=== PATIENT | female | born 1945 | race Caucasian/White ===

== ENCOUNTER 2020-08-25 07:20 | Outpatient (REF) | payer MEDICARE, SELFPAY ==
[2020-08-25 11:41] LABS: Alanine Aminotransferase 14 U/L (0-31); Albumin Level 4.3 g/dL (3.5-5.0); Alkaline Phosphatase 94 U/L (39-117); Aspartate Amino Transferase 19 U/L (5-31); Bilirubin Direct < 0.2 mg/dL (0.0-0.5); Bilirubin Total 0.3 mg/dL (0.0-1.0); Cholesterol 158 mg/dL; HDL Cholesterol 42 mg/dL; LDL Cholesterol Calculated 89 mg/dl; Total Protein 6.7 g/dL (6.5-8.0); Triglycerides 139 mg/dL
== END 2020-08-25 07:21 | disposition home or self-care (01) ==
LOC: HO.HMGCLDS 07:20
PROVIDERS: PCP Internal Medicine; Visit Provider Internal Medicine
DX: E66.9 Obesity, unspecified (principal); E78.00 Pure hypercholesterolemia, unspecified
CPT/HCPCS: 80061; 80076

== ENCOUNTER 2020-09-22 08:58 | Outpatient (REF) | payer MEDICARE, SELFPAY ==
--- NOTE | 2020-09-22 09:02 | XR_ITS ---
EXAMINATION: XR KNEE, RIGHT CLINICAL INFORMATION: Trauma COMPARISON: None TECHNIQUE: Four views of the right knee. FINDINGS: Bone alignment is normal. No fracture or dislocation is seen. There is mild medial femoral tibial joint space narrowing. There are small osteophytes at the patellofemoral joint. There is a large joint effusion. XR/XR knee RT 4V IMPRESSION: Mild degenerative changes. Large joint effusion.
== END 2020-09-22 08:59 | disposition home or self-care (01) ==
LOC: HO.HMGCX 08:58
PROVIDERS: PCP Internal Medicine; Visit Provider Nurse Practitioner Family
DX: S89.91XA Unspecified injury of right lower leg, initial encounter (principal)
CPT/HCPCS: 73564

== ENCOUNTER 2020-10-08 09:42 | Outpatient (REF) | payer MEDICARE, SELFPAY ==
--- NOTE | 2020-10-08 10:53 | XR_ITS ---
EXAMINATION: XR KNEES, STANDING AP XR KNEE, RIGHT CLINICAL INFORMATION: Knee pain COMPARISON: Radiographs right knee 09/22/2020 TECHNIQUE: Standing AP view of both knees is performed along with axial patellar view right knee. FINDINGS: Right: There is moderate narrowing medial knee joint compartment. No erosive change or subchondral sclerosis. Axial view patella shows no lateralization or tilting. There is questionable chondrocalcinosis in region of trochlear notch. Left: There is moderate narrowing medial knee joint compartment. No erosive change or subchondral sclerosis. XR/XR knee standing BI IMPRESSION: Narrowing bilateral medial knee joint compartments, greater on right.
--- NOTE | 2020-10-08 10:53 | XR_ITS ---
EXAMINATION: XR KNEES, STANDING AP XR KNEE, RIGHT CLINICAL INFORMATION: Knee pain COMPARISON: Radiographs right knee 09/22/2020 TECHNIQUE: Standing AP view of both knees is performed along with axial patellar view right knee. FINDINGS: Right: There is moderate narrowing medial knee joint compartment. No erosive change or subchondral sclerosis. Axial view patella shows no lateralization or tilting. There is questionable chondrocalcinosis in region of trochlear notch. Left: There is moderate narrowing medial knee joint compartment. No erosive change or subchondral sclerosis. XR/XR knee RT 2V IMPRESSION: Narrowing bilateral medial knee joint compartments, greater on right.
== END 2020-10-08 09:43 | disposition home or self-care (01) ==
LOC: HO.HOSX 09:42
PROVIDERS: Visit Provider Physician Assistant
DX: M23.91 Unspecified internal derangement of right knee (principal); S89.91XA Unspecified injury of right lower leg, initial encounter; X58.XXXA Exposure to other specified factors, initial encounter; Y93.9 Activity, unspecified; Y92.9 Unspecified place or not applicable; Y99.9 Unspecified external cause status
CPT/HCPCS: 73560; 73565; 99202

== ENCOUNTER 2020-10-15 09:34 | Outpatient (REF) | payer MEDICARE, SELFPAY ==
--- NOTE | 2020-10-15 09:36 | MR_ITS ---
EXAMINATION: MR KNEE WITHOUT CONTRAST, RIGHT CLINICAL INFORMATION: Right knee constant pain. Burning. Aching. COMPARISON: Radiographs dated 10/08/2020. TECHNIQUE: MRI of the knee without contrast was performed using routine sequences on a high-field scanner. FINDINGS: MENISCI: Medial Meniscus: A complex tear is present at both the posterior horn and body with a dominant horizontal component at the posterior horn and a longitudinal component at the extruded meniscal body. There is significant loss of meniscal tissue at both the posterior horn and body, potentially the result of a prior meniscal surgery. There is a 1 cm flap fragment at the posterior horn near the root insertion which is displaced proximally and laterally (images 23 and 24/30 of series 5). Lateral Meniscus: There is a chronic high-grade partial tear of the posterior horn with significant undersurface fraying. A few residual intact fibers are apparent. Significant free-edge fraying is present at the lateral meniscal body. LIGAMENTS: Cruciate: The ACL is diminutive, likely due to normal variation. A chronic sprain or prior partial tear are possible, though felt to be less likely. There is mild increased intrasubstance signal within the PCL with ligamentous thickening, suggesting mucoid degeneration. PCL is intact. Collateral: Edema signal around the medial collateral and fibular collateral ligaments is likely reactive to the underlying meniscal abnormalities. Collateral ligaments are intact. EXTENSOR MECHANISM: Quadriceps and patellar tendons are intact. ARTICULAR CARTILAGE/BONE: Patellofemoral Compartment: There is lateral translation of the patella by 1.3 cm relative to the central trochlear groove, though the knee is fully extended. Minimal chondral fissuring is present at the patella. There are small marginal osteophytes. Minimal chondral fissuring and thinning in the trochlea, more pronounced at the medial facet. Medial Compartment: There is mild generalized chondral thinning and surface irregularity at the medial femoral condyle and more [id number] cartilage loss and surface irregularity at the medial tibial plateau. Small marginal osteophytes. Lateral Compartment: High-grade, full-thickness articular cartilage loss is present at the lateral tibial spine involving much of the medial third of the lateral tibial plateau. More mild chondral thinning is present at the remainder of the lateral tibial plateau. A small full-thickness chondral fissure is present at the posterior weightbearing surface of the lateral femoral condyle with more mild surrounding nonuniform chondral thinning. Small marginal osteophytes. JOINT FLUID AND BURSAE: Large joint effusion. Moderate pes anserine bursitis. Trace Wiley's cyst. A 1 x 0.5 x 0.3 cm osseous fragment in the medial gastrocnemius recess likely corresponds to a loose body. A fragmented osteophyte could also have this appearance. MR/MR knee RT wo con IMPRESSION: 1. Chronic complex tear of the medial meniscus with a flap fragment at the posterior horn and extrusion of the meniscal body, likely superimposed on chronic changes of prior meniscal surgery. 2. Chronic partial tear of the posterior horn of the lateral meniscus at the root insertion and fraying at the meniscal body. 3. [id number] medial compartment osteoarthritis. More mild patellofemoral and lateral compartment osteoarthritis. 4. Large joint effusion, small Wiley's cyst, and moderate pes anserine bursitis.
== END 2020-10-15 09:35 | disposition home or self-care (01) ==
LOC: HO.MRI 09:34
PROVIDERS: Visit Provider Physician Assistant
DX: M23.91 Unspecified internal derangement of right knee (principal)
CPT/HCPCS: 73721

== ENCOUNTER 2020-10-21 | Outpatient (REF) | payer MEDICARE, SELFPAY | END 2020-10-21 00:01 | disposition home or self-care (01) | LOC: HO.VC | PROVIDERS: Visit Provider Internal Medicine | DX: Z23 Encounter for immunization (principal) | CPT/HCPCS: 0011A ==

== ENCOUNTER → 2020-10-21 10:34 | Outpatient (BNVA) | payer MEDICARE, SELFPAY | PROVIDERS: PCP Internal Medicine; Visit Provider Physician Assistant | DX: M17.11 Unilateral primary osteoarthritis, right knee (principal); S83.206D Unspecified tear of unspecified meniscus, current injury, right knee, subsequent encounter | CPT/HCPCS: 20610; 99212; J1020 ==

== ENCOUNTER 2020-11-17 | Outpatient (REF) | payer MEDICARE, SELFPAY | END 2020-11-17 00:01 | disposition home or self-care (01) | LOC: HO.VC | PROVIDERS: Visit Provider Internal Medicine | DX: Z23 Encounter for immunization (principal) | CPT/HCPCS: 0012A ==

== ENCOUNTER 2021-01-09 09:39 | Outpatient (REF) | payer MEDICARE, SELFPAY ==
--- NOTE | ~2021-01-09 | MM_ITS ---
EXAMINATION: MM SCREENING DIGITAL BREAST TOMOSYNTHESIS, BILATERAL CLINICAL INFORMATION: Screening. Asymptomatic. The lifetime risk of breast cancer based on the Tyrer-Cuzick Model is 2%. COMPARISON: Mammography: 11/01/2019, 10/06/2017, 06/09/2017, 02/24/2014 TECHNIQUE: Digital breast tomosynthesis is performed in both the craniocaudal and mediolateral oblique views along with computer-aided detection (CAD). Synthesized 2D images are generated from the tomosynthesis. FINDINGS: The breasts are almost entirely fatty (ACR BI-RADS breast composition Category a). There are no significant masses, abnormal calcifications, or other abnormalities. There are incidental vascular calcifications. The skin contours are smooth. No significant changes. MM/MM tomosynthesis screening BI IMPRESSION: No mammographic evidence of malignancy. ASSESSMENT: BI-RADS 1: Negative RECOMMENDATION: Routine annual mammography screening. This patient's information was entered into a reminder system with a target due date for their next mammogram.
== END 2021-01-09 09:40 | disposition home or self-care (01) ==
LOC: HO.MAMMO 09:39
PROVIDERS: PCP Internal Medicine; Visit Provider Internal Medicine
DX: Z12.31 Encounter for screening mammogram for malignant neoplasm of breast (principal)
CPT/HCPCS: 77063; 77067

== ENCOUNTER 2021-01-19 07:52 | Outpatient (REF) | payer MEDICARE, SELFPAY ==
[2021-01-19 11:24] LABS: MANUAL DIFF FLAG NO
[2021-01-19 11:33] LABS: Basophils Absolute Auto 0.1 X10*3/uL (0.0-0.2); Basophils Percent Auto 1.2 % (0-2); Eosinophils Absolute Auto 0.2 X10*3/uL (0.0-0.4); Eosinophils Percent Auto 2.7 % (0-4); Hematocrit 33.9 % (37-47); Hemoglobin 10.4 g/dl (12.0-16.0); Imm Gran Abs Auto 0.04 X10*3/uL (0.00-0.03); Imm Gran Pct Auto 0.5 % (0.0-0.4); Immature Retic Fraction 11.2 % (3.0-15.9); Lymphocytes Absolute Auto 1.5 X10*3/uL (1.2-4.9); Lymphocytes Percent Auto 19.6 % (20-40); Mean Corpuscular HGB Conc 30.7 g/dl (31.0-35.0); Mean Corpuscular Volume 94.4 fL (80-98); Mean Platelet Volume 9.8 fL (9.4-12.3); Monocytes Absolute Auto 0.5 X10*3/uL (0.1-1.2); Monocytes Percent Auto 6.6 % (2-11); Neutrophils Absolute Auto 5.4 X10*3/uL (2.0-8.3); Neutrophils Percent Auto 69.4 % (45-73); Platelet Count 377 X10*3/uL (160-400); Red Blood Count 3.59 X10*6/uL (4.20-5.50); Red Cell Distribution Width 14.2 % (11.0-16.0); Retic HGB Equivalent 31.7 pg (30.0-35.0); Reticulocyte Percent 1.5 % (0.5-1.8); Reticulocytes Absolute 0.055 X10*6/uL (0.026-0.095); White Blood Count 7.8 X10*3/uL (4.8-10.8)
[2021-01-19 11:48] LABS: Estimated Average Glucose 123 mg/dL; Hemoglobin A1c % 5.9 %
[2021-01-19 11:59] LABS: Glucose Urine UA NEG (NEG); Leukocyte Esterase Urine 1+ (NEG); Nitrite Urine POS (NEG); Urine Blood TRACE (NEG); Urine Ketones NEG (NEG); Urine Protein NEG (NEG-TRACE)
[2021-01-19 12:04] LABS: Appearance Urine HAZY; Color Urine YELLOW
[2021-01-19 12:07] LABS: Alanine Aminotransferase 12 U/L (0-31); Albumin Level 4.1 g/dL (3.5-5.0); Alkaline Phosphatase 99 U/L (39-117); Anion Gap 14 (12-20); Aspartate Amino Transferase 15 U/L (5-31); Bilirubin Total 0.4 mg/dL (0.0-1.0); Blood Urea Nitrogen 19 mg/dL (9-16); Calcium 9.3 mg/dL (8.4-10.2); Carbon Dioxide 29 mmol/L (22-29); Chloride 102 mmol/L (96-108); Cholesterol 181 mg/dL; Estimated Glomerular Filt Rate 41; Glucose Random 113 mg/dL (60-115); HDL Cholesterol 41 mg/dL; Iron 56 mcg/dL (30-160); LDL Cholesterol Calculated 112 mg/dl; Percent Iron Saturation 21 % (15-50); Sodium 140 mmol/L (135-145); Total Iron Binding Capacity 270 mcg/dL (228-428); Total Protein 6.7 g/dL (6.5-8.0); Triglycerides 142 mg/dL; Unsaturated Iron Binding 214 ug/dL
[2021-01-19 12:12] LABS: Ferritin 198 ng/mL (10-250); Free T4 (Free Thyroxine) 0.75 ng/dL (0.71-1.85); Thyroid Stimulating Hormone 1.94 uIU/mL (0.32-4.0); Vitamin D 25-OH Total 56.7 ng/mL (>30)
[2021-01-19 12:17] LABS: Folate 14.6 ng/mL (> or = 4.0); Vitamin B12 277 pg/mL (200-900)
[2021-01-19 12:29] LABS: Creatinine Urine 69.88 mg/dL; Microalbum/Creatinine Ratio Ur 11.4 ug/mg cr
[2021-01-19 12:32] LABS: Bacteria Urine 4+ /LPF; RBC Urine 0-2 /HPF (0); Squamous Epithelial Cell Urine TRACE /LPF
== END 2021-01-19 07:53 | disposition home or self-care (01) ==
LOC: HO.HMGCLDS 07:52
PROVIDERS: PCP Internal Medicine; Visit Provider Internal Medicine
DX: E78.00 Pure hypercholesterolemia, unspecified (principal); E11.65 Type 2 diabetes mellitus with hyperglycemia; I10 Essential (primary) hypertension; D64.9 Anemia, unspecified
CPT/HCPCS: 36415; 80053; 80061; 81001; 82043; 82306; 82607; 82728; 82746; 83036; 83540; 84439; 84443; 85025; 85045

== ENCOUNTER → 2021-01-20 08:46 | Outpatient (BNVA) | payer MEDICARE, SELFPAY | PROVIDERS: Visit Provider Physician Assistant | DX: M17.11 Unilateral primary osteoarthritis, right knee (principal) | CPT/HCPCS: 99212 ==

== ENCOUNTER → 2021-04-01 08:14 | Outpatient (BNVA) | payer MEDICARE, SELFPAY | PROVIDERS: PCP Internal Medicine; Visit Provider Physician Assistant | DX: M25.561 Pain in right knee (principal); M17.11 Unilateral primary osteoarthritis, right knee; S83.206A Unspecified tear of unspecified meniscus, current injury, right knee, initial encounter; X58.XXXA Exposure to other specified factors, initial encounter; Y93.9 Activity, unspecified; Y92.9 Unspecified place or not applicable; Y99.8 Other external cause status; M81.0 Age-related osteoporosis without current pathological fracture; E11.65 Type 2 diabetes mellitus with hyperglycemia; I10 Essential (primary) hypertension; E78.00 Pure hypercholesterolemia, unspecified; Z88.8 Allergy status to other drugs, medicaments and biological substances | CPT/HCPCS: 20610; 99212; J1020 ==

== ENCOUNTER 2021-05-21 09:37 | Outpatient (REF) | payer MEDICARE, SELFPAY ==
--- NOTE | ~2021-05-21 | MM_ITS ---
EXAMINATION: BONE DENSITOMETRY CLINICAL INDICATION: Anesthesia of skin. COMPARISON: Previous BD dated 11/24/2017 and baseline BD dated 07/10/2009. TECHNIQUE: Using a [employer] DXA System (software version: 13.1) manufactured by [employer], dual-energy x-ray absorptiometry was performed of the lumbar spine and left hip. The images are of good technical quality. Summary results are attached. FINDINGS: AP SPINE L1-L4: Current: BMD 1.081 g/cm2, Z-score 0.4, T-score -0.8, normal, 2.9% increase from previous, 2.6% decrease from baseline (<5% change is not significant). Prior: BMD 1.051 g/cm2. Baseline: BMD 1.110 g/cm2. LEFT FEMUR, NECK: Current: BMD 0.773 g/cm2, Z-score -0.3, T-score -1.9, osteopenia. Prior: BMD 0.812 g/cm2. Baseline: BMD 0.865 g/cm2. LEFT FEMUR, TOTAL: Current: BMD 0.857 g/cm2, Z-score 0.2, T-score -1.2, osteopenia, 3.2% decrease from previous, 7.2% decrease from baseline (<5% change is not significant). Prior: BMD 0.885 g/cm2. Baseline: BMD 0.923 g/cm2. IDENTIFIED RISK FACTORS: Low calcium intake, history of fracture (adult). Early menopause, secondary osteoporosis, hysterectomy, bilateral oophorectomy. HISTORY OF FRACTURE: Lower leg. MEDICATIONS: Calcium supplements or multivitamin, vitamin D. MM/XR DEXA axial skeleton IMPRESSION: 1. DIAGNOSIS: Osteopenia based on the lowest T-score value of -1.9 in the femoral neck applying World Health Organization criteria. 2. 10-YEAR FRACTURE RISK PREDICTION, FRAX: Major osteoporotic fracture (clinical spine, forearm, hip or shoulder) 12.6%. Hip fracture 3.1%. 3. Treatment Recommendations: NOF guidelines recommend consideration for treatment in postmenopausal women and men age 50 and older presenting with the following: -A hip or vertebral (clinical or morphometric) fracture. -T-score less than or equal to -2.5 at the femoral neck or spine after appropriate evaluation to exclude secondary causes. -Low bone mass at the hip or spine and a 10-year fracture probability by FRAX of greater than or equal to 3% for hip fracture or greater than or equal to 20% for major osteoporotic fracture based on the [place] adapted WHO algorithm. 4. Other Recommendations: All treatment decisions require clinical judgment and consideration of individual patient factors, including patient preferences, comorbidities, previous drug use, risk factors not captured in the FRAX model (e.g. frailty, falls, vitamin D deficiency, increased bone turnover, interval significant decline in bone density) and possible under or overestimation of fracture risk by FRAX. Additional medical evaluation for secondary cause of low bone mineral density may be appropriate. FUTURE SCAN RECOMMENDATION: People with diagnosed cases of osteoporosis or at high risk for fracture should have regular bone mineral density tests. For patients eligible for Medicare, routine testing is allowed once every 2 years. The testing frequency can be increased to one year for patients who have rapidly progressing disease, those who are receiving or discontinuing medical therapy to restore bone mass, or have additional risk factors.
== END 2021-05-21 09:38 | disposition home or self-care (01) ==
LOC: HO.MAMMO 09:37
PROVIDERS: PCP Internal Medicine; Visit Provider Internal Medicine
DX: Z13.820 Encounter for screening for osteoporosis (principal); R20.0 Anesthesia of skin; M85.80 Other specified disorders of bone density and structure, unspecified site; Z78.0 Asymptomatic menopausal state; Z87.81 Personal history of (healed) traumatic fracture; Z98.890 Other specified postprocedural states; Z90.722 Acquired absence of ovaries, bilateral; Z79.899 Other long term (current) drug therapy
CPT/HCPCS: 77080

== ENCOUNTER 2021-10-20 08:01 | Outpatient (REF) | payer MEDICARE, SELFPAY ==
[2021-10-20 11:32] LABS: Appearance Urine HAZY; Color Urine YELLOW; Glucose Urine UA NEG (NEG); Leukocyte Esterase Urine 1+ (NEG); Nitrite Urine POS (NEG); PH 5.5 (5.0-8.0); Specific Gravity - Urine 1.025 (1.005-1.025); Urine Blood TRACE (NEG); Urine Ketones NEG (NEG); Urine Protein NEG (NEG-TRACE)
[2021-10-20 11:39] LABS: Estimated Average Glucose 123 mg/dL; Hemoglobin A1c % 5.9 %
[2021-10-20 11:55] LABS: Creatinine Urine 123.34 mg/dL
[2021-10-20 12:02] LABS: Bacteria Urine 4+ /LPF; RBC Urine 0-2 /HPF (0); Squamous Epithelial Cell Urine 2+ /LPF
[2021-10-20 12:20] LABS: Alanine Aminotransferase 17 U/L (0-31); Albumin Level 4.3 g/dL (3.5-5.0); Alkaline Phosphatase 76 U/L (39-117); Anion Gap 12 (12-20); Aspartate Amino Transferase 23 U/L (5-31); Bilirubin Total 0.5 mg/dL (0.0-1.0); Blood Urea Nitrogen 22 mg/dL (9-16); Calcium 9.5 mg/dL (8.4-10.2); Carbon Dioxide 28 mmol/L (22-29); Chloride 103 mmol/L (96-108); Cholesterol 168 mg/dL; Estimated Glomerular Filt Rate 32; Glucose Random 123 mg/dL (60-115); HDL Cholesterol 34 mg/dL; LDL Cholesterol Calculated 99 mg/dl; Potassium 5.2 mmol/L (3.3-5.1); Sodium 138 mmol/L (135-145); Triglycerides 175 mg/dL
== END 2021-10-20 08:02 | disposition home or self-care (01) ==
LOC: HO.HMGCLDS 08:01
PROVIDERS: PCP Internal Medicine; Visit Provider Internal Medicine
DX: E11.65 Type 2 diabetes mellitus with hyperglycemia (principal); E78.00 Pure hypercholesterolemia, unspecified; I10 Essential (primary) hypertension
CPT/HCPCS: 36415; 80053; 80061; 81001; 83036; 84443

== ENCOUNTER → 2022-01-20 12:00 | Outpatient (RCR) | payer MEDICARE, SELFPAY ==
--- NOTE | 2020-11-04 15:44 | MHC.PT.EP ---
[facility] [place] [facility] [place] [facility] [place] [facility] [address] Kashif Barth [address] [phone] F: [phone] F: [phone] F: [phone] F: [phone] Physical Therapy Plan of Care Date of Evaluation: 11/04/20 Date of Surgery: Diagnosis: R knee OA. Assessment: Pt is a 75 y/o female referred to PT for eval and treat of R knee OA who presents with signs and sx consistent with R knee dysfunction resulting in decreased tolerance and ability to perform ambulatory, standing tasks for duration, perform transfers, negotiate stairs, perform squatting activities and HH chores secondary to decreased hip and knee strength, decreased knee ROM as well as decreased LE posture, increased R LE tissue tension, gait abnormality, B UE compensation issues, and pain. Pt is deemed an appropriate candidate to receive skilled PT in order to address her physical limitations to improve her functional ability. Frequency and Duration: The patient will be seen 2 x/ wk x 6 wks. Short Term Goals: In 1 week: initiate HEP with evidence of compliance. In 4 weeks: improve baseline pain with activity to < 5/10, initial: 10/10. [employer] Goals: In 6 weeks: Pt will b able to walk 2 blocks with at most a little bit of difficulty; initial: unable or extreme difficulty (LEFI) In 6 weeks: improve R knee extension MMT to > 4/5; initial 4-/5. In 6 weeks: I with HEP. Treatment Plan: Modalities to reduce pain, spasms and effusion. Manual therapy to restore motion and function. Therapeutic exercise to improve strength and flexibility. Neuromuscular re-education for posture and balance. Therapeutic activities to return to functional activities of daily living. Electronically signed by: José Miguel Jain PT. Please sign and return to therapist. Thank you for your referral.
--- NOTE | 2020-11-27 14:49 | MHC.PT.DC ---
[facility] [place] [facility] [place] [facility] [place] [facility] [address] Kashif Barth [address] [phone] F: [phone] F: [phone] F: [phone] F: [phone] Physical Therapy Discharge Report Diagnosis: R knee OA. Date of Surgery: Date of Evaluation: 11/04/20 Date of Discharge: 11/27/20 Treatments to Date: 6 Cancellations to Date: 0 No Shows to Date: 0 Discharge Status: Improved Function Independent with HEP Patient Elected to Stop Recommend MD Follow-up Discharge Summary: Michelle has been an active participant in her therapy in and out of the clinic. Though some pain and weakness persists she has made progress towards her goals of improved knee pain and function though has been limited d/t high co-pay costs and B shoulder pain which has significantly limited her recovery; she states while she has been in knee pain her B shoulder have been overcompensating; Pt has had some treatment for shoulder pain as it is affecting her ability to address her knee dysfunction. Pt's knee pain and function is improving though persists with significant shoulder pain about her deltoid tuberosity B. Pt may require alternative management for her shoulder pain. Electronically signed by: José Miguel Jain PT Please sign and return to therapist. Thank you for your referral.
== END | disposition home or self-care (01) ==
LOC: HO.PTCHIC 11-04 08:38
PROVIDERS: PCP Internal Medicine; Visit Provider Physician Assistant
DX: M17.11 Unilateral primary osteoarthritis, right knee (principal); S83.206A Unspecified tear of unspecified meniscus, current injury, right knee, initial encounter
CPT/HCPCS: 97035; 97110; 97161

== ENCOUNTER 2022-02-02 12:25 | Outpatient (REF) | payer MEDICARE, SELFPAY ==
--- NOTE | ~2022-02-02 | MM_ITS ---
EXAMINATION: MM SCREENING DIGITAL BREAST TOMOSYNTHESIS, BILATERAL CLINICAL INFORMATION: Screening. Asymptomatic. The lifetime risk of breast cancer based on the Tyrer-Cuzick Model is 3%. COMPARISON: Mammography: 01/09/2021, 11/01/2019, 08/06/2018 TECHNIQUE: Digital breast tomosynthesis is performed in both the craniocaudal and mediolateral oblique views along with computer-aided detection (CAD). Synthesized 2D images are generated from the tomosynthesis. FINDINGS: There are scattered areas of fibroglandular density (ACR BI-RADS breast composition Category b). There are no significant masses, abnormal calcifications, or other abnormalities. Background stromal and fibroglandular densities are similar to prior studies. There are scattered bilateral predominantly vascular calcifications. The axilla and skin contours are unremarkable. MM/MM tomosynthesis screening BI IMPRESSION: No mammographic evidence of malignancy. ASSESSMENT: BI-RADS 1: Negative RECOMMENDATION: Routine annual mammography screening. This patient's information was entered into a reminder system with a target due date for their next mammogram.
== END 2022-02-02 12:26 | disposition home or self-care (01) ==
LOC: HO.MAMMO 12:25
PROVIDERS: PCP Internal Medicine; Visit Provider Internal Medicine
DX: Z12.31 Encounter for screening mammogram for malignant neoplasm of breast (principal)
CPT/HCPCS: 77063; 77067

== ENCOUNTER → 2022-02-21 11:12 | Outpatient (BNVA) | payer MEDICARE, SELFPAY | PROVIDERS: PCP Internal Medicine; Visit Provider Physician Assistant | DX: M17.11 Unilateral primary osteoarthritis, right knee (principal) | CPT/HCPCS: 20610; 99212; J1040 ==

== ENCOUNTER 2022-04-27 12:09 | Outpatient (REF) | payer MEDICARE, SELFPAY ==
[2022-04-27 13:40] LABS: MANUAL DIFF FLAG NO
[2022-04-27 13:46] LABS: Basophils Absolute Auto 0.1 X10*3/uL (0.0-0.2); Basophils Percent Auto 1.3 % (0-2); Eosinophils Absolute Auto 0.2 X10*3/uL (0.0-0.4); Eosinophils Percent Auto 2.1 % (0-4); Hematocrit 34.6 % (37.0-47.0); Hemoglobin 11.2 g/dl (12.0-16.0); Imm Gran Abs Auto 0.05 X10*3/uL (0.00-0.03); Imm Gran Pct Auto 0.6 % (0.0-0.4); Immature Retic Fraction 10.1 % (3.0-15.9); Lymphocytes Absolute Auto 1.9 X10*3/uL (1.2-4.9); Lymphocytes Percent Auto 24.3 % (20-40); Mean Corpuscular HGB Conc 32.4 g/dl (31.0-35.0); Mean Corpuscular Hemoglobin 31.3 pg (27.0-33.0); Mean Corpuscular Volume 96.6 fL (80.0-98.0); Mean Platelet Volume 10.2 fL (9.4-12.3); Monocytes Absolute Auto 0.5 X10*3/uL (0.1-1.2); Monocytes Percent Auto 6.2 % (2-11); Neutrophils Absolute Auto 5.1 x10*3/uL (2.0-8.3); Neutrophils Percent Auto 65.5 % (45-73); Platelet Count 308 X10*3/uL (160-400); Red Blood Count 3.58 X10*6/uL (4.20-5.50); Red Cell Distribution Width 13.5 % (11.0-16.0); Retic HGB Equivalent 34.9 pg (30.0-35.0); Reticulocyte Percent 1.8 % (0.5-1.8); Reticulocytes Absolute 0.063 X10*6/uL (0.026-0.095); White Blood Count 7.8 X10*3/uL (4.8-10.8)
[2022-04-27 14:11] LABS: Alanine Aminotransferase 11 U/L (0-31); Albumin Level 4.3 g/dL (3.5-5.0); Alkaline Phosphatase 80 U/L (39-117); Anion Gap 15 (12-20); Aspartate Amino Transferase 17 U/L (5-31); Bilirubin Total 0.4 mg/dL (0.0-1.0); Blood Urea Nitrogen 21 mg/dL (9-16); Calcium 9.1 mg/dL (8.4-10.2); Carbon Dioxide 24 mmol/L (22-29); Chloride 104 mmol/L (96-108); Estimated Glomerular Filt Rate 34; Glucose Random 119 mg/dL (60-115); Iron 110 mcg/dL (30-160); Percent Iron Saturation 37 % (15-50); Potassium 4.4 mmol/L (3.3-5.1); Sodium 139 mmol/L (135-145); Total Iron Binding Capacity 294 mcg/dL (228-428); Total Protein 6.9 g/dL (6.5-8.0); Unsaturated Iron Binding 184 ug/dL
[2022-04-27 14:36] LABS: Ferritin 79 ng/mL (10-250)
[2022-04-27 14:47] LABS: Vitamin B12 337 pg/mL (200-900)
[2022-04-27 16:36] LABS: Folate 10.3 ng/mL (> or = 4.0)
== END 2022-04-27 12:10 | disposition home or self-care (01) ==
LOC: HO.HMGCLDS 12:09
PROVIDERS: PCP Internal Medicine; Visit Provider Internal Medicine
DX: E11.65 Type 2 diabetes mellitus with hyperglycemia (principal)
CPT/HCPCS: 36415; 80053; 82607; 82728; 82746; 83540; 85025; 85045

== ENCOUNTER → 2022-06-20 10:19 | Outpatient (BNVA) | payer MEDICARE, SELFPAY | PROVIDERS: PCP Internal Medicine; Visit Provider Orthopaedic Surgery | DX: M17.11 Unilateral primary osteoarthritis, right knee (principal); E11.65 Type 2 diabetes mellitus with hyperglycemia; M25.361 Other instability, right knee; M25.561 Pain in right knee | CPT/HCPCS: 99212 ==

== ENCOUNTER 2022-09-15 09:06 | Outpatient (REF) | payer MEDICARE, SELFPAY ==
[2022-09-15 09:26] LABS: MANUAL DIFF FLAG NO
[2022-09-15 10:34] LABS: Prothrombin Time 11.8 SEC (10.0-13.1)
[2022-09-15 10:35] LABS: Basophils Absolute Auto 0.1 X10*3/uL (0.0-0.2); Basophils Percent Auto 1.3 % (0-2); Eosinophils Absolute Auto 0.3 X10*3/uL (0.0-0.4); Eosinophils Percent Auto 3.1 % (0-4); Hematocrit 37.1 % (37.0-47.0); Hemoglobin 11.8 g/dl (12.0-16.0); Imm Gran Abs Auto 0.04 X10*3/uL (0.00-0.03); Imm Gran Pct Auto 0.5 % (0.0-0.4); Lymphocytes Absolute Auto 1.7 X10*3/uL (1.2-4.9); Lymphocytes Percent Auto 20.5 % (20-40); Mean Corpuscular HGB Conc 31.8 g/dl (31.0-35.0); Mean Corpuscular Hemoglobin 30.6 pg (27.0-33.0); Mean Corpuscular Volume 96.1 fL (80.0-98.0); Mean Platelet Volume 9.9 fL (9.4-12.3); Monocytes Absolute Auto 0.5 X10*3/uL (0.1-1.2); Monocytes Percent Auto 6.2 % (2-11); Neutrophils Absolute Auto 5.6 x10*3/uL (2.0-8.3); Neutrophils Percent Auto 68.4 % (45-73); Platelet Count 360 X10*3/uL (160-400); Red Blood Count 3.86 X10*6/uL (4.20-5.50); Red Cell Distribution Width 13.2 % (11.0-16.0); Retic HGB Equivalent 35.7 pg (30.0-35.0); Reticulocyte Percent 1.6 % (0.5-1.8); Reticulocytes Absolute 0.063 X10*6/uL (0.026-0.095); White Blood Count 8.2 X10*3/uL (4.8-10.8)
[2022-09-15 10:37] LABS: Estimated Average Glucose 114 mg/dL; Hemoglobin A1c % 5.6 %
[2022-09-15 10:56] LABS: Creatinine Urine 97.48 mg/dL; Microalbum/Creatinine Ratio Ur 10.2 ug/mg cr
[2022-09-15 11:22] LABS: Alanine Aminotransferase 13 U/L (0-31); Albumin Level 4.2 g/dL (3.5-5.0); Alkaline Phosphatase 108 U/L (39-117); Anion Gap 11 (12-20); Aspartate Amino Transferase 20 U/L (5-31); Bilirubin Total 0.4 mg/dL (0.0-1.0); Blood Urea Nitrogen 22 mg/dL (9-16); Calcium 9.3 mg/dL (8.4-10.2); Carbon Dioxide 30 mmol/L (22-29); Chloride 101 mmol/L (96-108); Cholesterol 188 mg/dL; Estimated Glomerular Filt Rate 35; Ferritin 78 ng/mL (10-250); Glucose Random 98 mg/dL (60-115); HDL Cholesterol 40 mg/dL; Iron 85 mcg/dL (30-160); LDL Cholesterol Calculated 108 mg/dl; Percent Iron Saturation 33 % (15-50); Potassium 5.3 mmol/L (3.3-5.1); Sodium 137 mmol/L (135-145); Thyroid Stimulating Hormone 2.66 uIU/mL (0.32-4.0); Total Iron Binding Capacity 259 mcg/dL (228-428); Total Protein 6.9 g/dL (6.5-8.0); Triglycerides 202 mg/dL; Unsaturated Iron Binding 174 ug/dL; Vitamin D 25-OH Total 32.9 ng/mL (>30)
[2022-09-15 11:30] LABS: Folate 6.7 ng/mL (> or = 4.0); Vitamin B12 406 pg/mL (200-900)
[2022-09-15 11:41] LABS: Free T4 (Free Thyroxine) 0.78 ng/dL (0.71-1.85)
== END 2022-09-15 09:07 | disposition home or self-care (01) ==
LOC: HO.LAB 09:06
PROVIDERS: Nurse Practitioner Family; PCP Internal Medicine; Visit Provider Internal Medicine
DX: Z01.812 Encounter for preprocedural laboratory examination (principal); M17.11 Unilateral primary osteoarthritis, right knee; M25.361 Other instability, right knee; E78.00 Pure hypercholesterolemia, unspecified; E11.65 Type 2 diabetes mellitus with hyperglycemia; M81.0 Age-related osteoporosis without current pathological fracture
CPT/HCPCS: 36415; 80053; 80061; 82043; 82306; 82607; 82728; 82746; 83036; 83540; 84439; 84443; 85025; 85045; 85610

== ENCOUNTER 2022-09-20 05:53 | Inpatient (IN) | payer MEDICARE, SELFPAY ==
--- NOTE | 2022-09-06 | ECG_ITS ---
Test Reason : preop Blood Pressure : / mmHG Vent. Rate : 055 BPM Atrial Rate : 055 BPM P-R Int : 144 ms QRS Dur : 086 ms QT Int : 408 ms P-R-T Axes : 039 032 057 degrees QTc Int : 390 ms Sinus bradycardia Otherwise normal ECG When compared with ECG of 24-OCT-2012 07:10, No significant change was found Referred By: Charlotte Abebe Electronically Signed By:Abraham Hendricks
[2022-09-06 12:19] VITALS: BP 116/56; PULSE 52; RESP 20; O2SAT 97; BMI 30.9
--- NOTE | 2022-09-06 12:37 | P.CONAN_ITS ---
Documented by User: Maday Roberts NP 09/15/22 15:22 HPI - Anesthesia Eval Consult details Narrative: 77yo F for Right Knee Replacement Total PCP cleared PMFSH Active Problems Active Problems: All Active Problems (Updated 09/06/22 @ 12:10 by Amie Ervin, RN) Anemia (Acute) Sprain of right knee (Acute) Right knee injury (Acute) Knee effusion, right (Acute) Internal derangement of right knee (Acute) Osteoarthritis of right knee (Acute) Right knee meniscal tear (Acute) Annual physical exam (Acute) Facial basal cell cancer (Acute) Bilateral hand numbness (Acute) Osteopenia (Acute) Generalized anxiety disorder (Acute) Colon cancer screening (Acute) Osteoarthritis, knee (Acute) Foul smelling urine (Acute) Constipation (Acute) Tinea corporis (Acute) Annual physical exam (Acute) Generalized anxiety disorder (Acute) Colonoscopy refused (Acute) Renal insufficiency (Acute) Patellofemoral instability of right knee with pain (Acute) Fatigue (Acute) Type 2 diabetes mellitus with hyperglycemia (Acute) Hypercholesterolemia (Acute) Obesity (BMI 30-39.9) (Acute) Hypertension (Acute) Past Medical History Medical History (Updated 09/06/22 @ 12:10 by Amie Ervin RN) Anemia Anxiety and depression Bladder prolapse Cervical compression fracture Chronic renal insufficiency Fatigue Hypercholesterolemia Hypertension IBS (irritable bowel syndrome) Obesity (BMI 30-39.9) Osteoarthritis Osteopenia Osteoporosis PTSD (post-traumatic stress disorder) Rectocele Skin cancer, basal cell Type 2 diabetes mellitus with hyperglycemia Vitamin D deficiency Family History Family History Mother Heart attack Father No problems noted. Sister Heart abnormality Family history of problems with anesthesia: No Surgical History Surgical History H/O colonoscopy History of bilateral cataract extraction History of bladder surgery History of section History of hysterectomy with bilateral oophorectomy Hx of left knee surgery Hx of meniscectomy of right knee History of Problems with Anesthesia: No Social History Social History Housing: Apartment Are you a primary skin care consultant to a significant other at home: No Do you presently have visiting nurse or other home services: No Alcohol intake: never Patient Tobacco Use Status: Never used Tobacco e-Cigarette/Vaping Use: Never Used Second Hand Smoke Exposure: No Use of substances other than those prescribed or required for medical reasons: No Have you been hit, kicked, punched, or otherwise hurt by someone within the past year? If so, by whom?: No Are you DNR?: Yes Advance Directives Information Provided: Yes (advised to bring copy DOS) Advance Directives on File: No Recently lost weight without trying: No Eating poorly because of decreased appetite: No Nutrition Risks: Surgical patient >75years Poor oral hygiene: No (full upper & lower denture (doesn't wear lower)) service: No Current occupational status: retired Current occupation: Right Handed Current occupational exposures/hazards: No Cognitive needs: No Hearing needs: No Vision needs: Yes Meds Allergies Allergy/AdvReac Type Severity Reaction Status Date / Time lipitor Allergy Intermediate leg cramps Verified 09/15/22 10:17 simvastatin Allergy Intermediate leg cramps Verified 09/15/22 10:17 meperidine [From DEMEROL] AdvReac Intermediate Vomiting/ passed Verified 09/15/22 10:17 out Home Medications Medication Instructions Recorded Confirmed Last Taken Type calcium carbonate 250 mg-vitamin 1 tab PO DAILY 08/28/20 09/05/22 09/18/22 H istory D3 3.125 mcg (125 unit) tablet (Oyster Shell Calcium-Vitamin D3) cholecalciferol (vitamin D3) 125 1 mcg PO DAILY 08/28/20 09/05/22 09/18/22 History mcg (5,000 unit) disintegrating tablet cyanocobalamin (vitamin B-12) 1,000 mcg PO DAILY 08/28/20 09/05/22 09/18/22 History 1,000 mcg capsule multivitamin 1 tab PO DAILY 08/28/20 09/05/22 09/18/22 History sertraline 100 mg tablet 100 mg PO DAILY 04/29/22 09/05/22 09/20/22 History clonazepam 2 mg tablet 2 mg PO BEDTIME 09/06/22 09/06/22 09/18/22 History metformin 500 mg tablet 500 mg PO QPM 09/06/22 09/06/22 09/18/22 History rosuvastatin 20 mg tablet (Crestor) 20 mg PO BEDTIME 09/06/22 09/06/22 09/18/22 History tramadol 50 mg tablet 50 mg PO BID PRN Pain 09/06/22 09/05/22 09/13/22 History Exam Exam Date and Time: September 06, 2022 1237 Height,Weight and Vital Signs: Height 5 ft 3 in Weight 79.379 kg Last Vital Signs Pulse 52 09/06/22 12:19 Resp 20 09/06/22 12:19 BP 116/56 L 09/06/22 12:19 Pulse Ox 97 09/06/22 12:19 O2 Del Method 09/06/22 12:19 Pertinent Lab Results Pertinent Lab Results: Laboratory Tests 09/15/22 09/15/22 09:24 09:24 WBC 8.2 Hgb 11.8 L Hct 37.1 Plt Count 360 Sodium 137 Potassium 5.3 H D Chloride 101 Carbon Dioxide 30 H BUN 22 H Creatinine 1.44 H Narrative Narrative: EKG 08/2022 Vent. Rate : 055 BPM ? ? Atrial Rate : 055 BPM ?? P-R Int : 144 ms? QRS Dur : 086 ms ? ? QT Int : 408 ms ? ? ? P-R-T Axes : 039 032 057 degrees ?? QTc Int : 390 ms ? Sinus bradycardia Otherwise normal ECG When compared with ECG of 24-OCT-2012 07:10, No significant change was found Airway Mallampati Class: I TM Dist: >3cm Neck ROM: Limited (Post fx) Denture: Upper and Lower Heart: RRR Lungs: CTAB Assessment and Plan Assessment Anesthesia Assessment: Anesthesia Plan Discussed and PAT Visit Final Anesthetic Review Family History of Problems with Anesthesia: No History of Problems with Anesthesia: No Documented by User: Alex Bacon MD 09/20/22 09:49 [facility] Past Medical History Medical History (Updated 09/06/22 @ 12:10 by Amie Ervin RN) Anemia Anxiety and depression Bladder prolapse Cervical compression fracture Chronic renal insufficiency Fatigue Hypercholesterolemia Hypertension IBS (irritable bowel syndrome) Obesity (BMI 30-39.9) Osteoarthritis Osteopenia Osteoporosis PTSD (post-traumatic stress disorder) Rectocele Skin cancer, basal cell Type 2 diabetes mellitus with hyperglycemia Vitamin D deficiency Family History Family History Mother Heart attack Father No problems noted. Sister Heart abnormality Surgical History Surgical History H/O colonoscopy History of bilateral cataract extraction History of bladder surgery History of section History of hysterectomy with bilateral oophorectomy Hx of left knee surgery Hx of meniscectomy of right knee Social History Social History Housing: Apartment Are you a primary skin care consultant to a significant other at home: No Do you presently have visiting nurse or other home services: No Alcohol intake: never Patient Tobacco Use Status: Never used Tobacco e-Cigarette/Vaping Use: Never Used Second Hand Smoke Exposure: No Use of substances other than those prescribed or required for medical reasons: No Have you been hit, kicked, punched, or otherwise hurt by someone within the past year? If so, by whom?: No Are you DNR?: Yes Advance Directives Information Provided: Yes (advised to bring copy DOS) Advance Directives on File: No Recently lost weight without trying: No Eating poorly because of decreased appetite: No Nutrition Risks: Surgical patient >75years Poor oral hygiene: No (full upper & lower denture (doesn't wear lower)) service: No Current occupational status: retired Current occupation: Right Handed Current occupational exposures/hazards: No Cognitive needs: No Hearing needs: No Vision needs: Yes Meds Allergies Allergy/AdvReac Type Severity Reaction Status Date / Time lipitor Allergy Intermediate leg cramps Verified 09/15/22 10:17 simvastatin Allergy Intermediate leg cramps Verified 09/15/22 10:17 meperidine [From DEMEROL] AdvReac Intermediate Vomiting/ passed Verified 09/15/22 10:17 out Home Medications Medication Instructions Recorded Confirmed Last Taken Type calcium carbonate 250 mg-vitamin 1 tab PO DAILY 08/28/20 09/05/22 09/18/22 History D3 3.125 mcg (125 unit) tablet (Oyster Shell Calcium-Vitamin D3) cholecalciferol (vitamin D3) 125 1 mcg PO DAILY 08/28/20 09/05/22 09/18/22 History mcg (5,000 unit) disintegrating tablet cyanocobalamin (vitamin B-12) 1,000 mcg PO DAILY 08/28/20 09/05/22 09/18/22 Hi story 1,000 mcg capsule multivitamin 1 tab PO DAILY 08/28/20 09/05/22 09/18/22 History sertraline 100 mg tablet 100 mg PO DAILY 04/29/22 09/05/22 09/20/22 History clonazepam 2 mg tablet 2 mg PO BEDTIME 09/06/22 09/06/22 09/18/22 History metformin 500 mg tablet 500 mg PO QPM 09/06/22 09/06/22 09/18/22 History rosuvastatin 20 mg tablet (Crestor) 20 mg PO BEDTIME 09/06/22 09/06/22 09/18/22 History tramadol 50 mg tablet 50 mg PO BID PRN Pain 09/06/22 09/05/22 09/13/22 History Exam Airway Loose/Missing/Broken Teeth: Yes Assessment and Plan Assessment Anesthesia Assessment: Chart Reviewed Final Anesthetic Review NPO: Yes ASA Class: III Final Preanesthetic Review: Meds/Allgs Chart Reviewed, Consent Obtained/Reviewed and Anes Risks/Benef Reviewed Patient Risk: Intermediate Procedure Risk: Intermediate Anesthetic Plan Anesthetic Plan: GA and Regional Block Disposition: Standard PACU
[2022-09-06 13:40] LABS: MANUAL DIFF FLAG NO
[2022-09-06 14:09] LABS: Basophils Absolute Auto 0.1 X10*3/uL (0.0-0.2); Basophils Percent Auto 1.1 % (0-2); Eosinophils Absolute Auto 0.3 X10*3/uL (0.0-0.4); Eosinophils Percent Auto 3.1 % (0-4); Hematocrit 35.9 % (37.0-47.0); Hemoglobin 11.5 g/dl (12.0-16.0); Imm Gran Abs Auto 0.03 X10*3/uL (0.00-0.03); Imm Gran Pct Auto 0.4 % (0.0-0.4); Lymphocytes Absolute Auto 1.8 X10*3/uL (1.2-4.9); Lymphocytes Percent Auto 22.8 % (20-40); Mean Corpuscular Hemoglobin 30.5 pg (27.0-33.0); Mean Corpuscular Volume 95.2 fL (80.0-98.0); Monocytes Absolute Auto 0.5 X10*3/uL (0.1-1.2); Monocytes Percent Auto 6.1 % (2-11); Neutrophils Absolute Auto 5.3 x10*3/uL (2.0-8.3); Neutrophils Percent Auto 66.5 % (45-73); Platelet Count 318 X10*3/uL (160-400); Red Blood Count 3.77 X10*6/uL (4.20-5.50); Red Cell Distribution Width 12.8 % (11.0-16.0)
[2022-09-06 15:01] LABS: Anion Gap 12 (12-20); Blood Urea Nitrogen 20 mg/dL (9-16); Calcium 9.2 mg/dL (8.4-10.2); Carbon Dioxide 28 mmol/L (22-29); Chloride 101 mmol/L (96-108); Estimated Glomerular Filt Rate 38; Glucose Random 113 mg/dL (60-115); Potassium 4.4 mmol/L (3.3-5.1); Sodium 137 mmol/L (135-145)
[2022-09-06 15:04] LABS: MRSA Nasal PCR NEGATIVE (Negative); SA Nasal PCR NEGATIVE (Negative)
[2022-09-20] VITALS (24 sets, daily range): BP systolic 104–174; BP diastolic 34–71; PULSE 48–80; RESP 12–20; TEMP 36–37.4; O2SAT 94–100
--- NOTE | ~2022-09-20 | XR_ITS ---
EXAMINATION: XR KNEE, RIGHT CLINICAL INFORMATION: Right knee arthroplasty. COMPARISON: Right knee radiographs 10/08/2020 TECHNIQUE: 3 portable views of the right knee are obtained. FINDINGS: Patient is status post right total knee arthroplasty. The hardware is intact. There is no acute fracture or dislocation or destructive process. No osteolysis. There is gas in the joint capsule and subcutaneous gas as well as capsular effusion and overlying skin jacque as expected. XR/XR knee RT 2V IMPRESSION: Status post right total knee arthroplasty.
[2022-09-20 06:17] LABS: Glucose, Whole Blood 130 mg/dL (60-115)
[2022-09-20 06:37] LABS: COVID-19 Test Negative (Negative); IDNOW Serial# 16C4AD1C
[2022-09-20 06:41] LABS: Hematocrit 36.6 % (37.0-47.0); Hemoglobin 11.8 g/dl (12.0-16.0)
[2022-09-20] MEDS: Lactated Ringers 1,000 ML 100 ML IVCONT ×3 (06:58→20:59)
--- NOTE | 2022-09-20 07:30 | MHC.SHP ---
Pre-Procedural Eval Section A Date of Service: 09/20/22 The patient is an INPATIENT: No Changes since office visit: No Cold of Flu in the past 2 weeks, No New Medical Problems, No Changes in Medication and No Patient answered all questions The History & Physical has been completed within 30 days and I have reviewed it.: Yes Section B Chief Complaint: RTKA Allergies: Allergies Allergy/AdvReac Type Severity Reaction Status Date / Time lipitor Allergy Intermediate leg cramps Verified 09/15/22 10:17 simvastatin Allergy Intermediate leg cramps Verified 09/15/22 10:17 meperidine [From DEMEROL] AdvReac Intermediate Vomiting/ passed Verified 09/15/22 10:17 out Plan I have reviewed the history and physical and performed a pertinent physical examination on my patient. No changes have occurred unless specified. Time Spent With Patient Time: Total time managing care of this patient today ____ minutes.
--- NOTE | 2022-09-20 09:06 | P.BOP_ITS ---
Brief Operative Note Date of Service: 09/20/22 Pre-op diagnosis: Right knee OA Post-op diagnosis: same Procedure: Right TKA Implants: [place] Triathlon press fit cruciate retaining Surgeon: Herve Alexander MD Anesthesia: regional and spinal Was an Ultrasound Specialist used for this Procedure?: Yes Ultrasound Specialist: Mary Koch Estimated blood loss (mL): 20 IV fluids (mL): 1,000 Pathology: other Condition: stable Disposition: PACU
--- NOTE | 2022-09-20 09:08 | P.OP_ITS ---
Operative Note Operative Note Date of Service: 09/20/22 Narrative: Pre-op diagnosis: Right knee OA Post-op diagnosis: same Procedure: Right TKA Implants: [place] Triathlon press fit cruciate retaining Surgeon: Herve Alexander MD Anesthesia: regional and spinal Was an Tea And Spice Supervisor used for this Procedure?: Yes Tea And Spice Supervisor: Mary Koch Estimated blood loss (mL): 20 IV fluids (mL): 1,000 Pathology: other Condition: stable Disposition: PACU Procedure in detail: The patient was brought to the operating room and prepped and draped in standard sterile fashion. A time-out was called to identify proper site proper procedure proper surgeon and IV antibiotics were administered. 1 g of IV tranexamic acid was administered. I began by making a midline incision to the retinaculum and performed a medial parapatellar arthrotomy. The patella was translated laterally and the knee was flexed up. There was medial compartment eburnation. I performed a small medial peel and resected the infrapatellar fat pad. [place]'s line was then used to drill my intramedullary femoral guide and my distal femur cut of 10 mm was made in 5 degrees of valgus while protecting the soft tissues. I then measured a # 3 femur and placed my cutting guide and made my anterior posterior and chamfer cuts protecting the soft tissues at all times. Once I was satisfied with my cuts I turned my attention to the tibia. I removed the meniscus medially and laterally and , using an external cutting guide, in line with the tibial crest and the third ray, I made my distal tibial cut in 3 deg slope of while protecting the PCL the posterior soft tissues at all times. An extension block was used to confirm appropriate amount of bony resection. I then sized a #4 tibia and once I was satisfied that there was complete tibial coverage I placed my trial and with the trial femur in place took the knee thr ough range of motion. I was satisfied with the extension and flexion as well as the stability and balance at 0, 30 and 90 degrees. I then turned my attention to the patella where I removed 1 cm from the undersurface of the patella and then trialed a 32a patellar button. Again the knee was taken through range of motion and I was satisfied with the tracking. I then returned to the femur and drilled my femoral lug holes and prepared the tibia. A femoral bone plug was placed and the knee was irrigated copiously. I then press fit the patella, tibia and femur in standard fashion. I trialed different inserts until I selected a #9 insert. The final insert was placed and a 3 minutes iodine soak with local TXA was performed. A Werewolf cautery wand was used to maintain hemostasis over the capsule and meniscal beds, the gutters and peripatellar soft tissues. The knee was then closed with a running Quill suture, a 3 0 Vicryl and jacque on the skin. Patient was then placed in sterile dressing and brought to recovery room in stable condition there were no known complications.
[2022-09-20] MEDS: fentaNYL citrate/PF 100 MCG/2 ML VIAL 25 MCG IVPUSH ×4 (09:35→10:35)
[2022-09-20] MEDS: Acetaminophen 1,000 MG/100 ML PIGGYBACK 400 MG IV (09:45)
[2022-09-20] MEDS: oxyCODONE HCl Immed Release 5 MG TABLET PO ×2 (10:08→14:12)
--- NOTE | 2022-09-20 10:29 | PHA.MEDREC ---
Pharmacy Consult ? Medication Reconciliation Pharmacy has completed the medication reconciliation. Reviewed med rec done by nursing
[2022-09-20] MEDS: ceFAZolin Sodium/Dextrose,Iso 2 GM/50 ML PIGGYBACK IV (13:53)
[2022-09-20] MEDS: HYDROmorphone HCl 0.5 MG/0.5 ML SYRINGE 0.25 MG IVPUSH ×2 (16:35→16:40)
--- NOTE | 2022-09-20 18:19 | P.CONHOSP_ITS ---
History of Present Illness Data of Consult Service Date: 09/20/22 Primary Care Provider: Alexis Melara MD [facility] Reason for consult: Diabetes and medical management Patient is a 77-year-old female with a PMH significant for diabetes, paroxysmal AFib, anxiety, and HLD who was hospitalized s/p right knee TKA. Seen for diabetes and medical management. Patient seen at bedside plain in bed comfortably. Complains of right knee pain at surgical sites. No other complaints at this time. Denies fever, chills, nausea, vomiting. No chest pain/pressure, palpitations. No shortness of breath. Denies abdominal pain. Review of Systems Review of Systems: Right knee pain at site of surgical sites No chest pain/pressure, palpitations No shortness of breath Denies abdominal pain Yes all other systems are reviewed and are negative [facility] Medical History (Updated 09/20/22 @ 18:36 by CYNDY Shahid) Anemia Anxiety and depression Bladder prolapse Cervical compression fracture Chronic renal insufficiency Fatigue Hypercholesterolemia Hypertension IBS (irritable bowel syndrome) Obesity (BMI 30-39.9) Osteoarthritis Osteopenia Osteoporosis PTSD (post-traumatic stress disorder) Rectocele Skin cancer, basal cell Type 2 diabetes mellitus with hyperglycemia Vitamin D deficiency Family History Mother Heart attack Father No problems noted. Sister Heart abnormality Surgical History H/O colonoscopy History of bilateral cataract extraction History of bladder surgery History of section History of hysterectomy with bilateral oophorectomy Hx of left knee surgery Hx of meniscectomy of right knee Social History Housing: Apartment Are you a primary personal care home administrator to a significant other at home: No Do you presently have visiting nurse or other home services: No Alcohol intake: never Patient Tobacco Use Status: Never used Tobacco e-Cigarette/Vaping Use: Never Used Second Hand Smoke Exposure: No Use of substances other than those prescribed or required for medical reasons: No Have you been hit, kicked, punched, or otherwise hurt by someone within the past year? If so, by whom?: No Are you DNR?: Yes Advance Directives Information Provided: Yes (advised to bring copy DOS) Advance Directives on File: No Recently lost weight without trying: No Eating poorly because of decreased appetite: No Nutrition Risks: Surgical patient >75years Poor oral hygiene: No (full upper & lower denture (doesn't wear lower)) service: No Current occupational status: retired Current occupation: Right Handed Current occupational exposures/hazards: No Cognitive needs: No Hearing needs: No Vision needs: Yes Meds Allergies Allergy/AdvReac Type Severity Reaction Status Date / Time lipitor Allergy Intermediate leg cramps Verified 09/15/22 10:17 simvastatin Allergy Intermediate leg cramps Verified 09/15/22 10:17 meperidine [From DEMEROL] AdvReac Intermediate Vomiting/ passed Verified 09/15/22 10:17 out Active Medications: Current Medications Acetaminophen (Acetaminophen 325 Mg Tablet) 650 mg PO Q6H PRN PRN Reason: Pain, Mild (Pain Scale 1-3) Aspirin (Aspirin 325 Mg Tablet) 325 mg PO BID [facility] Atenolol (Atenolol 25 Mg Tablet) 25 mg PO DAILY CHEO; Protocol Calcium Carbonate/Cholecalciferol (Calcium + Vitamin D 250 Mg Tablet) mg PO DAILY [facility] Celecoxib (Celecoxib 200 Mg Capsule) 200 mg PO BID [facility]O Clonazepam (Clonazepam 1 Mg Tablet) 2 mg PO BEDTIME CHEO Cyanocobalamin (Cyanocobalamin (Vitamin B-12) 1,000 Mcg Tablet) 1,000 mcg PO DAILY [facility] Dextrose (Dextrose 50 % 25 Gm/50 Ml Syringe) 25 gm IVPUSH Q15M PRN; Protocol PRN Reason: per Hypoglycemia Standing Ord. Docusate Sodium (Docusate Sodium 100 Mg Capsule) 100 mg PO BID [facility] Glucose (Glucose Gel 15 Gm Gel..Gram.) 15 gm PO Q15M PRN; Protocol PRN Reason: per Hypoglycemia Standing Ord. Hydromorphone HCl (Hydromorphone Hcl 0.5 Mg/0.5 Ml Syringe) 0.25 mg IVPUSH Q4H PRN; Protocol PRN Reason: Pain, Severe (Pain Scale 7-10) Lactated Ringer's (Lr) 1,000 mls @ 100 mls/hr IVCONT .Q10H CHEO Stop: 09/21/22 10:04 Last Admin: 09/20/22 10:11 Dose: 100 mls/hr Insulin Human Lispro (Insulin Lispro 100 Unit/Ml 3 Ml Vial) 0 unit SUBCUT QIDACHS [facility]; Protocol Multivitamins/Vitamin C (Multivitamin Tablet) 1 tab PO DAILY [facility] Non-Formulary Medication (Rosuvastatin [Crestor]) 20 mg PO BEDTIME [facility] Ondansetron HCl (Ondansetron Hcl 4 Mg/2 Ml Vial) 4 mg IVPUSH Q8H PRN PRN Reason: Nausea and Vomiting Oxycodone HCl (Oxycodone Hcl Immed Release 5 Mg Tablet) 5 mg PO Q4H PRN PRN Reason: Pain, Moderate (Pain Scale 4-6 Last Admin: 09/20/22 14:12 Dose: 5 mg Oxycodone HCl (Oxycodone Hcl Er 10 Mg Tab.Er.12h) 10 mg PO BID [facility] Senna/Docusate Sodium (Sennosides/Docusate Sodium Tablet) 2 tab PO BEDTIME [facility] Sertraline HCl (Sertraline Hcl 100 Mg Tablet) 100 mg PO DAILY [facility] Sodium Chloride (0.9 % Sodium Chloride Flush 3 Ml Syringe) 3 ml IVFLUSH QSHIFT [facility] Last Admin: 09/20/22 17:59 Dose: Not Given Home Medications Medication Instructions Recorded Confirmed Last Taken Type calcium carbonate 250 mg-vitamin 1 tab PO DAILY 08/28/20 09/05/22 09/18/22 History D3 3.125 mcg (125 unit) tablet (Oyster Shell Calcium-Vitamin D3) cholecalciferol (vitamin D3) 125 1 mcg PO DAILY 08/28/20 09/05/22 09/18/22 History mcg (5,000 unit) disintegrating tablet cyanocobalamin (vitamin B-12) 1,000 mcg PO DAILY 08/28/20 09/05/22 09/18/22 History 1,000 mcg capsule multivitamin 1 tab PO DAILY 08/28/20 09/05/22 09/18/22 History sertraline 100 mg tablet 100 mg PO DAILY 04/29/22 09/05/22 09/20/22 History clonazepam 2 mg tablet 2 mg PO BEDTIME 09/06/22 09/06/22 09/18/22 History metformin 500 mg tablet 500 mg PO QPM 09/06/22 09/06/22 09/18/22 History rosuvastatin 20 mg tablet (Crestor) 20 mg PO BEDTIME 09/06/22 09/06/22 09/18/22 History tramadol 50 mg tablet 50 mg PO BID PRN Pain 09/06/22 09/05/22 09/13/22 History Physical Exam Vital Signs and Narrative: Vital Signs: Last Vital Signs Temp 96.8 F 09/20/22 17:04 Pulse 71 09/20/22 17:04 Resp 18 09/20/22 17:04 BP 121/59 L 09/20/22 17:04 Pulse Ox 94 09/20/22 17:04 O2 Del Method 09/20/22 17:04 O2 Flow Rate 2 09/20/22 14:10 BMI result Body Mass Index 30.9 General: AOx3, no acute distress Resp: CTA bilaterally CVS: S1, S2, RRR GI: +BS, NT, no distention Skin: No rash Neuro: Motor grossly intact Extremities: No edema Psych: Appropriate affect Results Labs CBC and Chem 7: 09/20/22 06:28 09/06/22 13:23 Labs: Laboratory Results - last 24 hr 09/20/22 09/20/22 06:05 06:13 POC Glucose 130 H COVID-19 ([facility]) Negative COVID-19 Clin Com See Note Imaging Radiologist's Impressions: Impressions Knee X-Ray 09/20/22 10:30 IMPRESSION: Status post right total knee arthroplasty. Assessment and Plan (1) Non-insulin dependent type 2 diabetes mellitus: Status: Acute (2) Hypertension: Status: Acute Plan Patient is a 77-year-old female with a PMH significant for diabetes, paroxysmal AFib, anxiety, and HLD who was hospitalized s/p right knee TKA. Seen for diabetes and medical management. Svk-qkomsju-uvlvftkgo diabetes Hold metformin while in hospital, resume on discharge Sliding-scale insulin HTN Patient's blood pressure 121/59 Hold lisinopril, creatinine slightly elevated 1.44 on 09/15/2022 Monitor BP, consider restarting lisinopril if patient becomes hypertensive HLD Continue home meds Paroxysmal AFib Continue home meds Anxiety Continue home meds Thank you for allowing me to participate in the care of this patient. Signing off at this time. Please let us know if there are any other questions or concerns about the care of this patient. Time Spent With Patient Time: Total time managing care of this patient today ____ minutes.
[2022-09-20 19:28] LABS: Glucose, Whole Blood 143 mg/dL (60-115)
[2022-09-20] MEDS: clonazePAM 1 MG TABLET 2 MG PO (20:56)
[2022-09-20] MEDS: Docusate Sodium 100 MG CAPSULE PO (20:57)
[2022-09-20] MEDS: Atorvastatin Calcium 80 MG TABLET PO (20:57)
[2022-09-20] MEDS: Sennosides/Docusate Sodium TABLET 2 TAB PO (20:58)
[2022-09-20] MEDS: Celecoxib 200 MG CAPSULE PO (20:58)
[2022-09-20] MEDS: oxyCODONE HCl ER 10 MG TAB.ER.12H PO (20:58)
[2022-09-21] VITALS (7 sets, daily range): BP systolic 100–135; BP diastolic 51–62; PULSE 69–91; RESP 12–20; TEMP 36.4–37.3; O2SAT 92–99
[2022-09-21] MEDS: oxyCODONE HCl Immed Release 5 MG TABLET PO ×2 (03:52→14:48)
[2022-09-21] MEDS: Acetaminophen 325 MG TABLET 650 MG PO (03:52)
[2022-09-21] MEDS: Lactated Ringers 1,000 ML 100 ML IVCONT (05:28)
[2022-09-21 06:03] LABS: MANUAL DIFF FLAG NO
[2022-09-21 06:07] LABS: Basophils Absolute Auto 0.1 X10*3/uL (0.0-0.2); Basophils Percent Auto 0.8 % (0-2); Eosinophils Absolute Auto 0.1 X10*3/uL (0.0-0.4); Hematocrit 25.8 % (37.0-47.0); Hemoglobin 8.2 g/dl (12.0-16.0); Imm Gran Abs Auto 0.04 X10*3/uL (0.00-0.03); Imm Gran Pct Auto 0.6 % (0.0-0.4); Lymphocytes Absolute Auto 1.4 X10*3/uL (1.2-4.9); Lymphocytes Percent Auto 21.5 % (20-40); Mean Corpuscular HGB Conc 31.8 g/dl (31.0-35.0); Mean Corpuscular Hemoglobin 30.7 pg (27.0-33.0); Mean Corpuscular Volume 96.6 fL (80.0-98.0); Mean Platelet Volume 9.7 fL (9.4-12.3); Monocytes Absolute Auto 0.5 X10*3/uL (0.1-1.2); Monocytes Percent Auto 7.3 % (2-11); Neutrophils Absolute Auto 4.5 x10*3/uL (2.0-8.3); Neutrophils Percent Auto 67.8 % (45-73); Platelet Count 225 X10*3/uL (160-400); Red Blood Count 2.67 X10*6/uL (4.20-5.50); Red Cell Distribution Width 13.3 % (11.0-16.0); White Blood Count 6.6 X10*3/uL (4.8-10.8)
[2022-09-21 06:21] LABS: Anion Gap 10 (12-20); Blood Urea Nitrogen 18 mg/dL (9-16); Calcium 8.2 mg/dL (8.4-10.2); Carbon Dioxide 25 mmol/L (22-29); Chloride 103 mmol/L (96-108); Creatinine Clr Calc Pharmacy 36.1; Estimated Glomerular Filt Rate 40; Glucose Fasting 150 mg/dL (60-99); Potassium 4.4 mmol/L (3.3-5.1); Sodium 134 mmol/L (135-145)
[2022-09-21] MEDS: HYDROmorphone HCl 0.5 MG/0.5 ML SYRINGE 0.25 MG IVPUSH ×3 (06:34→19:45)
[2022-09-21 07:34] LABS: Glucose, Whole Blood 152 mg/dL (60-115)
--- NOTE | 2022-09-21 07:36 | P.PNOP_ITS ---
Subjective Subjective Date of Service: 09/21/22 Interval history: POD 1 s/p RT TKA no overnight events resting in chair, tolerating pain well, no concerns denies sob, cp, palpitations Physical Exam Vital Signs: Vital Signs: Last Vital Signs Temp 99.1 F 09/21/22 02:32 Pulse 78 09/21/22 02:32 Resp 15 09/21/22 02:32 BP 102/55 L 09/21/22 02:32 Pulse Ox 92 09/21/22 02:32 O2 Del Method 09/21/22 02:32 O2 Flow Rate 2 09/20/22 14:10 BMI result Body Mass Index 30.9 Const: General: cooperative, healthy appearing and no acute distress Resp: Effort & Inspection: normal respiratory effort and able to speak in complete sentences Cardio: Rate: regular rate Peripheral pulses: Peripheral pulses 2+ throughout GI: Palpation (GI): Soft to palpation Skin: General skin exam: no rashes or lesions noted Extrem: Other: bandage clean dry and intact. [place] intact. No erythema or joint effusion. Calf supple nontender. Neurovascularly intact. Procedures Date of Service Date of Service: 09/21/22 Progress Note: A&P Assessment and plan (1) Status post total right knee replacement: Status: Acute Assessment and Plan: * Continue pain mgmnt * Begin Aspirin for dvt ppx * begin PT for RT TKA * monitor h/h * Dispo planning-Pending PT eval, pain mgmnt Time Spent With Patient Time: Total time managing care of this patient today ____ minutes. Quality Stroke Does the patient have a stroke diagnosis?: No VTE Prior VTE?: No VTE Risk Level:: Surgical - very high VTE Device Contraindication: N/A - Device Ordered VTE Drug Contraindication: N/A - Med Ordered
[2022-09-21] MEDS: Celecoxib 200 MG CAPSULE PO ×2 (08:17→20:12)
[2022-09-21] MEDS: Aspirin 325 MG TABLET PO ×2 (08:17→20:11)
[2022-09-21] MEDS: Docusate Sodium 100 MG CAPSULE PO ×2 (08:21→20:11)
[2022-09-21] MEDS: Insulin Lispro 100 UNIT/ML 3 ML VIAL SUBCUT (08:21)
[2022-09-21] MEDS: Multivitamin TABLET 1 TAB PO (08:21)
[2022-09-21] MEDS: Calcium + Vitamin D 250 MG TABLET PO (08:21)
[2022-09-21] MEDS: Sertraline HCL 100 MG TABLET PO (08:21)
[2022-09-21] MEDS: Cyanocobalamin (Vitamin B-12) 1,000 MCG TABLET 1000 MCG PO (08:21)
[2022-09-21] MEDS: oxyCODONE HCl ER 10 MG TAB.ER.12H PO ×2 (08:21→20:13)
[2022-09-21] MEDS: atenoloL 25 MG TABLET PO (08:21)
--- NOTE | 2022-09-21 09:08 | MHC.CM.PN ---
IMM 09/21/22 DELIVERED AND PLACED IN CHART, EMR REVIEWED, PT ADMITTED S/P RTKA, CM MET W/PT AND ELIZABETH MOORE AT BEDSIDE, PT REPORTS SHE LIVES ALONE, IS INDEP W/ALL CARE,HAS A WALKER AND ACCESSIBLE SENIOR APT, PT DENIES HOME SERVICES HOWEVER SHE DID RECEIVE A CALL FROM [facility] WHO WILL BE DELIVERING 5 [employer] QTDAYS STARTING NEXT WEEK AND REPORTED IT'S THROUGH HER INSURANCE. PT PREFERS HOME W/SERVICES, PT HAS NO PREFERENCES AND IS AGREEABLE TO REFERRAL TO [facility] SHE ONLY WILL NEED HOME PT, PT WILL BE ON ASA FOR ANTICOAGULATION. D/C PLAN: HOME W/NEW [facility] AND FAMILY FOR TRANSPORT.
--- NOTE | 2022-09-21 10:17 | HO.POSTANES ---
Post Anesthesia Evaluation Post Anesthesia Evaluation Vital Signs: Vital Signs Temp Pulse Resp BP Pulse Ox O2 Del Method 09/21/22 07:00 97.9 F 70 18 100/51 L 95 Room Air 09/21/22 02:32 99.1 F 78 15 102/55 L 92 Room Air 09/20/22 23:00 98.0 F 80 16 112/56 L 98 Room Air Anesthesia: Nerve Block and General Mental Status: Awake Pain Control: Satisfactory Nausea/Vomiting: None Hydration: Adequate Anesthesia-Related Issues: No Anes. Related Issues
[2022-09-21 10:59] LABS: Glucose, Whole Blood 119 mg/dL (60-115)
[2022-09-21 16:25] LABS: Glucose, Whole Blood 129 mg/dL (60-115)
[2022-09-21] MEDS: Sennosides/Docusate Sodium TABLET 2 TAB PO (20:11)
[2022-09-21] MEDS: clonazePAM 1 MG TABLET 2 MG PO (20:12)
[2022-09-21] MEDS: Atorvastatin Calcium 80 MG TABLET PO (20:12)
[2022-09-21] MEDS: 0.9 % Sodium Chloride Flush 3 ML SYRINGE IVFLUSH (20:15)
[2022-09-21 20:56] LABS: Glucose, Whole Blood 138 mg/dL (60-115)
[2022-09-22] MEDS: Acetaminophen 325 MG TABLET 650 MG PO (00:01)
[2022-09-22 03:00] VITALS: BP 104/50; PULSE 80; RESP 18; TEMP 36; O2SAT 93
[2022-09-22 06:09] LABS: MANUAL DIFF FLAG NO
[2022-09-22 06:15] LABS: Basophils Absolute Auto 0.1 X10*3/uL (0.0-0.2); Basophils Percent Auto 0.8 % (0-2); Eosinophils Absolute Auto 0.2 X10*3/uL (0.0-0.4); Eosinophils Percent Auto 2.4 % (0-4); Hematocrit 24.6 % (37.0-47.0); Imm Gran Abs Auto 0.06 X10*3/uL (0.00-0.03); Imm Gran Pct Auto 0.7 % (0.0-0.4); Lymphocytes Absolute Auto 1.4 X10*3/uL (1.2-4.9); Lymphocytes Percent Auto 16.3 % (20-40); Mean Corpuscular HGB Conc 32.5 g/dl (31.0-35.0); Mean Corpuscular Hemoglobin 31.1 pg (27.0-33.0); Mean Corpuscular Volume 95.7 fL (80.0-98.0); Mean Platelet Volume 9.9 fL (9.4-12.3); Monocytes Absolute Auto 0.5 X10*3/uL (0.1-1.2); Monocytes Percent Auto 6.2 % (2-11); Neutrophils Absolute Auto 6.3 x10*3/uL (2.0-8.3); Neutrophils Percent Auto 73.6 % (45-73); Platelet Count 212 X10*3/uL (160-400); Red Blood Count 2.57 X10*6/uL (4.20-5.50); Red Cell Distribution Width 13.5 % (11.0-16.0); White Blood Count 8.6 X10*3/uL (4.8-10.8)
[2022-09-22 07:00] VITALS: BP 116/64; PULSE 76; RESP 19; TEMP 36.6; O2SAT 95
[2022-09-22 07:14] LABS: Anion Gap 13 (12-20); Blood Urea Nitrogen 21 mg/dL (9-16); Calcium 8.2 mg/dL (8.4-10.2); Carbon Dioxide 24 mmol/L (22-29); Chloride 104 mmol/L (96-108); Creatinine Clr Calc Pharmacy 32.4; Estimated Glomerular Filt Rate 35; Glucose Fasting 132 mg/dL (60-99); Potassium 4.8 mmol/L (3.3-5.1); Sodium 136 mmol/L (135-145)
[2022-09-22 07:21] LABS: Glucose, Whole Blood 142 mg/dL (60-115)
[2022-09-22] MEDS: atenoloL 25 MG TABLET PO (08:34)
[2022-09-22] MEDS: Aspirin 325 MG TABLET PO (08:35)
[2022-09-22] MEDS: Sertraline HCL 100 MG TABLET PO (08:35)
[2022-09-22] MEDS: Multivitamin TABLET 1 TAB PO (08:35)
[2022-09-22] MEDS: Calcium + Vitamin D 250 MG TABLET PO (08:35)
[2022-09-22] MEDS: Cyanocobalamin (Vitamin B-12) 1,000 MCG TABLET 1000 MCG PO (08:35)
[2022-09-22] MEDS: Docusate Sodium 100 MG CAPSULE PO (08:35)
[2022-09-22] MEDS: Celecoxib 200 MG CAPSULE PO (08:36)
[2022-09-22] MEDS: oxyCODONE HCl ER 10 MG TAB.ER.12H PO (08:36)
[2022-09-22] MEDS: 0.9 % Sodium Chloride Flush 3 ML SYRINGE IVFLUSH (08:37)
[2022-09-22 09:41] VITALS: PULSE 76; O2SAT 95
[2022-09-22 10:51] LABS: Glucose, Whole Blood 147 mg/dL (60-115)
--- NOTE | 2022-09-22 11:30 | MHC.CM.PN ---
PT MEDICALLY CLEARED FOR D/C HOME W/NEW [facility] FOR HOME PT AND FAMILY FOR TRANSPORT
[2022-09-22] MEDS: oxyCODONE HCl Immed Release 5 MG TABLET PO ×2 (12:40)
--- NOTE | 2022-10-03 21:28 | P.DS_ITS ---
DS: Providers Provider Date of Service: 09/22/22 Date of admission: 09/20/22 05:53 Primary care physician: Alexis Melara MD Consults: 09/20/22 16:30 Consult to Hospitalist Routine Consulting Provider: Hospitalist Reason For Exam: Diabetic DS: Diagnosis Discharge Diagnosis (1) Status post total right knee replacement: Status: Acute DS: Summary Hospital Course Hospital Course: The patient underwent a successful right total knee arthroplasty, was transferred to PACU and then to the floor to recover. During their stay, their vitals were stable, afebrile at 98.0 . Labs were unremarkable, H/H 8.0/24.6. POD 1 she was started on ASA for DVT ppx,she also received PT services twice a day. Prior to discharge, dressing was change, incision clean dry and intact, new Aquacel dressing applied and the plan was to be discharged home with vna. Time Spent with Patient Time attestation: Total time managing care of this patient today ____ minutes. Discharge coordination time: Less than 30 minutes Quality: Safe Use of Opioids Does Pt have an Active Cancer Diagnosis on the Problem List?: No Quality: Stroke Does the patient have a stroke diagnosis?: No Physical Exam Vital Signs: Vital Signs: Last Vital Signs Temp 98 F 09/22/22 07:00 Pulse 76 09/22/22 09:41 Resp 19 09/22/22 07:00 BP 116/64 09/22/22 07:00 Pulse Ox 95 09/22/22 09:41 O2 Del Method 09/22/22 07:00 O2 Flow Rate 2 09/20/22 14:10 BMI result Body Mass Index 30.9 Const: General: cooperative, healthy appearing and no acute distress Resp: Effort & Inspection: normal respiratory effort and able to speak in complete sentences Cardio: Rate: regular rate Peripheral pulses: Peripheral pulses 2+ throughout GI: Palpation (GI): Soft to palpation Skin: General skin exam: no rashes or lesions noted Extrem: Other: bandage clean dry and intact. [place] intact. No erythema or joint effusion. Calf supple nontender. Neurovascularly intact. DS: Data Data Completed and Pending Completed studies during hospitalization [Text1]: Pending at discharge 09/20/22 08:55 Surgical [PTH] Routine Procedures Replacement of Right Knee Joint with Synthetic Substitute, Uncemented, Open Approach (09/20/22) Discharge Plan Discharge Anticipated Discharge Date/Time: 09/22/22 10:55 Patient Disposition: Home Health Service Discharge Diagnosis: RT TKA Referrals: [facility] [Outside] - 1 Day (Home Physical Therapy) Mary Koch PA-C [Physician Solvent Recoverer] - 2 Weeks (10/06/22 12:30 [facility] Mary Koch PA-C) Po,Alexis Pinto MD [Primary Care Provider] - 1 Week Discharge Medications: New celecoxib 200 mg Capsule 200 mg PO BID 30 Days Qty: 60 1RF acetaminophen 325 mg Tablet 650 mg PO Q6H PRN (Reason: Pain, Mild (Pain Scale 1-3)) 30 Days Qty: 240 0RF aspirin 325 mg Tablet 325 mg PO BID 42 Days Qty: 84 0RF docusate sodium 100 mg Capsule 100 mg PO BID 7 Days Qty: 14 0RF Continued lisinopril 10 mg tablet 10 mg PO DAILY 90 Days Qty: 90 2RF metformin 500 mg tablet 500 mg PO QPM tramadol 50 mg tablet 50 mg PO BID PRN (Reason: Pain) clonazepam 2 mg tablet 2 mg PO BEDTIME rosuvastatin [Crestor] 20 mg tablet 20 mg PO BEDTIME cholecalciferol (vitamin D3) 125 mcg (5,000 unit) tablet,disintegrating 1 mcg PO DAILY calcium carbonate-vitamin D3 [Oyster Shell Calcium-Vit D3] 250-125 mg-unit tablet 1 tab PO DAILY cyanocobalamin (vitamin B-12) 1,000 mcg capsule 1,000 mcg PO DAILY multivitamin Tablet 1 tab PO DAILY atenolol 25 mg tablet 25 mg PO DAILY Qty: 90 3RF sertraline 100 mg tablet 100 mg PO DAILY sennosides-docusate sodium [Senna-S] 8.6-50 mg tablet 2 tab-cap PO BEDTIME 30 Days Qty: 60 2RF No Action (DME) Bedside commode See Rx Instructions .ROUTE .MEDSUPPLY Qty: 1 0RF Rx Instructions: Z96.651 - Presence of right artificial knee joint M17.11 - Unilateral primary osteoarthritis, right knee oxycodone 5 mg tablet 5 mg PO Q4H PRN (Reason: Pain, Moderate (Pain Scale 4-6) 7 Days Qty: 42 0RF Rx Instructions: Partial Fill upon patient request. Discharge Orders: Discharge Order (Routine); Ordered 09/22/22 Ordered By: Mary Koch Diet: Regular diet Activity on Discharge: Use cane or walker Stand Alone Forms: Patient Portal Discharge page Care Plan Goals: Restore function of joint Health Concerns: none Plan of Treatment: Physical Therapy Pain management DVT prophylaxis Assessment: Physical Therapy for Total knee arthroplasty: WBAT, gait training, ROM 0-12, quad strength * Limit stair climbing * No showering, no tub bath-keep dressing clean, dry and intact * No driving x6 weeks * Continue Aspirin twice a day x 6 weeks * Follow up with [facility] in 2 weeks: Discharge Date/Time: 09/22/22 13:00
== END 2022-09-22 13:00 | disposition home health service (06) | DRG 470 ==
LOC: HO.SSSA 06:01 → HO.S3 16:46
PROVIDERS: Physician Assistant; Admitting Provider Orthopaedic Surgery; PCP Internal Medicine; Visit Provider Orthopaedic Surgery
PROC: 0SRC0JA Replacement of Right Knee Joint with Synthetic Substitute, Uncemented, Open Approach (ICD-10-PCS; CPT 27447; principal; 2022-09-20 07:30)
DX: M17.11 Unilateral primary osteoarthritis, right knee (principal); E78.00 Pure hypercholesterolemia, unspecified; F43.10 Post-traumatic stress disorder, unspecified; E11.9 Type 2 diabetes mellitus without complications; E78.5 Hyperlipidemia, unspecified; I48.0 Paroxysmal atrial fibrillation; F41.9 Anxiety disorder, unspecified; Z20.822 Contact with and (suspected) exposure to COVID-19; Z88.8 Allergy status to other drugs, medicaments and biological substances; Z79.82 Long term (current) use of aspirin; Z79.84 Long term (current) use of oral hypoglycemic drugs; Z79.899 Other long term (current) drug therapy
CPT/HCPCS: 36415; 73560; 80048; 82947; 85014; 85018; 85025; 86850; 86900; 86901; 87635; 87640; 87641; 88305; 88311; 93005; 97110; 97116; 97161; C1776; J0131; J0690; J1100; J1170; J2250; J2370; J2405; J2795; J3010

== ENCOUNTER → 2022-10-06 12:15 | Outpatient (BNVA) | payer MEDICARE, SELFPAY | PROVIDERS: PCP Internal Medicine; Visit Provider Physician Assistant | DX: Z13.89 Encounter for screening for other disorder (principal) ==

== ENCOUNTER → 2022-11-03 10:36 | Outpatient (BNVA) | payer MEDICARE, SELFPAY | PROVIDERS: PCP Internal Medicine; Visit Provider Physician Assistant | DX: Z13.89 Encounter for screening for other disorder (principal) ==

== ENCOUNTER 2022-11-25 11:00 | Outpatient (RCR) | payer MEDICARE, SELFPAY ==
--- NOTE | 2022-10-24 13:48 | MHC.PT.EP ---
[facility] [place] Office [place] Office [place] Office [address] Kashif Barth [address] [phone] F: [phone] F: [phone] F: [phone] F: [phone] Physical Therapy Plan of Care Date of Evaluation: Date of Surgery: 09/20/20 Diagnosis: R TKA Assessment: Is a 77 y/o female referred to PT for eval and treat s/p R TKA performed on 09/20/22 Pt resulting in decreased tolerance for standing, walking, negotiating curbs and stairs, as well as performing squatting activities and heavy HH chores secondary to decreased R knee ROM, decreased hip and R knee strength, gait abnormality, surgical healing process, and pain. Pt is deemed an appropriate candidate to receive skilled PT services to address their physical impairments in order to improve their functional ability. Frequency and Duration: The patient will be seen 2 x / wk x 8 wks. Short Term Goals: Initiate HEP. Pt will achieve full knee extension; initial: 10 deg. Pt will achieve at least 125 degrees R knee fleixon; initial: 100. Group Worker Goals: I with home program. Pt will be able to negotiate 1 fl of stairs with reciprocal pattern. Pt will be able to walk 2 blocks with at most a little bit of difficulty. Improve R knee extension MMT by at least 1/2 MMT grade. Treatment Plan: Modalities to reduce pain, spasms and effusion. Manual therapy to restore motion and function. Therapeutic exercise to improve strength and flexibility. Neuromuscular re-education for posture and balance. Therapeutic activities to return to functional activities of daily living. Electronically signed by: José Miguel Jain PT Please sign and return to therapist. Thank you for your referral.
--- NOTE | 2023-01-31 10:37 | MHC.PT.DC ---
[facility] [place] Office [place] Office [place] Office [address] Kashif Barth [address] [phone] F: [phone] F: [phone] F: [phone] F: [phone] Physical Therapy Discharge Report Diagnosis: R TKA Date of Surgery: 09/20/20 Date of Evaluation: 10/24/22 Date of Discharge: 01/31/23 Treatments to Date: 6 Cancellations to Date: No Shows to Date: Discharge Status: Improved Function Patient Elected to Stop Discharge Summary: From lat treatment note 11/25/22: ROM: 3-123 today; Reports she has been nervous on curbs. Reports pain is improving though persists with tightness. Good burak for activities. Re ed on stairs NV. encouraging 4 steps at home; Pt may DC NV d/t high cost of healthcare. She is encouraged to speak with HCP financial office. Electronically signed by: José Miguel Jain PT. Please sign and return to therapist. Thank you for your referral.
== END 2023-01-31 10:36 | disposition home or self-care (01) ==
LOC: HO.PTCHIC 11:00
PROVIDERS: Visit Provider Orthopaedic Surgery
DX: Z96.651 Presence of right artificial knee joint (principal)
CPT/HCPCS: 97110; 97116; 97140; 97161

== ENCOUNTER 2022-12-15 12:10 | Outpatient (REF) | payer MEDICARE, SELFPAY ==
--- NOTE | ~2022-12-15 | XR_ITS ---
EXAMINATION: Knee x-ray CLINICAL INFORMATION: Post knee replacement COMPARISON: Previous exam 09/20/2022 TECHNIQUE: Standing AP view of both knees and lateral and sunrise view of the right knee FINDINGS: There is a 3 component right knee replacement in satisfactory position. No fracture, dislocation or x-ray evidence of loosening. Joint effusion. Standing AP view of the left knee demonstrates medial femoral tibial joint space narrowing. XR/XR knee RT 2V IMPRESSION: Satisfactory appearance of right knee replacement. Joint effusion.
--- NOTE | ~2022-12-15 | XR_ITS ---
EXAMINATION: Knee x-ray CLINICAL INFORMATION: Post knee replacement COMPARISON: Previous exam 09/20/2022 TECHNIQUE: Standing AP view of both knees and lateral and sunrise view of the right knee FINDINGS: There is a 3 component right knee replacement in satisfactory position. No fracture, dislocation or x-ray evidence of loosening. Joint effusion. Standing AP view of the left knee demonstrates medial femoral tibial joint space narrowing. XR/XR knee standing BI IMPRESSION: Satisfactory appearance of right knee replacement. Joint effusion.
== END 2022-12-15 12:11 | disposition home or self-care (01) ==
LOC: HO.HOSX 12:10
PROVIDERS: Visit Provider Orthopaedic Surgery
DX: M25.561 Pain in right knee (principal); Z96.651 Presence of right artificial knee joint; Z47.1 Aftercare following joint replacement surgery
CPT/HCPCS: 73560; 73565

== ENCOUNTER 2022-12-22 09:06 | Outpatient (REF) | payer MEDICARE, SELFPAY ==
[2022-12-22 11:33] LABS: MANUAL DIFF FLAG NO
[2022-12-22 11:46] LABS: Basophils Absolute Auto 0.1 X10*3/uL (0.0-0.2); Basophils Percent Auto 1.2 % (0-2); Eosinophils Absolute Auto 0.1 X10*3/uL (0.0-0.4); Eosinophils Percent Auto 1.9 % (0-4); Hematocrit 33.5 % (37.0-47.0); Hemoglobin 10.8 g/dl (12.0-16.0); Imm Gran Abs Auto 0.03 X10*3/uL (0.00-0.03); Imm Gran Pct Auto 0.4 % (0.0-0.4); Immature Retic Fraction 11.6 % (3.0-15.9); Lymphocytes Absolute Auto 1.6 X10*3/uL (1.2-4.9); Lymphocytes Percent Auto 23.1 % (20-40); Mean Corpuscular HGB Conc 32.2 g/dl (31.0-35.0); Mean Corpuscular Hemoglobin 31.1 pg (27.0-33.0); Mean Corpuscular Volume 96.5 fL (80.0-98.0); Mean Platelet Volume 10.3 fL (9.4-12.3); Monocytes Absolute Auto 0.4 X10*3/uL (0.1-1.2); Monocytes Percent Auto 6.4 % (2-11); Neutrophils Absolute Auto 4.6 x10*3/uL (2.0-8.3); Platelet Count 287 X10*3/uL (160-400); Red Blood Count 3.47 X10*6/uL (4.20-5.50); Red Cell Distribution Width 13.4 % (11.0-16.0); Retic HGB Equivalent 34.9 pg (30.0-35.0); Reticulocyte Percent 1.3 % (0.5-1.8); Reticulocytes Absolute 0.046 X10*6/uL (0.026-0.095); White Blood Count 6.9 X10*3/uL (4.8-10.8)
[2022-12-22 12:07] LABS: Alanine Aminotransferase 7 U/L (0-31); Albumin Level 3.9 g/dL (3.5-5.0); Alkaline Phosphatase 99 U/L (39-117); Anion Gap 13 (12-20); Aspartate Amino Transferase 12 U/L (5-31); Bilirubin Total 0.4 mg/dL (0.0-1.0); Blood Urea Nitrogen 15 mg/dL (9-16); Calcium 8.8 mg/dL (8.4-10.2); Carbon Dioxide 28 mmol/L (22-29); Chloride 106 mmol/L (96-108); Cholesterol 185 mg/dL; Estimated Glomerular Filt Rate 44; Glucose Random 108 mg/dL (60-115); HDL Cholesterol 39 mg/dL; Iron 56 mcg/dL (30-160); LDL Cholesterol Calculated 124 mg/dl; Percent Iron Saturation 23 % (15-50); Potassium 4.8 mmol/L (3.3-5.1); Sodium 142 mmol/L (135-145); Total Iron Binding Capacity 248 mcg/dL (228-428); Total Protein 6.3 g/dL (6.5-8.0); Triglycerides 114 mg/dL; Unsaturated Iron Binding 192 ug/dL
[2022-12-22 12:24] LABS: Creatinine Urine 136.38 mg/dL
[2022-12-22 12:39] LABS: B Type Natriuretic Peptide 96 pg/mL (<100); Ferritin 33 ng/mL (10-250); Folate 7.1 ng/mL (> or = 4.0); Vitamin B12 362 pg/mL (200-900)
== END 2022-12-22 09:07 | disposition home or self-care (01) ==
LOC: HO.HMGCLDS 09:06
PROVIDERS: PCP Internal Medicine; Visit Provider Internal Medicine
DX: E11.65 Type 2 diabetes mellitus with hyperglycemia (principal); N28.9 Disorder of kidney and ureter, unspecified; E78.00 Pure hypercholesterolemia, unspecified; D64.9 Anemia, unspecified
CPT/HCPCS: 36415; 80053; 80061; 82607; 82728; 82746; 83540; 83880; 85025; 85045

== ENCOUNTER 2023-02-18 09:02 | Outpatient (REF) | payer MEDICARE, SELFPAY ==
--- NOTE | ~2023-02-18 | MM_ITS ---
EXAMINATION: MM SCREENING DIGITAL BREAST TOMOSYNTHESIS, BILATERAL CLINICAL INFORMATION: Screening. Asymptomatic. Family history breast cancer, sister. The lifetime risk of breast cancer based on the Tyrer-Cuzick Model is 3%. COMPARISON: Mammography: 02/02/2022, 01/09/2021, 11/01/2019, 08/06/2018 TECHNIQUE: Digital breast tomosynthesis is performed in both the craniocaudal and mediolateral oblique views along with computer-aided detection (CAD). Synthesized 2D images are generated from the tomosynthesis. FINDINGS: There are scattered areas of fibroglandular density (ACR BI-RADS breast composition Category b). Breast tissue composition borders on predominantly fatty. Background stromal and fibroglandular densities are stable. There is no developing density or architectural abnormality. Again, there are scattered bilateral vascular calcifications. The axilla and skin contours are unremarkable. Right breast has some increased loosely grouped calcifications anterior upper outer quadrant likely combination of vascular and ductal secretory type. Patient will be recalled for additional magnification views to fully characterize. MM/MM tomosynthesis screening BI IMPRESSION: Right: -Increased grouped probable benign calcifications anterior upper outer breast, likely combination of benign vascular and ductal secretory types. Left: -No mammographic evidence of malignancy. ASSESSMENT: BI-RADS 0: Incomplete - Need Additional Imaging Evaluation RECOMMENDATION: 1. Additional views right breast: magnification CC, magnification ML. 2. Radiology department staff will contact the patient for additional imaging. This patient's information was entered into a reminder system with a target due date for their next mammogram.
== END 2023-02-18 09:03 | disposition home or self-care (01) ==
LOC: HO.MAMMO 09:02
PROVIDERS: PCP Internal Medicine; Visit Provider Internal Medicine
DX: Z12.31 Encounter for screening mammogram for malignant neoplasm of breast (principal)
CPT/HCPCS: 77063; 77067

== ENCOUNTER 2023-03-07 14:06 | Outpatient (REF) | payer MEDICARE, SELFPAY ==
--- NOTE | ~2023-03-07 | MM_ITS ---
EXAMINATION: MM DIAGNOSTIC DIGITAL MAMMOGRAPHY, RIGHT CLINICAL INFORMATION: Recall from screening for question of increased grouped calcifications anterior upper outer right breast. Family history breast cancer, sister. COMPARISON: Prior mammography exams including most recent 02/18/2023. TECHNIQUE: Digital right mammography is performed in the following views: Magnification CC, magnification ML. FINDINGS: There are scattered areas of fibroglandular density (ACR BI-RADS breast composition Category b). The additional magnification views show a few scattered benign anterior right breast similar to prior studies. No significant changes. Results are discussed with the patient at time of visit. MM/MM added views RT IMPRESSION: No significant changes from prior studies. ASSESSMENT: BI-RADS 2: Benign RECOMMENDATION: Routine annual mammography screening. This patient's information was entered into a reminder system with a target due date for their next mammogram.
== END 2023-03-07 14:07 | disposition home or self-care (01) ==
LOC: HO.MAMMO 14:06
PROVIDERS: PCP Internal Medicine; Visit Provider Internal Medicine
DX: R92.1 Mammographic calcification found on diagnostic imaging of breast (principal)
CPT/HCPCS: 77065

== ENCOUNTER 2023-05-03 10:12 | Outpatient (AMB) | payer MEDICARE, SELFPAY ==
[2023-05-03 10:15] VITALS: BP 142/80; PULSE 59; O2SAT 95; BMI 30.1
--- NOTE | 2023-05-03 10:15 | A.OFFPC_ITS ---
Vital Signs 05/03/23 10:15 Height 5 ft 3 in Weight 170 lb BMI 30.1 BP 142/80 H Blood Pressure Location Lt brachial Position Sitting Pulse 59 Pulse Source Pulse Oximeter Pulse Oximetry (%) 95 Oxygen Delivery Method Room Air Intake Visit Reasons: Annual Exam Allergies atorvastatin [From Lipitor] Allergy (Intermediate, Verified 05/03/23 10:17) Leg cramps simvastatin Allergy (Intermediate, Verified 05/03/23 10:17) leg cramps meperidine [From Demerol] Adverse Reaction (Intermediate, Verified 05/03/23 10:17) Vomiting, passed out celecoxib [From Celebrex] Adverse Reaction (Mild, Verified 05/03/23 10:17) Over active bladder Medication List - Last Reconciled 05/03/23 by Alexis Melara MD acetaminophen 650 mg (2 x 325 mg) PO Q6H PRN 30 days atenolol 25 mg PO DAILY [Bedside commode Z96.651 - Presence of right artificial knee joint M17.11 - Unilateral primary osteoarthritis, right knee] calcium carbonate-vitamin D3 250 mg-3.125 mcg (125 unit) (Oyster Shell Calcium- Vitamin D3) 1 tab PO DAILY cholecalciferol (vitamin D3) 1 mcg PO DAILY clonazepam 2 mg PO BEDTIME 90 days cyanocobalamin (vitamin B-12) 1,000 mcg PO DAILY lisinopril 10 mg PO DAILY 90 days metformin 500 mg PO QPM multivitamin 1 tab PO DAILY rosuvastatin (Crestor) 20 mg PO BEDTIME sertraline 150 mg (1.5 x 100 mg) PO DAILY 90 days tramadol 50 mg PO BID PRN Tobacco use date assessed: 02/06/23 Fall risk assessment: No Falls in past year Last assessed Fall Risk: 05/03/23 Dental Screening Dental Screen Date: 05/03/23 Did you have a dental visit in the last 12 months?: No Did you have a dental problem in the last 6 months where you did not have access to dental care?: No Was dental information given to patient?: No HPI Annual Exam HPI Details 77-year-old overweight female with diabetes mellitus hypercholesterolemia generalized anxiety disorder chronic anemia osteopenia coming in for annual well visit. Patient was last seen in January 2023. Blood work was requested at the time colonoscopy for tubular adenoma 2011, mammogram is up-to-date bone density later this year. R knee still pain and off [facility] Medical History (Updated 05/03/23 @ 10:56 by Alexis Melara MD) Anemia Annual physical exam Annual physical exam Anxiety and depression Bilateral hand numbness Bladder prolapse Breast cancer screening by mammogram Cervical compression fracture Chronic renal insufficiency Fatigue Foul smelling urine Generalized anxiety disorder Hypercholesterolemia Hypertension IBS (irritable bowel syndrome) Internal derangement of right knee Knee effusion, right Medicare annual wellness visit, subsequent Non-insulin dependent type 2 diabetes mellitus Obesity (BMI 30-39.9) Osteoarthritis Osteoarthritis of right knee Osteoarthritis, knee Osteopenia Osteoporosis 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 Sister Heart abnormality Social History Housing: Apartment Are you a primary career information specialist to a significant other at home: No Do you presently have visiting nurse or other home services: No Alcohol intake: never Patient Tobacco Use Status: Never used Tobacco e-Cigarette/Vaping Use: Never Used Second Hand Smoke Exposure: No service: No Current occupational status: retired Current occupation: Right Handed Current occupational exposures/hazards: No Cognitive needs: No Hearing needs: No Vision needs: Yes Questionnaire PHQ-9 Over the last 2 weeks, how often have you been bothered by any of the following problems? 1. Little interest or pleasure in doing things: not at all 2. Feeling down, depressed, or hopeless: not at all 3. Trouble falling or staying asleep, or sleeping too much: not at all 4. Feeling tired or having little energy: not at all 5. Poor appetite or overeating: not at all 6. Feeling bad about yourself - or that you are a failure or have let yourself or your family down: not at all 7. Trouble concentrating on things, such as reading the newspaper or watching television: not at all 8. Moving or speaking so slowly that other people could have noticed. Or the opposite - being so fidgety or restless that you have been moving around a lot more than usual: not at all 9. Thoughts that you would be better off or of hurting yourself in some way: not at all Total score: 0 Depression Screening Interpretation: Negative Source: Developed by Drs. Yuriy Noe, Lor Duncan, Almas Bailey and colleagues, with an educational kit from [employer]. Thrive Questionnaire Date Thrive assessed: 11/03/22 AUDIT C Alcohol Use Questionnaire (AUDIT-C) 1. How often do you have a drink containing alcohol?: Never 3. How often do you have six or more drinks on one occasion?: Never Total Score: 0 VIVIAN-7 AMB Questionnaire VIVIAN-7 Date VIVIAN - 7 assessed: 11/03/22 Source: Developed by Drs. Yuriy Noe, Lor Duncan, Almas Bailey and colleagues, with an educational kit from [employer]. Review of Systems Const Denies poor appetite and Denies weakness Eyes Denies no additional complaints ENT Reports Normal hearing present, Denies dizziness, Denies nasal congestion, Denies tinnitus and Denies sore throat Card Denies chest pain, Denies syncope, Denies rapid heart rate and Denies dyspnea Resp Denies cough and Denies dyspnea GI Denies change in stool character, Reports constipation, Denies diarrhea, Denies nausea and Denies vomiting Denies urinary frequency, Denies difficulty voiding and Denies dysuria Neuro Reports Normal hearing present, Denies confusion, Denies dizziness, Denies syncope and Denies weakness Psych Denies confusion Physical exam (Primary Care) Vital Signs: Last Vital Signs Pulse 59 05/03/23 10:15 BP 142/80 H 05/03/23 10:15 Pulse Ox 95 05/03/23 10:15 Oxygen Delivery Method Room Air 05/03/23 10:15 BMI result Body Mass Index 30.1 Tobacco/Smoking Status: Tobacco use Status Tobacco use date assessed 02/06/23 05/03/23 10:23 Patient Tobacco Use Status Never used Tobacco 05/03/23 10:23 e-Cigarette/Vaping Use Never Used 05/03/23 10:23 PHQ-9: PHQ-9 Score PHQ-9: Total score 0 05/03/23 10:23 Depression Screening Interpretation: Negative Thrive Assessment: Date of Thrive Assessment Date Thrive assessed 11/03/22 05/03/23 10:23 Const General: No confusion Orientation/consciousness: No confusion HENMT Head: Yes normocephalic Ears: external ears normal and TM's normal bilaterally Face and sinus: Yes normal facial exam Mouth: moist mucous membranes Throat: Yes tonsils normal Eyes Conjunctivae: conjunctivae normal Pupils: Equal, round and reactive pupils present and Pupil accommodation reflex normal Direct Ophthalmoscopy: normal light reflex Neck Neck: No lymphadenopathy Thyroid: Thyroid normal Chest Chest palpation & inspection: normal inspection of the chest Resp Effort & Inspection: normal respiratory effort and no audible wheezes Auscultation: clear to auscultation bilaterally, no crackles, no wheezes and lung sounds not diminished Cardio Rate: regular rate Rhythm: regular rhythm Peripheral pulses: radial pulses present and dorsalis pedis present GI Other: decline rectal , pedal pulse and pin prick good Palpation (GI): no masses Auscultation: normal bowel sounds and normoactive bowel sounds Rectal Exam - Female: deferred Skin General skin exam: no rashes or lesions noted Rashes: no rashes Neuro General: No confusion Cranial nerves: Yes Equal, round and reactive pupils present and Yes Normal hearing present Cognition (Neuro): normal cognition Gait exam (Neuro): Normal gait present Motor exam (neuro): 5/5 motor strength present throughout Deep tendon reflexes (DTR's): Right brachioradialis reflex intensity grade: 2+, Left brachioradialis reflex intensity grade: 2+, Right patellar reflex intensity grade: 2+ and Left patellar reflex intensity grade: 2+ Extrem General: No edema Results AMB Hemoglobin A1c AMB Hemoglobin A1c 5.8 % Last Edit by Sharron Siddiqui CMA on 05/03/23 10 :44 Assessment and Plan Assessment & Plan (1) Anemia: Code(s): D64.9 - Anemia, unspecified Plan: Chronic and continue to monitor (2) Osteopenia: Comment: May 2021 bone density. Code(s): M85.80 - Other specified disorders of bone density and structure, unspecified site Plan: Bone density reminded later this year patient takes calcium and vitamin-D (3) Colon cancer screening: Comment: April 2012 last colonoscopy Code(s): Z12.11 - Encounter for screening for malignant neoplasm of colon Plan: Patient declined referral for colonoscopy (4) Type 2 diabetes mellitus with hyperglycemia: Comment: borderline per patient-taking Metformin once/day-does not check at home-last A1C-5.8% 05/2022 Code(s): E11.65 - Type 2 diabetes mellitus with hyperglycemia Plan: Decrease the amount of carbohydrate intake, pasta, bread, rice and potatoes are all sugar and that is aside from all the sweet stuff, remember that fruits are good but they are Sweet also. Hemoglobin A1c goal of less than 7.0 patient takes metformin 500 mg once a day (5) Hypercholesterolemia: Code(s): E78.00 - Pure hypercholesterolemia, unspecified Plan: Avoid fried foods, chicken skin, eggs, butter margarine, pastries and meat. Be it pork or beef they have a lot of cholesterol LDL goal of less than 100. Patient takes rosuvastatin 20 mg once a day (6) Colonoscopy refused: Code(s): Z53.20 - Procedure and treatment not carried out because of patient's decision for unspecified reasons (7) Generalized anxiety disorder: Comment: Declined counseling referral April 2022 Code(s): F41.1 - Generalized anxiety disorder Plan: Continue with sertraline (8) Annual physical exam: Code(s): Z00.00 - Encounter for general adult medical examination without abnormal findings (9) Age-related osteoporosis without current pathological fracture: Code(s): M81.0 - Age-related osteoporosis without current pathological fracture Orders: Orders Vitamin B12 and Folate Today D64.9 - Anemia, unspecified Comprehensive Met. Panel Today E11.65 - Type 2 diabetes mellitus with hyperglycemia Ferritin Today D64.9 - Anemia, unspecified IRON PROFILE Today D64.9 - Anemia, unspecified Free T4 (Free Thyroxine) Today E11.65 - Type 2 diabetes mellitus with hyperglycemia Thyroid Stimulating Hormone Today E11.65 - Type 2 diabetes mellitus with hyperglycemia Creatinine Urine Today E11.65 - Type 2 diabetes mellitus with hyperglycemia Microalbumin, Random (w Creat) Today E11.65 - Type 2 diabetes mellitus with hyperglycemia Complete Blood Count Auto Diff Today D64.9 - Anemia, unspecified Reticulocyte Count Today D64.9 - Anemia, unspecified AMB Hemoglobin A1c Today Z13.9 - Encounter for screening, unspecified XR DEXA axial skeleton Today M81.0 - Age-related osteoporosis without current pathological fracture Medications: Refilled clonazepam 2 mg PO BEDTIME 90 tabs 1RF 90 days E78.00 - Pure hypercholesterolemia, unspecified Coding Level of Care Code Est Pt Prev Care >65y(86196) Diagnoses Anemia D64.9 Osteopenia M85.80 Colon cancer screening Z12.11 Type 2 diabetes mellitus with hyperglycemia E11.65 Hypercholesterolemia E78.00 Colonoscopy refused Z53.20 Generalized anxiety disorder F41.1 Annual physical exam Z00.00 Age-related osteoporosis without current pathological fracture M81.0
== END 2023-05-03 10:59 | disposition home or self-care (01) ==
PROVIDERS: PCP Internal Medicine; Visit Provider Internal Medicine
DX: Z00.00 Encounter for general adult medical examination without abnormal findings (principal); D64.9 Anemia, unspecified; E11.65 Type 2 diabetes mellitus with hyperglycemia; M85.80 Other specified disorders of bone density and structure, unspecified site; E78.00 Pure hypercholesterolemia, unspecified; Z53.20 Procedure and treatment not carried out because of patient's decision for unspecified reasons; F41.1 Generalized anxiety disorder; M81.0 Age-related osteoporosis without current pathological fracture
CPT/HCPCS: 83036; 99397

== ENCOUNTER 2023-05-25 09:11 | Outpatient (REF) | payer MEDICARE, SELFPAY ==
--- NOTE | ~2023-05-25 | MM_ITS ---
EXAMINATION: BONE DENSITOMETRY CLINICAL INDICATION: Age-related osteoporosis without current pathological fracture. COMPARISON: Previous BD dated 05/21/2021 and baseline BD dated 07/10/2009. TECHNIQUE: Using a [employer] DXA System (software version: 13.1) manufactured by [employer], dual-energy x-ray absorptiometry was performed of the lumbar spine and left hip. The images are of good technical quality. Summary results are attached. FINDINGS: LEFT FEMUR, NECK: Current: BMD 0.806 g/cm2, Z-score 0.1, T-score -1.7, osteopenia. Prior: BMD 0.773 g/cm2. Baseline: BMD 0.865 g/cm2. LEFT FEMUR, TOTAL: Current: BMD 0.862 g/cm2, Z-score 0.4, T-score -1.2, osteopenia, 0.6% increase from previous, 6.6% decrease from baseline (<5% change is not significant). Prior: BMD 0.857 g/cm2. Baseline: BMD 0.923 g/cm2. AP SPINE L1-L4: Current: BMD 1.027 g/cm2, Z-score 0.0, T-score -1.3, osteopenia, 5.0% decrease from previous, 7.5% decrease from baseline (<5% change is not significant). Prior: BMD 1.081 g/cm2. Baseline: BMD 1.110 g/cm2. IDENTIFIED RISK FACTORS: Low calcium intake, history of fracture (adult). Early menopause, secondary osteoporosis, hysterectomy, bilateral oophorectomy. HISTORY OF FRACTURE: Spine. Other. MEDICATIONS: Calcium supplements or multivitamin, vitamin D. MM/XR DEXA axial skeleton IMPRESSION: 1. DIAGNOSIS: Osteopenia based on the lowest T-score value of -1.7 in the femoral neck applying World Health Organization criteria. 2. 10-YEAR FRACTURE RISK PREDICTION, FRAX: Major osteoporotic fracture (clinical spine, forearm, hip or shoulder) 18.7%. Hip fracture 4.0%. 3. Treatment Recommendations: NOF guidelines recommend consideration for treatment in postmenopausal women and men age 50 and older presenting with the following: -A hip or vertebral (clinical or morphometric) fracture. -T-score less than or equal to -2.5 at the femoral neck or spine after appropriate evaluation to exclude secondary causes. -Low bone mass at the hip or spine and a 10-year fracture probability by FRAX of greater than or equal to 3% for hip fracture or greater than or equal to 20% for major osteoporotic fracture based on the [place] adapted WHO algorithm. 4. Other Recommendations: All treatment decisions require clinical judgment and consideration of individual patient factors, including patient preferences, comorbidities, previous drug use, risk factors not captured in the FRAX model (e.g. frailty, falls, vitamin D deficiency, increased bone turnover, interval significant decline in bone density) and possible under or overestimation of fracture risk by FRAX. Additional medical evaluation for secondary cause of low bone mineral density may be appropriate. FUTURE SCAN RECOMMENDATION: People with diagnosed cases of osteoporosis or at high risk for fracture should have regular bone mineral density tests. For patients eligible for Medicare, routine testing is allowed once every 2 years. The testing frequency can be increased to one year for patients who have rapidly progressing disease, those who are receiving or discontinuing medical therapy to restore bone mass, or have additional risk factors.
== END 2023-05-25 09:12 | disposition home or self-care (01) ==
LOC: HO.MAMMO 09:11
PROVIDERS: PCP Internal Medicine; Visit Provider Internal Medicine
DX: Z13.820 Encounter for screening for osteoporosis (principal); Z78.0 Asymptomatic menopausal state; M81.0 Age-related osteoporosis without current pathological fracture
CPT/HCPCS: 77080

== ENCOUNTER → 2023-05-25 09:30 | Outpatient (BNV) | payer MEDICARE, SELFPAY | PROVIDERS: PCP Internal Medicine; Visit Provider Radiology Diagnostic Radiology | DX: M81.0 Age-related osteoporosis without current pathological fracture (principal) | CPT/HCPCS: 77080 ==

== ENCOUNTER 2023-06-02 07:59 | Outpatient (REF) | payer MEDICARE, SELFPAY ==
[2023-06-02 11:14] LABS: MANUAL DIFF FLAG NO
[2023-06-02 11:36] LABS: Basophils Absolute Auto 0.1 X10*3/uL (0.0-0.2); Basophils Percent Auto 1.1 % (0-2); Eosinophils Absolute Auto 0.2 X10*3/uL (0.0-0.4); Eosinophils Percent Auto 2.2 % (0-4); Hematocrit 35.1 % (37.0-47.0); Hemoglobin 11.1 g/dl (12.0-16.0); Imm Gran Abs Auto 0.04 X10*3/uL (0.00-0.03); Imm Gran Pct Auto 0.5 % (0.0-0.4); Immature Retic Fraction 9.5 % (3.0-15.9); Lymphocytes Absolute Auto 1.8 X10*3/uL (1.2-4.9); Mean Corpuscular HGB Conc 31.6 g/dl (31.0-35.0); Mean Corpuscular Hemoglobin 30.5 pg (27.0-33.0); Mean Corpuscular Volume 96.4 fL (80.0-98.0); Mean Platelet Volume 10.2 fL (9.4-12.3); Monocytes Absolute Auto 0.5 X10*3/uL (0.1-1.2); Neutrophils Absolute Auto 4.8 x10*3/uL (2.0-8.3); Neutrophils Percent Auto 65.2 % (45-73); Platelet Count 306 X10*3/uL (160-400); Red Blood Count 3.64 X10*6/uL (4.20-5.50); Red Cell Distribution Width 13.1 % (11.0-16.0); Retic HGB Equivalent 34.2 pg (30.0-35.0); Reticulocyte Percent 1.3 % (0.5-1.8); Reticulocytes Absolute 0.046 X10*6/uL (0.026-0.095); White Blood Count 7.3 X10*3/uL (4.8-10.8)
[2023-06-02 13:02] LABS: Creatinine Urine 132.61 mg/dL; Microalbum/Creatinine Ratio Ur 9.8 ug/mg cr (<30)
[2023-06-02 13:04] LABS: Folate 7.2 ng/mL (> or = 4.0); Vitamin B12 277 pg/mL (200-900)
[2023-06-02 15:38] LABS: Alanine Aminotransferase 10 U/L (0-31); Albumin Level 4.2 g/dL (3.5-5.0); Alkaline Phosphatase 84 U/L (39-117); Anion Gap 13 (12-20); Aspartate Amino Transferase 17 U/L (5-31); Bilirubin Total 0.3 mg/dL (0.0-1.0); Blood Urea Nitrogen 21 mg/dL (9-16); Calcium 9.3 mg/dL (8.4-10.2); Carbon Dioxide 26 mmol/L (22-29); Chloride 107 mmol/L (96-108); Cholesterol 171 mg/dL (<200); Estimated Glomerular Filt Rate 40; Glucose Random 122 mg/dL (60-115); HDL Cholesterol 42 mg/dL (>40); Iron 63 mcg/dL (30-160); LDL Cholesterol Calculated 106 mg/dL (<100); Percent Iron Saturation 26 % (15-50); Potassium 4.7 mmol/L (3.3-5.1); Sodium 141 mmol/L (135-145); Total Iron Binding Capacity 238 mcg/dL (228-428); Total Protein 6.9 g/dL (6.5-8.0); Triglycerides 119 mg/dL (<150); Unsaturated Iron Binding 175 ug/dL
[2023-06-02 15:41] LABS: Ferritin 126 ng/mL (10-250); Free T4 (Free Thyroxine) 0.78 ng/dL (0.71-1.85); Thyroid Stimulating Hormone 1.93 uIU/mL (0.32-4.0)
== END 2023-06-02 08:00 | disposition home or self-care (01) ==
LOC: HO.HMGCLDS 07:59
PROVIDERS: PCP Internal Medicine; Visit Provider Internal Medicine
DX: D64.9 Anemia, unspecified (principal); E11.65 Type 2 diabetes mellitus with hyperglycemia; E78.00 Pure hypercholesterolemia, unspecified
CPT/HCPCS: 36415; 80053; 80061; 82043; 82570; 82607; 82728; 82746; 83540; 84439; 84443; 85025; 85045

== ENCOUNTER 2023-08-15 08:40 | Outpatient (REF) | payer MEDICARE, SELFPAY ==
--- NOTE | ~2023-08-15 | XR_ITS ---
EXAMINATION: XR KNEE, LEFT CLINICAL INFORMATION: Pain in left knee. COMPARISON: 12/15/2022. TECHNIQUE: Two views of the left knee. FINDINGS: The bones are diffusely demineralized. Mild medial joint space narrowing. Tiny tricompartmental osteophytes. Advanced vascular calcifications. Suprapatellar effusion. XR/XR knee LT 2V IMPRESSION: Suprapatellar effusion. Mild degenerative changes. Bones are diffusely demineralized. Correlation with clinical exam recommended to determine further management. If there is concern for fracture or other underlying pathology, MRI could be obtained for further evaluation.
== END 2023-08-15 08:41 | disposition home or self-care (01) ==
LOC: HO.XRAY 08:40
PROVIDERS: PCP Internal Medicine; Visit Provider Internal Medicine
DX: M25.562 Pain in left knee (principal)
CPT/HCPCS: 73560

== ENCOUNTER 2023-08-24 12:35 | Outpatient (AMB) | payer MEDICARE, SELFPAY ==
--- NOTE | 2023-08-24 12:47 | A.OFFVIS_ITS ---
Intake Intake Visit Reasons: New Prob - LT knee pain Intake Note: Michelle is a 77 year old female who presents today for a New Problem visit with complaints of left knee pain. Hx of Right TKA 09/20/22. Patient reports that she has been having pain in the left knee for about 2 months now. She reports that she has history of left knee surgery and multiple aspirations as a child. Allergies atorvastatin [From Lipitor] Allergy (Intermediate, Verified 08/24/23 12:50) Leg cramps simvastatin Allergy (Intermediate, Verified 08/24/23 12:50) leg cramps meperidine [From Demerol] Adverse Reaction (Intermediate, Verified 08/24/23 12:50) Vomiting, passed out celecoxib [From Celebrex] Adverse Reaction (Mild, Verified 08/24/23 12:50) Over active bladder HPI New Prob - LT knee pain HPI Details Michelle is a 78 year old woman who presents with complaints of left knee pain. She complains of pain with daily activity, and she is worried it is swollen. Her pain has been present for ~2 months now. She has a hx of multiple knee aspirations as a child, and is concerned she again has water on the knee . She is afraid of needing surgery on this knee, and is hoping an aspiration or injection could help her. She is ~11 months S/P right TKA, with no complaints today. [facility] Medical History Medicare annual wellness visit, subsequent Breast cancer screening by mammogram Non-insulin dependent type 2 diabetes mellitus Anemia IBS (irritable bowel syndrome) Osteoarthritis Osteopenia Skin cancer, basal cell Chronic renal insufficiency Patellofemoral instability of right knee with pain Annual physical exam Tinea corporis Foul smelling urine Osteoarthritis, knee Generalized anxiety disorder Bilateral hand numbness Annual physical exam Fatigue Right knee meniscal tear Osteoarthritis of right knee Internal derangement of right knee Knee effusion, right Right knee injury Sprain of right knee Osteoporosis Cervical compression fracture PTSD (post-traumatic stress disorder) Rectocele Type 2 diabetes mellitus with hyperglycemia Hypercholesterolemia Bladder prolapse Obesity (BMI 30-39.9) Anxiety and depression Vitamin D deficiency Hypertension Surgical History Hx of left knee surgery Hx of meniscectomy of right knee H/O colonoscopy History of bladder surgery History of section History of bilateral cataract extraction History of hysterectomy with bilateral oophorectomy Family History Mother Heart attack Father No problems noted. Sister Heart abnormality Social History Housing: Apartment Are you a primary hemodialysis patient care specialist to a significant other at home: No Do you presently have visiting nurse or other home services: No Alcohol intake: never Patient Tobacco Use Status: Never used Tobacco e-Cigarette/Vaping Use: Never Used Second Hand Smoke Exposure: No service: No Current occupational status: retired Current occupation: Right Handed Current occupational exposures/hazards: No Cognitive needs: No Hearing needs: No Vision needs: Yes Review of Systems Const All systems reviewed & are unremarkable except as noted in HPI and below Physical Exam Const General: no acute distress, alert and awake Orientation/consciousness: patient oriented x3 HEENT Head: Yes normocephalic and Yes atraumatic Eyes EOM: EOMs intact bilaterally Resp Effort & Inspection: normal respiratory effort and able to speak in complete sentences Cardio Jugular venous distension: no JVD Skin General skin exam: turgor normal Rashes: no rashes Neuro General: patient oriented x3 Extrem Other: no effusion 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 Site was prepped using aseptic technique. Patient tolerated the procedure well. Primary Site: left knee Approach Used: anterolateral Coding 32957 - Large joint Procedure code (CPT) selection complete Results Reviewed Results Reviewed: I personally reviewed relevant radiographs. Suprapatellar effusion. Mild degenerative changes. Bones are diffusely demineralized. Assessment & Plan Assessment & Plan (1) Left knee pain: Code(s): M25.562 - Pain in left knee Plan: Left knee pain that without radiographic evidence of severe OA. Injected left knee as she has had benefit from injections in past. (2) Status post total right knee replacement: Comment: September 2022 Code(s): Z96.651 - Presence of right artificial knee joint Plan: No complaints (3) Type 2 diabetes mellitus with hyperglycemia: Comment: borderline per patient-taking Metformin once/day-does not check at home-last A1C-5.8% 05/2022 Code(s): E11.65 - Type 2 diabetes mellitus with hyperglycemia Plan: Discussed hyperglycemic effets of steroids. Plan Scribed for Herve Alexander MD by Landon Riddle, medical grade shoemaker, on 08/24/23 at 12:45 PM, EST. Coding Level of Care Code Est Pt Level 4 (61085) Diagnoses Left knee pain M25.562 Status post total right knee replacement Z96.651 Type 2 diabetes mellitus with hyperglycemia E11.65 CPT Codes Coding - 26799 Large joint: 48721 - Large joint ([id number])
== END 2023-08-24 13:39 | disposition home or self-care (01) ==
PROVIDERS: PCP Internal Medicine; Visit Provider Orthopaedic Surgery
DX: M25.562 Pain in left knee (principal); Z96.651 Presence of right artificial knee joint; E11.65 Type 2 diabetes mellitus with hyperglycemia
CPT/HCPCS: 20610; 99214

== ENCOUNTER → 2023-08-24 12:35 | Outpatient (BNVA) | payer MEDICARE, SELFPAY | PROVIDERS: PCP Internal Medicine; Visit Provider Orthopaedic Surgery | DX: M25.562 Pain in left knee (principal); E11.65 Type 2 diabetes mellitus with hyperglycemia; Z96.651 Presence of right artificial knee joint | CPT/HCPCS: 20610; 99212; J0665; J1100 ==

== ENCOUNTER 2023-10-30 08:01 | Outpatient (REF) | payer MEDICARE, SELFPAY ==
[2023-10-30 11:48] LABS: MANUAL DIFF FLAG NO
[2023-10-30 12:01] LABS: Basophils Absolute Auto 0.1 X10*3/uL (0.0-0.2); Basophils Percent Auto 1.4 % (0-2); Eosinophils Absolute Auto 0.2 X10*3/uL (0.0-0.4); Eosinophils Percent Auto 2.4 % (0-4); Hematocrit 35.6 % (37.0-47.0); Hemoglobin 11.5 g/dl (12.0-16.0); Imm Gran Abs Auto 0.03 X10*3/uL (0.00-0.03); Imm Gran Pct Auto 0.5 % (0.0-0.4); Immature Retic Fraction 11.8 % (3.0-15.9); Lymphocytes Absolute Auto 1.5 X10*3/uL (1.2-4.9); Lymphocytes Percent Auto 23.1 % (20-40); Mean Corpuscular HGB Conc 32.3 g/dl (31.0-35.0); Mean Corpuscular Hemoglobin 31.1 pg (27.0-33.0); Mean Corpuscular Volume 96.2 fL (80.0-98.0); Mean Platelet Volume 9.8 fL (9.4-12.3); Monocytes Absolute Auto 0.4 X10*3/uL (0.1-1.2); Monocytes Percent Auto 6.5 % (2-11); Neutrophils Absolute Auto 4.2 x10*3/uL (2.0-8.3); Neutrophils Percent Auto 66.1 % (45-73); Platelet Count 300 X10*3/uL (160-400); Red Cell Distribution Width 13.8 % (11.0-16.0); Retic HGB Equivalent 34.3 pg (30.0-35.0); Reticulocyte Percent 1.6 % (0.5-1.8); Reticulocytes Absolute 0.061 X10*6/uL (0.026-0.095); White Blood Count 6.3 X10*3/uL (4.8-10.8)
[2023-10-30 12:31] LABS: Creatinine Urine 115.26 mg/dL
[2023-10-30 12:43] LABS: Alanine Aminotransferase 12 U/L (0-31); Albumin Level 3.9 g/dL (3.5-5.0); Alkaline Phosphatase 81 U/L (39-117); Anion Gap 12 (12-20); Aspartate Amino Transferase 18 U/L (5-31); Bilirubin Total 0.4 mg/dL (0.0-1.0); Blood Urea Nitrogen 20 mg/dL (9-16); Calcium 9.4 mg/dL (8.4-10.2); Carbon Dioxide 29 mmol/L (22-29); Chloride 101 mmol/L (96-108); Estimated Glomerular Filt Rate 45; Glucose Random 105 mg/dL (60-115); Iron 75 mcg/dL (30-160); Percent Iron Saturation 29 % (15-50); Potassium 4.6 mmol/L (3.3-5.1); Sodium 137 mmol/L (135-145); Total Iron Binding Capacity 258 mcg/dL (228-428); Unsaturated Iron Binding 183 ug/dL
[2023-10-30 12:55] LABS: Folate 5.6 ng/mL (> or = 4.0); Vitamin B12 343 pg/mL (200-900)
[2023-10-30 13:04] LABS: Ferritin 90 ng/mL (10-250)
== END 2023-10-30 08:02 | disposition home or self-care (01) ==
LOC: HO.HMGCLDS 08:01
PROVIDERS: PCP Internal Medicine; Visit Provider Internal Medicine
DX: F41.1 Generalized anxiety disorder (principal); E11.65 Type 2 diabetes mellitus with hyperglycemia; E78.00 Pure hypercholesterolemia, unspecified
CPT/HCPCS: 36415; 80053; 82570; 82607; 82728; 82746; 83540; 85025; 85045

== ENCOUNTER 2023-11-03 09:32 | Outpatient (AMB) | payer BC, SELFPAY ==
[2023-11-03 09:41] VITALS: BP 122/70; PULSE 60; O2SAT 99; BMI 30.6
--- NOTE | 2023-11-03 09:41 | MHC.PC.OV ---
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: No Allergies atorvastatin [From Lipitor] Allergy (Intermediate, Verified 11/03/23 09:47) Leg cramps simvastatin Allergy (Intermediate, Verified 11/03/23 09:47) leg cramps meperidine [From Demerol] Adverse Reaction (Intermediate, Verified 11/03/23 09:47) Vomiting, passed out celecoxib [From Celebrex] Adverse Reaction (Mild, Verified 11/03/23 09:47) Over active bladder Medication List - Last Reconciled 11/03/23 by Alexis Melara MD acetaminophen 650 mg (2 x 325 mg) PO Q6H PRN 30 days atenolol 25 mg PO DAILY [Bedside commode Z96.651 - Presence of right artificial knee joint M17.11 - Unilateral primary osteoarthritis, right knee] calcium carbonate-vitamin D3 250 mg-3.125 mcg (125 unit) (Oyster Shell Calcium-Vitamin D3) 1 tab PO DAILY cholecalciferol (vitamin D3) 1 mcg PO DAILY clonazepam 2 mg PO BEDTIME 90 days cyanocobalamin (vitamin B-12) 1,000 mcg PO DAILY lisinopril 10 mg PO DAILY 90 days metformin 500 mg PO QPM multivitamin 1 tab PO DAILY rosuvastatin (Crestor) 20 mg PO BEDTIME sertraline 150 mg (1.5 x 100 mg) PO DAILY 90 days tramadol 50 mg PO DAILY PRN Tobacco use date assessed: 11/03/23 Fall risk assessment: No Falls in past year Last assessed Fall Risk: 11/03/23 Dental Screening Dental Screen Date: 11/03/23 HPI DM , Cholesterol HPI Details 78-year-old obese female with controlled diabetes mellitus osteopenia hypercholesterolemia generalized anxiety disorder coming in for follow-up. Last seen in April 2023 patient refused colonoscopy. Mammogram is up-to-date and bone density is up-to-date. 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 Annual physical exam Tinea corporis Foul smelling urine Osteoarthritis, knee Generalized anxiety disorder Bilateral hand numbness Annual physical exam Fatigue Right knee meniscal tear Osteoarthritis of right knee Internal derangement of right knee Knee effusion, right Right knee injury Sprain of right knee Osteoporosis Cervical compression fracture PTSD (post-traumatic stress disorder) Rectocele Type 2 diabetes mellitus with hyperglycemia Hypercholesterolemia Bladder prolapse Obesity (BMI 30-39.9) Anxiety and depression Vitamin D deficiency Hypertension Surgical History (Reviewed 08/24/23 @ 12:51 by Tammy Pimentel [facility]) Hx of left knee surgery Hx of meniscectomy of right knee H/O colonoscopy History of bladder surgery History of section History of bilateral cataract extraction History of hysterectomy with bilateral oophorectomy Family History (Reviewed 08/24/23 @ 12:51 by Tammy Pimentel [facility]) Mother Heart attack Father No problems noted. Sister Heart abnormality Social History Housing: Apartment Are you a primary care navigator to a significant other at home: No Do you presently have visiting nurse or other home services: No Alcohol intake: never Patient Tobacco Use Status: Never used Tobacco e-Cigarette/Vaping Use: Never Used Second Hand Smoke Exposure: No service: No Current occupational status: retired Current occupation: Right Handed Current occupational exposures/hazards: No Cognitive needs: No Hearing needs: No Vision needs: Yes Questionnaire PHQ-9 Over the last 2 weeks, how often have you been bothered by any of the following problems? 1. Little interest or pleasure in doing things: not at all 2. Feeling down, depressed, or hopeless: not at all 3. Trouble falling or staying asleep, or sleeping too much: not at all 4. Feeling tired or having little energy: not at all 5. Poor appetite or overeating: not at all 6. Feeling bad about yourself - or that you are a failure or have let yourself or your family down: not at all 7. Trouble concentrating on things, such as reading the newspaper or watching television: not at all 8. Moving or speaking so slowly that other people could have noticed. Or the opposite - being so fidgety or restless that you have been moving around a lot more than usual: not at all 9. Thoughts that you would be better off or of hurting yourself in some way: not at all Total score: 0 Depression Screening Interpretation: Negative Depression Screening Done: Yes Source: Developed by Drs. Yuriy Noe, Lor Duncan, Almas Bailey and colleagues, with an educational kit from [employer]. Thrive Questionnaire Date Thrive assessed: 11/03/23 AUDIT C Alcohol Use Questionnaire (AUDIT-C) 1. How often do you have a drink containing alcohol?: Never 3. How often do you have six or more drinks on one occasion?: Never Total Score: 0 VIVIAN-7 AMB Questionnaire VIVIAN-7 Date VIVIAN - 7 assessed: 11/03/23 Feeling nervous, anxious, or on edge: 0 = Not at all Not being able to stop or control worryin = Not at all Worrying too much about different things: 0 = Not at all Trouble relaxin = Not at all Being so restless that it is hard to sit still: 0 = Not at all Becoming easily annoyed or irritable: 0 = Not at all Feeling afraid as if something awful might happen: 0 = Not at all Total VIVIAN-7 score (0-4 normal; 5-9 mild; 10-14 moderate; 15-21 severe): 0 Source: Developed by Drs. Yuriy Noe, Lor Duncan, Almas Bailey and colleagues, with an educational kit from [employer]. Physical exam (Primary Care) Vital Signs: Last Vital Signs Pulse 60 11/03/23 09:41 BP 122/70 11/03/23 09:41 Pulse Ox 99 11/03/23 09:41 Oxygen Delivery Method Room Air 11/03/23 09:41 BMI result Body Mass Index 30.6 Tobacco/Smoking Status: Tobacco use Status Tobacco use date assessed 11/03/23 11/03/23 09:51 Patient Tobacco Use Status Never used Tobacco 11/03/23 09:51 e-Cigarette/Vaping Use Never Used 11/03/23 09:51 PHQ-9: PHQ-9 Score PHQ-9: Total score 0 11/03/23 09:51 Depression Screening Interpretation: Negative Thrive Assessment: Date of Thrive Assessment Date Thrive assessed 11/03/23 11/03/23 09:51 Const General: alert; No acute distress Eyes Conjunctivae: conjunctivae normal Resp Auscultation: clear to auscultation bilaterally Cardio Rate: regular rate Rhythm: regular rhythm GI Inspection: Yes normal to inspection Extrem General: Yes normal to inspection and No edema Results AMB Hemoglobin A1c AMB Hemoglobin A1c 6.1 % Last Edit by TEE Cohen on 11/03/23 09:52 Results Reviewed Results Reviewed: Laboratory Last Values Hgb A1c (Clinic) 6.1 % (4.0-6.0) H 11/03/23 09:27 Assessment and Plan Assessment & Plan (1) Type 2 diabetes mellitus with hyperglycemia: Comment: borderline per patient-taking Metformin once/day-does not check at home-last A1C-5.8% 05/2022 Code(s): E11.65 - Type 2 diabetes mellitus with hyperglycemia Plan: Decrease the amount of carbohydrate intake, pasta, bread, rice and potatoes are all sugar and that is aside from all the sweet stuff, remember that fruits are good but they are Sweet also. Hemoglobin A1c goal of less than 7.0 . Presently on metformin 500 mg once a day (2) Obesity (BMI 30-39.9): Code(s): E66.9 - Obesity, unspecified Plan: Diet and exercise (3) Hypercholesterolemia: Code(s): E78.00 - Pure hypercholesterolemia, unspecified Plan: Avoid fried foods, chicken skin, eggs, butter margarine, pastries and meat. Be it pork or beef they have a lot of cholesterol patient on rosuvastatin 20 mg once a day LDL goal of less than 100. May 2023 last blood work (4) Generalized anxiety disorder: Comment: Declined counseling referral April 2022 Code(s): F41.1 - Generalized anxiety disorder Plan: Continue with present medication (5) Osteopenia: Comment: May 2021 bone density. May 2023 Code(s): M85.80 - Other specified disorders of bone density and structure, unspecified site Plan: Continue with vitamin-D and calcium (6) Bilateral knee pain: Code(s): M25.561 - Pain in right knee; M25.562 - Pain in left knee Plan: pain medication started Orders: Orders AMB Hemoglobin A1c Today E11.65 - Type 2 diabetes mellitus with hyperglycemia Lipid Panel Today E78.00 - Pure hypercholesterolemia, unspecified Medications: New duloxetine 30 mg PO DAILY 30 caps 3RF F41.1 - Generalized anxiety disorder Changed From tramadol 50 mg PO BID PRN Pain M25.561 - Pain in right knee, M25.562 - Pain in left knee To tramadol 50 mg PO DAILY PRN 30 tabs 1RF Pain M25.561 - Pain in right knee, M25.562 - Pain in left knee Refilled clonazepam 2 mg PO BEDTIME 90 days 90 tabs 1RF E78.00 - Pure hypercholesterolemia, unspecified Discontinued sertraline Discontinued Reason: Patient Completed Course 150 mg (1.5 x 100 mg) PO DAILY 90 days 135 tabs 1RF F41.1 - Generalized anxiety disorder Coding Level of Care Code Est Pt Level 4 (36076) Diagnoses Type 2 diabetes mellitus with hyperglycemia E11.65 Obesity (BMI 30-39.9) E66.9 Hypercholesterolemia E78.00 Generalized anxiety disorder F41.1 Osteopenia M85.80 Bilateral knee pain M25.561; M25.562
== END 2023-11-03 10:21 | disposition home or self-care (01) ==
PROVIDERS: PCP Internal Medicine; Visit Provider Internal Medicine
DX: E11.65 Type 2 diabetes mellitus with hyperglycemia (principal); E66.9 Obesity, unspecified; E78.00 Pure hypercholesterolemia, unspecified; Z68.30 Body mass index [BMI] 30.0-30.9, adult; F41.1 Generalized anxiety disorder; M85.80 Other specified disorders of bone density and structure, unspecified site; M25.561 Pain in right knee; M25.562 Pain in left knee
CPT/HCPCS: 83036; 99214

== ENCOUNTER 2024-01-22 09:03 | Outpatient (REF) | payer MEDICARE, SELFPAY ==
[2024-01-22 10:56] LABS: Cholesterol 168 mg/dL (<200); HDL Cholesterol 39 mg/dL (>40); LDL Cholesterol Calculated 110 mg/dL (<100); Triglycerides 95 mg/dL (<150)
== END 2024-01-22 09:04 | disposition home or self-care (01) ==
LOC: HO.HMGCLDS 09:03
PROVIDERS: PCP Internal Medicine; Visit Provider Internal Medicine
DX: E78.00 Pure hypercholesterolemia, unspecified (principal)
CPT/HCPCS: 36415; 80061

== ENCOUNTER 2024-02-07 08:55 | Outpatient (AMB) | payer MEDICARE, SELFPAY ==
--- NOTE | 2024-02-07 08:56 | A.OFFPC_ITS ---
Intake Visit Reasons: 3 Month f/u knee pain , depression Intake Note: Patient requesting refills on Duloxetine and Clonzepam to be sent to the [facility]. Allergies atorvastatin [From Lipitor] Allergy (Intermediate, Verified 11/03/23 09:47) Leg cramps simvastatin Allergy (Intermediate, Verified 11/03/23 09:47) leg cramps meperidine [From Demerol] Adverse Reaction (Intermediate, Verified 11/03/23 09:47) Vomiting, passed out celecoxib [From Celebrex] Adverse Reaction (Mild, Verified 11/03/23 09:47) Over active bladder Medication List - Last Reconciled 02/07/24 by Alexis Melara MD acetaminophen 650 mg (2 x 325 mg) PO Q6H PRN 30 days atenolol 25 mg PO DAILY [Bedside commode Z96.651 - Presence of right artificial knee joint M17.11 - Unilateral primary osteoarthritis, right knee] calcium carbonate-vitamin D3 250 mg-3.125 mcg (125 unit) (Oyster Shell Calcium- Vitamin D3) 1 tab PO DAILY cholecalciferol (vitamin D3) 1 mcg PO DAILY clonazepam 2 mg PO BEDTIME 90 days cyanocobalamin (vitamin B-12) 1,000 mcg PO DAILY duloxetine 30 mg PO DAILY lisinopril 10 mg PO DAILY 90 days metformin 500 mg PO QPM multivitamin 1 tab PO DAILY rosuvastatin 40 mg PO BEDTIME tramadol 50 mg PO DAILY PRN Tobacco use date assessed: 11/03/23 Fall risk assessment: No Falls in past year Last assessed Fall Risk: 02/07/24 Dental Screening Dental Screen Date: 02/07/24 Did you have a dental visit in the last 12 months?: Yes Did you have a dental problem in the last 6 months where you did not have access to dental care?: No Was dental information given to patient?: Patient has dentist HPI 3 Month f/u knee pain , depression HPI Details 78-year-old obese female with diabetes m ellitus hypercholesterolemia generalized anxiety disorder coming in for follow-up. Last seen in October 2023 patient had tubular adenoma in April 2012 and she is due. Patient is up-to-date with mammogram and bone density. 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 [facility] Medical History (Updated 11/03/23 @ 10:04 by Alexis Melara MD) Age-related osteoporosis without current pathological fracture Medicare annual wellness visit, subsequent Breast cancer screening by mammogram Non-insulin dependent type 2 diabetes mellitus Anemia IBS (irritable bowel syndrome) Osteoarthritis Osteopenia Skin cancer, basal cell Chronic renal insufficiency Patellofemoral instability of right knee with pain Annual physical exam Tinea corporis Foul smelling urine Osteoarthritis, knee Generalized anxiety disorder Bilateral hand numbness Annual physical exam Fatigue Right knee meniscal tear Osteoarthritis of right knee Internal derangement of right knee Knee effusion, right Right knee injury Sprain of right knee Osteoporosis Cervical compression fracture PTSD (post-traumatic stress disorder) Rectocele Type 2 diabetes mellitus with hyperglycemia Hypercholesterolemia Bladder prolapse Obesity (BMI 30-39.9) Anxiety and depression Vitamin D deficiency Hypertension Surgical History Hx of left knee surgery Hx of meniscectomy of right knee H/O colonoscopy History of bladder surgery History of section History of bilateral cataract extraction History of hysterectomy with bilateral oophorectomy Family History Mother Heart attack Father No problems noted. Sister Heart abnormality Social History Housing: Apartment Are you a primary personal care attendant to a significant other at home: No Do you presently have visiting nurse or other home services: No Alcohol intake: never Patient Tobacco Use Status: Never used Tobacco e-Cigarette/Vaping Use: Never Used Second Hand Smoke Exposure: No service: No Current occupational status: retired Current occupation: Right Handed Current occupational exposures/hazards: No Cognitive needs: No Hearing needs: No Vision needs: Yes Questionnaire PHQ-9 Over the last 2 weeks, how often have you been bothered by any of the following problems? 1. Little interest or pleasure in doing things: more than half the days 2. Feeling down, depressed, or hopeless: more than half the days 3. Trouble falling or staying asleep, or sleeping too much: several days 4. Feeling tired or having little energy: several days 5. Poor appetite or overeating: not at all 6. Feeling bad about yourself - or that you are a failure or have let yourself or your family down: not at all 7. Trouble concentrating on things, such as reading the newspaper or watching television: not at all 8. Moving or speaking so slowly that other people could have noticed. Or the opposite - being so fidgety or restless that you have been moving around a lot more than usual: not at all 9. Thoughts that you would be better off or of hurting yourself in some way: not at all Total score: 6 Depression Screening Interpretation: Positive Depression Screening Done: Yes Source: Developed by Drs. Yuriy Noe, Almas Ocampo and colleagues, with an educational kit from [employer]. Thrive Questionnaire Date Thrive assessed: 11/03/23 AUDIT C Alcohol Use Questionnaire (AUDIT-C) 1. How often do you have a drink containing alcohol?: Never 3. How often do you have six or more drinks on one occasion?: Never Total Score: 0 VIVIAN-7 AMB Questionnaire VIVIAN-7 Date VIVIAN - 7 assessed: 02/07/24 Feeling nervous, anxious, or on edge: 1 = Several days Not being able to stop or control worryin = Several days Worrying too much about different things: 1 = Several days Trouble relaxin = Several days Being so restless that it is hard to sit still: 0 = Not at all Becoming easily annoyed or irritable: 1 = Several days Feeling afraid as if something awful might happen: 1 = Several days Total VIVIAN-7 score (0-4 normal; 5-9 mild; 10-14 moderate; 15-21 severe): 6 Source: Developed by Drs. Yuriy Noe, Almas Ocampo and colleagues, with an educational kit from [employer]. Physical exam (Primary Care) Tobacco/Smoking Status: Tobacco use Status Tobacco use date assessed 11/03/23 02/07/24 08:58 Patient Tobacco Use Status Never used Tobacco 02/07/24 08:58 e-Cigarette/Vaping Use Never Used 02/07/24 08:58 PHQ-9: PHQ-9 Score PHQ-9: Total score 6 02/07/24 15:33 Depression Screening Interpretation: Positive Thrive Assessment: Date of Thrive Assessment Date Thrive assessed 11/03/23 02/07/24 08:58 Telehealth Telehealth Telehealth Platform: Other (please specify) Location of provider rendering services: practice address Location of patient: address on file Patient Identification confirmed using: Name, : Yes Telehealth method: video (Iphone) Patient verbally consented to treatment: Yes Patient verbally consented to billing insurance company: Yes Patient informed of any privacy concerns related to visit: Yes Minutes spent on Phone/Video with Pt.: 25 Assessment and Plan Assessment & Plan (1) Type 2 diabetes mellitus with hyperglycemia: Comment: borderline per patient-taking Metformin once/day-does not check at home-last A1C-5.8% 05/2022 Code(s): E11.65 - Type 2 diabetes mellitus with hyperglycemia Plan: Decrease the amount of carbohydrate intake, pasta, bread, rice and potatoes are all sugar and that is aside from all the sweet stuff, remember that fruits are good but they are Sweet also. Hemoglobin A1c goal of less than 7.0 patient is on metformin 500 mg once a day (2) Obesity (BMI 30-39.9): Code(s): E66.9 - Obesity, unspecified Plan: Diet and exercise noted increase in weight (3) Hypercholesterolemia: Code(s): E78.00 - Pure hypercholesterolemia, unspecified Plan: Cholesterol plan LDL goal of less than 100 and triglyceride of less than 150 presently on rosuvastatin 20 mg once a day (4) Colonoscopy refused: Code(s): Z53.20 - Procedure and treatment not carried out because of patient's decision for unspecified reasons (5) Generalized anxiety disorder: Comment: Declined counseling referral April 2022 Code(s): F41.1 - Generalized anxiety disorder Plan: On duloxetine 30 mg once a day and clonazepam (6) Status post total right knee replacement: Comment: September 2022 Code(s): Z96.651 - Presence of right artificial knee joint Orders: Orders Hemoglobin A1c 3 Months E78.00 - Pure hypercholesterolemia, unspecified Complete Blood Count Auto Diff 3 Months E78.00 - Pure hypercholesterolemia, unspecified Lipid Panel 3 Months E78.00 - Pure hypercholesterolemia, unspecified Comprehensive Met. Panel 3 Months E78.00 - Pure hypercholesterolemia, unspecified Medications: Changed From rosuvastatin (Crestor) 20 mg PO BEDTIME 90 tabs 2RF E78.00 - Pure hypercholesterolemia, unspecified To rosuvastatin 40 mg PO BEDTIME 90 tabs 2RF E78.00 - Pure hypercholesterolemia, unspecified Refilled duloxetine 30 mg PO DAILY 90 caps 2RF F41.1 - Generalized anxiety disorder clonazepam 2 mg PO BEDTIME 90 tabs 1RF 90 days E78.00 - Pure hypercholesterolemia, unspecified Coding Level of Care Code Tele Est Pt Level 4 (06395) Diagnoses Type 2 diabetes mellitus with hyperglycemia E11.65 Obesity (BMI 30-39.9) E66.9 Hypercholesterolemia E78.00 Colonoscopy refused Z53.20 Generalized anxiety disorder F41.1 Status post total right knee replacement Z96.651
--- OUTSIDE RECORDS SUMMARY | 2024-02-07 08:57 | XMS_ITS | Patient Health Record ---
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 Name Role Phone Shelby Melaramiladymery Primary Care Provider Brigitte Mcnamara Unavailable [phone] ALLERGIES Allergen (clinical drug ingredient) Drug/Non Drug Allergy documented on EMR Reaction Allergy Type Onset Date Status sulfamethoxazole / trimethoprim Bactrim east infection Drug Allergy Inactive morphine Morphine vomiting Drug Allergy Inactiv e REASON FOR REFERRAL No Information MEDICATIONS Medication SIG (Take, Route, Frequency, Duration) Notes Start Date End Date Status Atenolol 25 MG 1 tablet Orally Once a day Active Naproxen Active Sertraline HCl 100 MG 1 tablet Orally On ce a day Not-Taking Aspirin 81 MG 1 tablet Orally Once a day Active clonazePAM 2 MG 1 tablet at bedtime Orally Once a day Active Extra-Depth Diabetic Shoes with 3 Pair Custom heat-molded multi-density innersoles . for 1 year . Dx:Niddm with neuropathy, foot deformity and preulcerative skin lesions for . 12/05/2013 Active Lisinopril 10 MG 1 tablet Orally Once a day Active Simvastatin Active metFORMIN HCl 500 MG 1 tablet with meals Orally Twice a day Active Zoloft Active Wellbutrin 100 MG 1 tablet Orally Thre e times a day Not-Taking Extra Depth Orthopedic Shoes (1 Pair) with Customized Heat Molded Multidensity Innersoles (3 Pair) as directed Dx: NIDDM/Polyneuropathy (E11.42), Hammertoe Foot Deformity (M20.41,M20.42), Preulcerative Skin Lesion(s) (L85.1 07/24/2020 Active IMMUNIZATIONS Vaccine Route Administration Date Status Comme nts COVID-19 Moderna Vaccine Unknown 10/21/2020 Administered Second Dose: 11/08 Influenza Unknown 06/18/2019 Administered Influenza Unknown 07/10/2020 Administered SOCIAL HISTORY Tobacco Use: Social History Observation Description Date Details (start date - stop date) Never Smoker NA - NA Sex Assigned At : Social History Observation Description Sex Assigned At Unknown Tobacco Use/Smoking Question Answer Notes Are you a: nonsmoker Alcohol Screen Question Answer Notes Did you have a drink containing alcohol in the p ast year? No Points 0 Interpretation Negative Tobacco use other than smoking: Question Answer Notes Are you an other tobacco user? No PROBLEMS Problem Type ICD Code Onset Dates Problem Status W/U Status Risk SNOMED Code Notes Problem Plantar wart (B07.0) Active confirmed Plantar wart (48348762) Problem Type 2 diabetes mellitus with diabetic polyneuropathy (E11.42) Active confirmed Polyneuropathy due to type 2 diabetes mellitus (165458008) PLAN OF TREATMENT Pending Test Test Name Order Date [id number] Plate 12/05/2013 [id number] SKIN LESIONS, OVER 4 12/06/19 14 [id number] NAIL(S) 12/05/2013 Insurance Providers Payer Name Payer Address Payer Phone Subscriber Number Group Number Insured Name Patient Relationship to Insured Coverage Start Date Coverage End Date [facility] 65 Medicare Preferred [address] [place] [address] [phone] [id number] Michelle Garcia Self - patient is the insured MEDICAL (GENERAL) HISTORY Medical History History ICD Code Anxiety Back,Hip,and Knee pain Broken bones Cholesterol Depression Diabetic Measles Mumps Chicken pox Surgical History Surgery Date(Month/Year) Left Foot Hammer Toe? unknown hysterectomy, total with bilateral salpi rajan-oophorectomy (BSO) unknown bilateral knee unknown bladder/rectal surgery 12/2016 Hospitalization History Reason Date(Month/Year) Left Foot Hammer Toe? unknown hysterectomy unknown bilateral knee unknown
== END 2024-02-07 16:16 | disposition home or self-care (01) ==
LOC: HO.HMGH 08:55
PROVIDERS: PCP Internal Medicine; Visit Provider Internal Medicine
DX: E11.65 Type 2 diabetes mellitus with hyperglycemia (principal); E78.00 Pure hypercholesterolemia, unspecified; F41.1 Generalized anxiety disorder; Z96.651 Presence of right artificial knee joint
CPT/HCPCS: 99214

== ENCOUNTER 2024-06-12 08:36 | Outpatient (REF) | payer MEDICARE, SELFPAY ==
--- NOTE | ~2024-06-12 | MM_ITS ---
EXAMINATION: MM SCREENING DIGITAL BREAST TOMOSYNTHESIS, BILATERAL CLINICAL INFORMATION: Screening. Asymptomatic. COMPARISON: Mammography: Comparison is made with available priors TECHNIQUE: Digital breast mammography with tomosynthesis is performed in both the craniocaudal and mediolateral oblique views along with computer-aided detection (CAD). FINDINGS: There are scattered areas of fibroglandular density (ACR BI-RADS breast composition Category b). There are no significant masses, abnormal calcifications, or other abnormalities. MM/MM tomosynthesis screening BI IMPRESSION: No mammographic evidence of malignancy. ASSESSMENT: BI-RADS BI-RADS 1 - Negative RECOMMENDATION: Routine annual mammography screening. 1 year F/U This examination should not preclude the clinical evaluation of a suspicious palpable abnormality. This patient's information was entered into a reminder system with a target due date for their next mammogram. Electronically signed by: Mehnaz Brice DO 06/24/2024 05:15 PM EDT
== END 2024-06-12 08:37 | disposition home or self-care (01) ==
LOC: HO.MAMMO 08:36
PROVIDERS: PCP Internal Medicine; Visit Provider Internal Medicine
DX: Z12.31 Encounter for screening mammogram for malignant neoplasm of breast (principal)
CPT/HCPCS: 77063; 77067

== ENCOUNTER → 2024-06-12 09:00 | Outpatient (BNV) | payer MEDICARE, SELFPAY | PROVIDERS: PCP Internal Medicine; Visit Provider Internal Medicine | DX: Z12.31 Encounter for screening mammogram for malignant neoplasm of breast (principal) | CPT/HCPCS: 77063; 77067 ==

== ENCOUNTER 2024-06-24 08:09 | Outpatient (REF) | payer MEDICARE, SELFPAY ==
[2024-06-24 10:04] LABS: MANUAL DIFF FLAG NO
[2024-06-24 10:11] LABS: Basophils Absolute Auto 0.1 X10*3/uL (0.0-0.2); Basophils Percent Auto 1.6 % (0-2); Eosinophils Absolute Auto 0.2 X10*3/uL (0.0-0.4); Eosinophils Percent Auto 1.9 % (0-4); Hematocrit 37.2 % (37.0-47.0); Hemoglobin 12.2 g/dl (12.0-16.0); Imm Gran Abs Auto 0.05 X10*3/uL (0.00-0.03); Imm Gran Pct Auto 0.6 % (0.0-0.4); Lymphocytes Absolute Auto 1.9 X10*3/uL (1.2-4.9); Lymphocytes Percent Auto 24.2 % (20-40); Mean Corpuscular HGB Conc 32.8 g/dl (31.0-35.0); Mean Corpuscular Hemoglobin 31.9 pg (27.0-33.0); Mean Corpuscular Volume 97.1 fL (80.0-98.0); Mean Platelet Volume 10.2 fL (9.4-12.3); Monocytes Absolute Auto 0.5 X10*3/uL (0.1-1.2); Monocytes Percent Auto 6.8 % (2-11); Neutrophils Absolute Auto 5.2 x10*3/uL (2.0-8.3); Neutrophils Percent Auto 64.9 % (45-73); Platelet Count 350 X10*3/uL (160-400); Red Blood Count 3.83 X10*6/uL (4.20-5.50); Red Cell Distribution Width 12.6 % (11.0-16.0)
[2024-06-24 10:34] LABS: Alanine Aminotransferase 12 U/L (0-31); Albumin Level 4.1 g/dL (3.5-5.0); Alkaline Phosphatase 93 U/L (39-117); Anion Gap 9 (12-20); Aspartate Amino Transferase 16 U/L (5-31); Bilirubin Total 0.5 mg/dL (0.0-1.0); Blood Urea Nitrogen 20 mg/dL (9-16); Calcium 10.1 mg/dL (8.4-10.2); Carbon Dioxide 30 mmol/L (22-29); Chloride 104 mmol/L (96-108); Cholesterol 175 mg/dL (<200); Estimated Glomerular Filt Rate 34; Glucose Random 144 mg/dL (60-115); HDL Cholesterol 44 mg/dL (>40); LDL Cholesterol Calculated 108 mg/dL (<100); Potassium 5.1 mmol/L (3.3-5.1); Sodium 138 mmol/L (135-145); Total Protein 6.9 g/dL (6.5-8.0); Triglycerides 118 mg/dL (<150)
[2024-06-24 10:38] LABS: Estimated Average Glucose 126 mg/dL; Hemoglobin A1C 129.6648 umol/L; Total Hemoglobin (HGBA1C) 3107.3871 umol/L
== END 2024-06-24 08:10 | disposition home or self-care (01) ==
LOC: HO.HMGCLDS 08:09
PROVIDERS: PCP Internal Medicine; Visit Provider Internal Medicine
DX: E78.00 Pure hypercholesterolemia, unspecified (principal); Z13.1 Encounter for screening for diabetes mellitus
CPT/HCPCS: 36415; 80053; 80061; 83036; 85025

== ENCOUNTER 2024-06-26 09:30 | Outpatient (AMB) | payer MEDICARE, SELFPAY ==
--- NOTE | 2024-06-26 09:35 | A.OFFPC_ITS ---
Vital Signs 06/26/24 09:37 Height 5 ft 3 in Weight 172 lb 6 oz BMI 30.5 BP 120/60 Blood Pressure Location Lt brachial Position Sitting Pulse 55 Pulse Source Pulse Oximeter Pulse Oximetry (%) 91 L Oxygen Delivery Method Room Air Intake Visit Reasons: cholesterol , DM Intake Note: Patient is here to follow up on Cholesterol, DM and lab results. Shuttle Route Vehicle Operator Required: No Copper Etcher: Not Required per policy Accompanied by: Self / Same As Patient Allergies atorvastatin [From Lipitor] Allergy (Intermediate, Verified 06/26/24 09:36) Leg cramps simvastatin Allergy (Intermediate, Verified 06/26/24 09:36) leg cramps meperidine [From Demerol] Adverse Reaction (Intermediate, Verified 06/26/24 09:36) Vomiting, passed out celecoxib [From Celebrex] Adverse Reaction (Mild, Verified 06/26/24 09:36) Over active bladder Tobacco use date assessed: 06/26/24 Fall risk assessment: No Falls in past year Last assessed Fall Risk: 06/26/24 Dental Screening Dental Screen Date: 02/07/24 HPI cholesterol , DM HPI Details 79-year-old obese female with controlled diabetes mellitus hypercholesterolemia generalized anxiety disorder coming in for follow-up. Last seen in 11/07/2023. Patient's colonoscopy is due mammogram is up-to-date bone density is up-to-date. L knee pain, states has been loosing balance, hot flashes, L ear congested, [facility] Medical History (Updated 11/03/23 @ 10:04 by Alexis Melara MD) Age-related osteoporosis without current pathological fracture Medicare annual wellness visit, subsequent Breast cancer screening by mammogram Non-insulin dependent type 2 diabetes mellitus Anemia IBS (irritable bowel syndrome) Osteoarthritis Osteopenia Skin cancer, basal cell Chronic renal insufficiency Patellofemoral instability of right knee with pain Annual physical exam Tinea corporis Foul smelling urine Osteoarthritis, knee Generalized anxiety disorder Bilateral hand numbness Annual physical exam Fatigue Right knee meniscal tear Osteoarthritis of right knee Internal derangement of right knee Knee effusion, right Right knee injury Sprain of right knee Osteoporosis Cervical compression fracture PTSD (post-traumatic stress disorder) Rectocele Type 2 diabetes mellitus with hyperglycemia Hypercholesterolemia Bladder prolapse Obesity (BMI 30-39.9) Anxiety and depression Vitamin D deficiency Hypertension Surgical History Hx of left knee surgery Hx of meniscectomy of right knee H/O colonoscopy History of bladder surgery History of section History of bilateral cataract extraction History of hysterectomy with bilateral oophorectomy Family History Mother Heart attack Father No problems noted. Sister Heart abnormality Social History Housing: Apartment Are you a primary animal care service worker to a significant other at home: No Do you presently have visiting nurse or other home services: No Alcohol intake: never Patient Tobacco Use Status: Never used Tobacco e-Cigarette/Vaping Use: Never Used Second Hand Smoke Exposure: No service: No Current occupational status: retired Current occupation: Right Handed Current occupational exposures/hazards: No Cognitive needs: No Hearing needs: No Vision needs: Yes Questionnaire Thrive Questionnaire Date Thrive assessed: 11/03/23 Are you currently unemployed and looking for a job?: No VIVIAN-7 AMB Questionnaire VIVIAN-7 Date VIVIAN - 7 assessed: 02/07/24 Source: Developed by Drs. Yuriy Noe, Lor Duncan, Almas Bailey and colleagues, with an educational kit from [employer]. Physical exam (Primary Care) Vital Signs: Last Vital Signs Pulse 55 06/26/24 09:37 BP 120/60 06/26/24 09:37 Pulse Ox 91 L 06/26/24 09:37 Oxygen Delivery Method Room Air 06/26/24 09:37 BMI result Body Mass Index 30.5 Tobacco/Smoking Status: Tobacco use Status Tobacco use date assessed 06/26/24 06/26/24 09:42 Patient Tobacco Use Status Never used Tobacco 06/26/24 09:42 e-Cigarette/Vaping Use Never Used 06/26/24 09:42 Thrive Assessment: Date of Thrive Assessment Date Thrive assessed 11/03/23 06/26/24 09:42 Const General: alert; No acute distress Eyes Conjunctivae: conjunctivae normal Resp Auscultation: clear to auscultation bilaterally Cardio Rate: regular rate Rhythm: regular rhythm GI Inspection: Yes normal to inspection Extrem General: Yes normal to inspection and No edema Office Procedures Flu Questionnaire Does the patient have a severe egg allergy?: No Does the patient have severe life threatening allergies?: No Does the patient have a fever or illness today?: No Has the patient ever had Guillain-Sunshine Syndrome?: No Has the patient ever had any past reaction to a flu shot?: No Results AMB Urinalysis, Automated UA Leukoctes 2 Suzi/uL Last Edit by TEE Diaz on 06/26/24 10:44 UA Nitrite Positive Last Edit by Sonia Chavez, [facility] on 06/26/24 10:44 UA Urobilinogen 2 mg/dL Last Edit by Sonia Chavez [facility] on 06/26/24 10:44 UA Protein 1 mg/dL Last Edit by Sonia Chavez [facility] on 06/26/24 10:44 UA pH 5.5 Last Edit by Sonia Chavez [facility] on 06/26/24 10:44 UA Blood 0 Jamari/uL Last Edit by Sonia Chavez [facility] on 06/26/24 10:44 UA Specific [place] 1.025 Last Edit by Sonia Chavez [facility] on 06/26/24 10: 44 UA Ketone Positive Last Edit by Sonia Chavez [facility] on 06/26/24 10:44 UA Bilirubin 0 mg/dL Last Edit by Sonia Chavez [facility] on 06/26/24 10:44 UA Glucose 0 mg/dL Last Edit by Sonia Chavez [facility] on 06/26/24 10:44 Immunizations Fluarix Triv [id number] (PF) 45 mcg (15 mcg x 3)/0.5 mL IM syringe Performing Provider: Alexis Melara MD [facility] Administered by: TEE Brown on 06/26/24 09:49 Dose Route Admin Location Dispensed Lot Number Expiration Date [facility] Staff Analyst 0.5 mL IM Left Deltoid 0.5 mL [id number] 03/17/25 [id number] [employer] VIS Given Date VIS Provided VIS Publication Date 06/26/24 Single Vaccine 21 Eligibility Eligibility Date Funding Source Not [facility] Eligible 06/26/24 Private Coding Level of Care Code Est Pt Level 4 (87068) Complex EM visit Add On G2211 Diagnoses Type 2 diabetes mellitus with hyperglycemia E11.65 Hypercholesterolemia E78.00 Obesity (BMI 30-39.9) E66.9 Renal insufficiency N28.9 Generalized anxiety disorder F41.1 Colon cancer screening Z12.11 Assessment & Plan Assessment & Plan (1) Type 2 diabetes mellitus with hyperglycemia: Comment: borderline per patient-taking Metformin once/day-does not check at home-last A1C-5.8% 05/2022 Code(s): E11.65 - Type 2 diabetes mellitus with hyperglycemia Category: Medical Plan: Decrease the amount of carbohydrate intake, pasta, bread, rice and potatoes are all sugar and that is aside from all the sweet stuff, remember that fruits are good but they are Sweet also. Hemoglobin A1c goal of less than 7.0 patient is diet controlled. (2) Hypercholesterolemia: Code(s): E78.00 - Pure hypercholesterolemia, unspecified Category: Medical Plan: Avoid fried foods, chicken skin, eggs, butter margarine, pastries and meat. Be it pork or beef they have a lot of cholesterol on rosuvastatin 40 mg once a day LDL goal of less than 100 and triglyceride of less than 150. (3) Obesity (BMI 30-39.9): Code(s): E66.9 - Obesity, unspecified Category: Medical Plan: Diet and exercise (4) Renal insufficiency: Code(s): N28.9 - Disorder of kidney and ureter, unspecified Category: Medical Plan: Keep well hydrated avoid NSAIDs will follow-up blood work (5) Generalized anxiety disorder: Comment: Declined counseling referral April 2022 Code(s): F41.1 - Generalized anxiety disorder Category: Medical Plan: Continue with present medication (6) Colon cancer screening: Comment: April 2012 last colonoscopy Code(s): Z12.11 - Encounter for screening for malignant neoplasm of colon Category: Medical Plan: Patient is reminded about colonoscopy. but declined Orders: Orders Comprehensive Met. Panel Today E11.65 - Type 2 diabetes mellitus with hyperglycemia Free T4 (Free Thyroxine) Today E11.65 - Type 2 diabetes mellitus with hyperglycemia Thyroid Stimulating Hormone Today E11.65 - Type 2 diabetes mellitus with hyperglycemia Microalbumin, Random (w Creat) Today E11.65 - Type 2 diabetes mellitus with hyperglycemia Vitamin B12 and Folate Today E11.65 - Type 2 diabetes mellitus with hyperglycemia Influenza [id number] Immunization Today Z23 - Encounter for immunization Complete Blood Count Auto Diff Today E11.65 - Type 2 diabetes mellitus with hyperglycemia Creatinine Urine Today E11.65 - Type 2 diabetes mellitus with hyperglycemia Vitamin D 25-OH Total Today E11.65 - Type 2 diabetes mellitus with hyperglycemia Lipid Panel Today E11.65 - Type 2 diabetes mellitus with hyperglycemia, E78.00 - Pure hypercholesterolemia, unspecified AMB Urinalysis Automated Today N28.9 - Disorder of kidney and ureter, unspecified, Z13.9 - Encounter for screening, unspecified Medications: New fluticasone propionate 50 mcg/actuation (Flonase Allergy Relief) administer into each nostril 2 sprays intranasal DAILY 16 grams 3RF E11.65 - Type 2 diabetes mellitus with hyperglycemia
[2024-06-26 09:37] VITALS: BP 120/60; PULSE 55; O2SAT 91; BMI 30.5
== END 2024-06-26 10:28 | disposition home or self-care (01) ==
PROVIDERS: PCP Internal Medicine; Visit Provider Internal Medicine
DX: E11.65 Type 2 diabetes mellitus with hyperglycemia (principal); Z68.30 Body mass index [BMI] 30.0-30.9, adult; E66.811 Obesity, class 1; E78.00 Pure hypercholesterolemia, unspecified; N28.9 Disorder of kidney and ureter, unspecified; F41.1 Generalized anxiety disorder; Z12.11 Encounter for screening for malignant neoplasm of colon

== ENCOUNTER → 2024-06-26 09:30 | Outpatient (BNVA) | payer MEDICARE, SELFPAY | PROVIDERS: PCP Internal Medicine; Visit Provider Internal Medicine | DX: Z23 Encounter for immunization (principal); E11.65 Type 2 diabetes mellitus with hyperglycemia; E78.00 Pure hypercholesterolemia, unspecified; E66.9 Obesity, unspecified; F41.1 Generalized anxiety disorder; N28.9 Disorder of kidney and ureter, unspecified | CPT/HCPCS: 81003; 90471; 90656; 99212 ==

== ENCOUNTER 2024-07-02 08:41 | Outpatient (REF) | payer MEDICARE, SELFPAY ==
[2024-07-02 09:59] LABS: MANUAL DIFF FLAG NO
[2024-07-02 10:04] LABS: Basophils Absolute Auto 0.1 X10*3/uL (0.0-0.2); Basophils Percent Auto 1.5 % (0-2); Eosinophils Absolute Auto 0.2 X10*3/uL (0.0-0.4); Hematocrit 36.1 % (37.0-47.0); Imm Gran Abs Auto 0.03 X10*3/uL (0.00-0.03); Imm Gran Pct Auto 0.4 % (0.0-0.4); Lymphocytes Absolute Auto 1.9 X10*3/uL (1.2-4.9); Lymphocytes Percent Auto 24.8 % (20-40); Mean Corpuscular HGB Conc 33.2 g/dl (31.0-35.0); Mean Corpuscular Volume 96.3 fL (80.0-98.0); Mean Platelet Volume 9.7 fL (9.4-12.3); Monocytes Absolute Auto 0.5 X10*3/uL (0.1-1.2); Monocytes Percent Auto 6.8 % (2-11); Neutrophils Absolute Auto 4.8 x10*3/uL (2.0-8.3); Neutrophils Percent Auto 64.5 % (45-73); Platelet Count 318 X10*3/uL (160-400); Red Blood Count 3.75 X10*6/uL (4.20-5.50); Red Cell Distribution Width 12.5 % (11.0-16.0); White Blood Count 7.5 X10*3/uL (4.8-10.8)
[2024-07-02 10:30] LABS: Creatinine Urine 85.92 mg/dL; Microalbum/Creatinine Ratio Ur 15.1 ug/mg cr (<30)
[2024-07-02 10:32] LABS: Alanine Aminotransferase 11 U/L (0-31); Albumin Level 4.1 g/dL (3.5-5.0); Alkaline Phosphatase 88 U/L (39-117); Anion Gap 11 (12-20); Aspartate Amino Transferase 17 U/L (5-31); Bilirubin Total 0.4 mg/dL (0.0-1.0); Blood Urea Nitrogen 19 mg/dL (9-16); Calcium 9.6 mg/dL (8.4-10.2); Carbon Dioxide 30 mmol/L (22-29); Chloride 103 mmol/L (96-108); Cholesterol 177 mg/dL (<200); Estimated Glomerular Filt Rate 36; Glucose Random 134 mg/dL (60-115); HDL Cholesterol 39 mg/dL (>40); LDL Cholesterol Calculated 112 mg/dL (<100); Potassium 4.9 mmol/L (3.3-5.1); Sodium 139 mmol/L (135-145); Total Protein 6.8 g/dL (6.5-8.0); Triglycerides 132 mg/dL (<150)
[2024-07-02 10:37] LABS: Free T4 (Free Thyroxine) 0.87 ng/dL (0.71-1.85); Thyroid Stimulating Hormone 2.54 uIU/mL (0.32-4.0); Vitamin D 25-OH Total 61.3 ng/mL (>30)
[2024-07-02 11:00] LABS: Folate 6.5 ng/mL (> or = 4.0); Vitamin B12 312 pg/mL (200-900)
== END 2024-07-02 08:42 | disposition home or self-care (01) ==
LOC: HO.HMGCLDS 08:41
PROVIDERS: PCP Internal Medicine; Visit Provider Internal Medicine
DX: E11.65 Type 2 diabetes mellitus with hyperglycemia (principal); E78.00 Pure hypercholesterolemia, unspecified
CPT/HCPCS: 36415; 80053; 80061; 82043; 82306; 82570; 82607; 82746; 84439; 84443; 85025

== ENCOUNTER 2024-10-15 09:18 | Outpatient (AMB) | payer MEDICARE, SELFPAY ==
[2024-10-15 09:38] VITALS: BP 112/58; PULSE 67; O2SAT 90; BMI 30.5
--- NOTE | 2024-10-15 09:38 | A.OFFPC_ITS ---
Vital Signs 10/15/24 09:38 Height 5 ft 3 in Weight 172 lb BMI 30.5 BP 112/58 L Blood Pressure Location Lt brachial Position Sitting Pulse 67 Pulse Source Pulse Oximeter Pulse Oximetry (%) 90 L Oxygen Delivery Method Room Air Intake Visit Reasons: Diabetes mellitus Intake Note: Requesting teaching for diabetic supplies Requesting refill on Clonazepam Allergies atorvastatin [From Lipitor] Allergy (Intermediate, Verified 10/15/24 09:39) Leg cramps simvastatin Allergy (Intermediate, Verified 10/15/24 09:39) leg cramps meperidine [From Demerol] Adverse Reaction (Intermediate, Verified 10/15/24 09:39) Vomiting, passed out celecoxib [From Celebrex] Adverse Reaction (Mild, Verified 10/15/24 09:39) Over active bladder Tobacco use date assessed: 10/15/24 Fall risk assessment: No Falls in past year Last assessed Fall Risk: 10/15/24 Dental Screening Dental Screen Date: 10/15/24 Did you have a dental visit in the last 12 months?: Yes Did you have a dental problem in the last 6 months where you did not have access to dental care?: No Was dental information given to patient?: Patient has dentist HPI Diabetes mellitus HPI Details The patient is a 79-year-old female presenting with concerns about her current medications and management of depression and anxiety. She reports having been off all antidepressants for two months, having discontinued duloxetine due to undesired side effects and a subsequent recall of the medication. The patient experiences increased anxiety, depressive symptoms, and fatigue since stopping duloxetine. There is consideration by her care team to start on Wellbutrin (bu propion) for anxiety and depression management. The patient also has a history of Type 2 Diabetes Mellitus, with recent blood sugar control being noted but mentioning a slight rise in levels. Blood glucose monitoring is being addressed, and she receives aid from [facility], including home health assistance and meals on wheels. She also receives blood glucose testing equipment and guidance to assist with monitoring her diabetes independently. The patient's previous hemoglobin A1c test from April 2023 was at 5.8. Additionally, she is mindful of her condition risk factors and is keen on understanding her current health status. She maintains a consistent medication regimen for hypertension and hyperlipidemia, showing no current side effects or issues. The patient expresses concern over a financial dispute with [facility]. Her current blood pressure medication, lisinopril, is reportedly well-tolerated, and she is aware of its dual purpose in managing hypertension and protecting kidney function due to her diabetes. [facility] Medical History (Updated 10/15/24 @ 10:00 by Alexis Melara MD) Age-related osteoporosis without current pathological fracture Medicare annual wellness visit, subsequent Breast cancer screening by mammogram Non-insulin dependent type 2 diabetes mellitus Anemia IBS (irritable bowel syndrome) Osteoarthritis Osteopenia Skin cancer, basal cell Chronic renal insufficiency Patellofemoral instability of right knee with pain Annual physical exam Tinea corporis Foul smelling urine Osteoarthritis, knee Generalized anxiety disorder Bilateral hand numbness Annual physical exam Fatigue Right knee meniscal tear Osteoarthritis of right knee Internal derangement of right knee Knee effusion, right Right knee injury Sprain of right knee Osteoporosis Cervical compression fracture PTSD (post-traumatic stress disorder) Rectocele Type 2 diabetes mellitus with hyperglycemia Hypercholesterolemia Bladder prolapse Obesity (BMI 30-39.9) Anxiety and depression Vitamin D deficiency Hypertension Surgical History Hx of left knee surgery Hx of meniscectomy of right knee H/O colonoscopy History of bladder surgery History of section History of bilateral cataract extraction History of hysterectomy with bilateral oophorectomy Family History Mother Heart attack Father No problems noted. Sister Heart abnormality Social History Housing: Apartment Are you a primary health care assistant to a significant other at home: No Do you presently have visiting nurse or other home services: No Alcohol intake: never Patient Tobacco Use Status: Never used Tobacco Tobacco use type: Cigarette e-Cigarette/Vaping Use: Never Used Second Hand Smoke Exposure: No service: No Current occupational status: retired Current occupation: Right Handed Current occupational exposures/hazards: No Cognitive needs: No Hearing needs: No Vision needs: Yes Questionnaire PHQ-9 Over the last 2 weeks, how often have you been bothered by any of the following problems? 1. Little interest or pleasure in doing things: more than half the days 2. Feeling down, depressed, or hopeless: more than half the days 3. Trouble falling or staying asleep, or sleeping too much: several days 4. Feeling tired or having little energy: several days 5. Poor appetite or overeating: not at all 6. Feeling bad about yourself - or that you are a failure or have let yourself or your family down: not at all 7. Trouble concentrating on things, such as reading the newspaper or watching television: not at all 8. Moving or speaking so slowly that other people could have noticed. Or the opposite - being so fidgety or restless that you have been moving around a lot more than usual: not at all 9. Thoughts that you would be better off or of hurting yourself in some way: not at all Total score: 6 Depression Screening Interpretation: Positive Depression Screening Done: Yes Source: Developed by Drs. Yuriy Noe, Lor Duncan, Almas Bailey and colleagues, with an educational kit from [employer]. Thrive Questionnaire Date Thrive assessed: 10/15/24 I am a: Patient What is your living situation today?: I have a steady place to live Within the past 12 months, did the food you bought not last and you didn't have the money to get more?: Never true Within the past 12 months, did you worry whether your food would run out before you got money to buy more?: Never true Do you have trouble paying for medicines?: No Do you have trouble getting transportation to medical appointments?: No Do you have trouble paying your heating and electricity bill?: No Do you have trouble taking care of your child, family member or friend?: No Do you have trouble with day-to-day activities such as bathing, preparing meals, shopping, managing finances, etc.?: No Are you currently unemployed and looking for a job?: No Are you interested in more education?: No Currently or been in a relationship where the following occur: No concerns reported THRIVE Score: 0 AUDIT C Alcohol Use Questionnaire (AUDIT-C) 1. How often do you have a drink containing alcohol?: Never 3. How often do you have six or more drinks on one occasion?: Never Total Score: 0 VIVIAN-7 AMB Questionnaire VIVIAN-7 Date VIVIAN - 7 assessed: 10/15/24 Feeling nervous, anxious, or on edge: 1 = Several days Not being able to stop or control worryin = Several days Worrying too much about different things: 1 = Several days Trouble relaxin = Several days Being so restless that it is hard to sit still: 0 = Not at all Becoming easily annoyed or irritable: 0 = Not at all Feeling afraid as if something awful might happen: 1 = Several days Total VIVIAN-7 score (0-4 normal; 5-9 mild; 10-14 moderate; 15-21 severe): 5 Source: Developed by Drs. Yuriy Noe, Lor Duncan, Almas Bailey and colleagues, with an educational kit from [employer]. Physical exam (Primary Care) Vital Signs: Last Vital Signs Pulse 67 10/15/24 09:38 BP 112/58 L 10/15/24 09:38 Pulse Ox 90 L 10/15/24 09:38 Oxygen Delivery Method Room Air 10/15/24 09:38 BMI result Body Mass Index 30.5 Tobacco/Smoking Status: Tobacco use Status Tobacco use date assessed 10/15/24 10/15/24 09:53 Patient Tobacco Use Status Never used Tobacco 10/15/24 09:53 Tobacco use type Cigarette 10/15/24 09:53 e-Cigarette/Vaping Use Never Used 10/15/24 09:53 PHQ-9: PHQ-9 Score PHQ-9: Total score 6 10/15/24 10:01 Depression Screening Interpretation: Positive Thrive Assessment: Date of Thrive Assessment Date Thrive assessed 10/15/24 10/15/24 09:53 Currently or been in a relationship where the following occur: No concerns reported Const General: alert; No acute distress Eyes Conjunctivae: conjunctivae normal Resp Auscultation: clear to auscultation bilaterally Cardio Rate: regular rate Rhythm: regular rhythm GI Inspection: Yes normal to inspection Extrem General: Yes normal to inspection and No edema Results AMB Hemoglobin A1c AMB Hemoglobin A1c 6.4 % Last Edit by Sharron Siddiqui CMA on 10/15/24 09 :57 Results Reviewed Results Reviewed: Laboratory Last Values Hgb A1c (Clinic) 6.4 % (4.0-6.0) H 10/15/24 09:38 Coding Level of Care Code Est Pt Level 4 (21218) Complex EM visit Add On G2211 Diagnoses Type 2 diabetes mellitus with hyperglycemia E11.65 Hypercholesterolemia E78.00 Obesity (BMI 30-39.9) E66.9 Renal insufficiency N28.9 Generalized anxiety disorder F41.1 Assessment & Plan Assessment & Plan (1) Type 2 diabetes mellitus with hyperglycemia: Comment: borderline per patient-taking Metformin once/day-does not check at home-last A1C-5.8% 05/2022 Code(s): E11.65 - Type 2 diabetes mellitus with hyperglycemia Category: Medical (2) Hypercholesterolemia: Comment: cannot tolerate statins Code(s): E78.00 - Pure hypercholesterolemia, unspecified Category: Medical (3) Obesity (BMI 30-39.9): Code(s): E66.9 - Obesity, unspecified Category: Medical (4) Renal insufficiency: Code(s): N28.9 - Disorder of kidney and ureter, unspecified Category: Medical (5) Generalized anxiety disorder: Comment: Declined counseling referral April 2022 Code(s): F41.1 - Generalized anxiety disorder Category: Medical Plan: [facility] counselling stopped med . Plan - Consider starting a low dosage of Wellbutrin bupropion) for managing symptoms of depression and anxiety; begin with 150 mg once daily, with flexibility on morning or bedtime intake based on side effects. - Continue with current diabetes management, including lisinopril for renal protection. Regular blood sugar monitoring is encouraged with targets set to maintain postprandial levels below 150 mg/dL and fasting levels not lower than 90 mg/dL. - Evaluate lipid profiles in three months; continue current statin therapy and monitor for any adverse effects. - Address financial concerns related to healthcare billing with [facility] to avoid further issues. - Maintain awareness and adherence to health safety during flu season; ensure any visitors and health aides are cautious about illness exposure. - Monitor fall risk due to age-related challenges and anxiety-induced inattentiveness; address with Elder Care support. - Reinforce understanding of necessary health maintenance activities and upcoming follow-up testing and visits, particularly regarding cholesterol levels and ongoing diabetes management. Orders: Orders Complete Blood Count Auto Diff 3 Months E11.65 - Type 2 diabetes mellitus with hyperglycemia Free T4 (Free Thyroxine) 3 Months E11.65 - Type 2 diabetes mellitus with hyperglycemia Thyroid Stimulating Hormone 3 Months E11.65 - Type 2 diabetes mellitus with hyperglycemia Lipid Panel 3 Months E11.65 - Type 2 diabetes mellitus with hyperglycemia, E78.00 - Pure hypercholesterolemia, unspecified Vitamin B12 and Folate 3 Months E11.65 - Type 2 diabetes mellitus with hyperglycemia Creatinine Urine 3 Months E11.65 - Type 2 diabetes mellitus with hyperglycemia AMB Hemoglobin A1c Today Z13.9 - Encounter for screening, unspecified Comprehensive Met. Panel 3 Months . - Type 2 diabetes mellitus with hyp erglycemia Hemoglobin A1c 3 Months E11. - Type 2 diabetes mellitus with hyperglycemia Microalbumin, Random (w Creat) 3 Months . - Type 2 diabetes mellitus with hyperglycemia Medications: New bupropion HCl XL (Wellbutrin XL) 150 mg PO QAM 90 tabs 0RF F41.1 - Generalized anxiety disorder
--- OUTSIDE RECORDS SUMMARY | 2024-10-15 09:45 | XMS_ITS | Patient Health Record ---
Author Organization [facility] Address [address] [place] [address] Care Team Providers Care Environmental Change Analyst Name Role Phone Shelby Melaramiladymery Primary Care Provider Brigitte Mcnamara Unavailable [phone] Allergies Allergen (clinical drug ingredient) Drug/Non Drug Allergy documented on EMR Reaction Allergy Type Onset Date Status sulfamethoxazole / trimethoprim Bactrim east infection Drug Allergy Inactive morphine Morphine vomiting Drug Allergy Inactiv e Reason For Referral No Information Medications Medication SIG (Take, Route, Frequency, Duration) Notes [...] (M20.41,M20.42), Preulcerative Skin Lesion(s) (L85.1 07/24/2020 Active Immunizations Vaccine Route Administration Date Status Comme nts COVID-19 Moderna Vaccine Unknown 10/21/2020 Administered Second Dose: 11/08 Influenza Unknown 06/18/2019 Administered Influenza Unknown 07/10/2020 Administered Social History Tobacco Use: Social History Observation Description Date Details (start date - stop date) Never Smoker NA - NA Tobacco Use/Smoking Question Answer Notes Are you a: nonsmoker Alcohol Screen Question Answer Notes Did you have a drink containing alcohol in the p ast year? No Points 0 Interpretation Negative Tobacco use other than smoking: Question Answer Notes Are you an other tobacco user? No Problems Problem Type SNOMED Code ICD Code Onset Dates Problem Status W/U Status Risk Notes Problem Plantar wart (98852807) Plantar wart (B07.0) Active confirmed Problem Polyneuropathy due to type 2 diabetes mellitus (284760446) Type 2 diabetes mellitus with diabetic polyneuropathy (E11.42) Active confirmed Plan Of Treatment Pending Test Test Name Order Date 35033-Awtnorat Plate 12/05/2013 [id number]-[id number] SKIN LESIONS, OVER 4 12/06/19 14 [id number] NAIL(S) 12/05/2013 Insurance Providers Payer Name Payer Address Payer Phone Subscriber Number Group Number Insured Name Patient Relationship to Insured Coverage Start Date Coverage End Date BlueCare 65 Medicare Preferred [address] [place] [address] [phone] [id number] Michelle Garcia Self - patient is the insured Medical (General) History Medical History History ICD Code Anxiety Back,Hip,and Knee pain Broken bones Cholesterol Depression Diabetic Measles Mumps Chicken pox Surgical History Surgery Date(Month/Year) Left Foot Hammer Toe? unknown hysterectomy, total with bilateral salpi rajan-oophorectomy (BSO) unknown bilateral knee unknown bladder/rectal surgery 12/2016 Hospitalization History Reason Date(Month/Year) Left Foot Hammer Toe? unknown hysterectomy unknown bilateral knee unknown
== END 2024-10-15 10:23 | disposition home or self-care (01) ==
PROVIDERS: PCP Internal Medicine; Visit Provider Internal Medicine
DX: E11.65 Type 2 diabetes mellitus with hyperglycemia (principal); E78.00 Pure hypercholesterolemia, unspecified; E66.9 Obesity, unspecified; Z68.30 Body mass index [BMI] 30.0-30.9, adult; N28.9 Disorder of kidney and ureter, unspecified; F41.1 Generalized anxiety disorder

== ENCOUNTER → 2024-10-15 09:18 | Outpatient (BNVA) | payer MEDICARE, SELFPAY | PROVIDERS: PCP Internal Medicine; Visit Provider Internal Medicine | DX: E11.65 Type 2 diabetes mellitus with hyperglycemia (principal); E78.00 Pure hypercholesterolemia, unspecified; E66.9 Obesity, unspecified; N28.9 Disorder of kidney and ureter, unspecified; F41.1 Generalized anxiety disorder | CPT/HCPCS: 83036; 99212 ==

== ENCOUNTER 2024-11-26 14:00 | Outpatient (AMB) | payer MEDICARE, SELFPAY ==
--- NOTE | 2024-11-26 14:02 | A.OFFPSYCH_ITS ---
Intake Intake Visit Reasons: consultation Observation Assistant Required: No Allergies atorvastatin [From Lipitor] Allergy (Intermediate, Verified 10/15/24 09:39) Leg cramps simvastatin Allergy (Intermediate, Verified 10/15/24 09:39) leg cramps meperidine [From Demerol] Adverse Reaction (Intermediate, Verified 10/15/24 09:39) Vomiting, passed out celecoxib [From Celebrex] Adverse Reaction (Mild, Verified 10/15/24 09:39) Over active bladder Medication List - Last Reconciled 11/26/24 by Alise Mitchell APRN acetaminophen 650 mg (2 x 325 mg) PO Q6H PRN 30 days atenolol 25 mg PO DAILY [Bedside commode Z96.651 - Presence of right artificial knee joint M17.11 - Unilateral primary osteoarthritis, right knee] blood sugar diagnostic (FreeStyle Lite Strips) As directed check the BS QD blood-glucose meter (FreeStyle Lite Meter kit) As directed calcium carbonate-vitamin D3 250 mg-3.125 mcg (125 unit) (Oyster Shell Calcium- Vitamin D3) 1 tab PO DAILY cholecalciferol (vitamin D3) 1 mcg PO DAILY clonazepam 2 mg PO BEDTIME 90 days cyanocobalamin (vitamin B-12) 1,000 mcg PO DAILY escitalopram oxalate (Lexapro) 5 mg PO DAILY fluticasone propionate 50 mcg/actuation 2 sprays intranasal DAILY lancets (FreeStyle Lancets) As directed check BS QD lisinopril 10 mg PO DAILY 90 days metformin 500 mg PO QPM multivitamin 1 tab PO DAILY rosuvastatin 40 mg PO BEDTIME HPI- Psychiatric Chief Complaint: consultation HPI Narrative: Pt referred by PCP due to her stopping her cymbalta due to manic attacks, night sweats, and dizziness back in August. She reported her bupropion has been ineffective in managing depression, but noted increased symptoms following the recent passing of her ex . Dr. Melara recently changed her to lexapro, but is looking for an evaluation for medication optimization. Currently receiving outpatient therapy through [facility]. Pt reports very derpressed and anxious. She is very lonely. 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 her exhusband in October. This was very difficult for her due to extended family issues. 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 Her PHQ9= 21 and her GAD7=15. She has an intake at [facility] today for treatment. Past Psychiatric History: long hx of outpt tx for depression and anxiety; trials of lexarpo, wellbutrin, cymbalta and zoloft; reports zoloft worked the best. Subjective Subjective Subjective Medication Compliance: Yes Side effects from medications: No Review of Systems Medical Review of Systems: unchanged Mental Status Exam Mental Status Exam Patient Appearance: Well Grooomed Patient Orientation: Person, Place, Time and Situation Level of Consciousness: Awake and Appropriate Patient Behavior: Appropriate and Talkative Mood Description: Anxious and Sad Affect Description: Anxious and Sad Patient Cognition Impaired: No Ability to Follow Directions: Good Speech Pattern: Clear and Coherent Memory Description: Intact Hallucinations: None Delusions: Not Present Thought Process: Intact Thought Content: positive for Intact Judgement: Fair Assessment and Plan Assessment & Plan (1) Major depression: Status: Acute Code(s): F32.9 - Major depressive disorder, single episode, unspecified (2) Generalized anxiety disorder: Status: Acute Code(s): F41.1 - Generalized anxiety disorder Plan follow up with [facility] for therapy and medications stop lexapro and restart zoloft 50mg daily with food x 14 days then increase to 100mg daily with food. continue clonazepam 2 mg at bedtime Medications: New sertraline (Zoloft) take 1/2 tab with food daily x 14 days then take 1 tablet daily with food orally daily; 30 tabs 1RF Discontinued escitalopram oxalate Discontinued Reason: Patient no longer taking 5 mg PO DAILY 30 tabs 1RF F32.9 - Major depressive disorder, single episode, unspecified Counseling and coordination of Care Pt. Self Management counseling: Maintenance-social rhythm, Nutrition education and improvement, Sleep hygiene, General coping skills and Problem solving Medication management counseling: Effectiveness, Side effects, Dosing range, Duration, Drug interaction and Adherence Diagnosis and Prognosis Counseling: Accuracy of diagnosis, Prognosis over time, Impact of diagnosis on life functions, Impact of family relationship, Problematic behaviors secondary to diagnosis and Adequacy of current interventions Details: I spent 75 minutes reviewing the record, seeing the patient and documenting in the medical record. Counseling provided to the patient/caregiver as outlined below. Addressed patient/caregiver concerns regarding current medication regime including effective adherence. Addressed patient/caregiver concerns regarding diagnosis and prognosis including accuracy of diagnosis, prognosis over time, impact of diagnosis. Addressed patient/caregiver concerns regarding impact of recent stressors. [facility] Medical History (Updated 11/08/24 @ 17:30 by Alexis Melara MD) Age-related osteoporosis without current pathological fracture Medicare annual wellness visit, subsequent Breast cancer screening by mammogram Non-insulin dependent type 2 diabetes mellitus Anemia IBS (irritable bowel syndrome) Osteoarthritis Osteopenia Skin cancer, basal cell Chronic renal insufficiency Patellofemoral instability of right knee with pain Annual physical exam Tinea corporis Foul smelling urine Osteoarthritis, knee Generalized anxiety disorder Bilateral hand numbness Annual physical exam Fatigue Right knee meniscal tear Osteoarthritis of right knee Internal derangement of right knee Knee effusion, right Right knee injury Sprain of right knee Osteoporosis Cervical compression fracture PTSD (post-traumatic stress disorder) Rectocele Type 2 diabetes mellitus with hyperglycemia Hypercholesterolemia Bladder prolapse Obesity (BMI 30-39.9) Anxiety and depression Vitamin D deficiency Hypertension Surgical History Hx of left knee surgery Hx of meniscectomy of right knee H/O colonoscopy History of bladder surgery History of section History of bilateral cataract extraction History of hysterectomy with bilateral oophorectomy Family History Mother Heart attack Father No problems noted. Sister Heart abnormality Social History Housing: Apartment Are you a primary healthcare interpreter to a significant other at home: No Do you presently have visiting nurse or other home services: No Alcohol intake: never Patient Tobacco Use Status: Never used Tobacco Tobacco use type: Cigarette e-Cigarette/Vaping Use: Never Used Second Hand Smoke Exposure: No service: No Current occupational status: retired Current occupation: Right Handed Current occupational exposures/hazards: No Cognitive needs: No Hearing needs: No Vision needs: Yes Social History: lives alone. 4 adult children and 9 grandchildren. Substance History: none Trauma History: single parenting and pandemic very stressful for pt Coding Level of Care Code Psych Diag Eval w/Med (02550) Diagnoses Major depression F32.9 Generalized anxiety disorder F41.1
--- OUTSIDE RECORDS SUMMARY | 2024-11-26 17:04 | XMS_ITS | Patient Health Record ---
Author Organization [facility] Address [address] [place] [address] Care Team Providers Care Greaser And Oiler Name Role Phone Shelby Melaramiladymery Primary Care Provider Brigitte Mcnamara Unavailable [phone] Allergies Allergen (clinical drug ingredient) Drug/Non Drug [...] W/U Status Risk Notes Problem Plantar wart ([id number]) Plantar wart (B07.0) Active confirmed Problem Polyneuropathy due to type 2 diabetes mellitus (715304177) Type 2 diabetes mellitus with diabetic polyneuropathy (E11.42) Active confirmed Plan Of Treatment Pending Test Test Name Order Date 01525-Pyeikerx Plate 12/05/2013 75005-PCRS SKIN LESIONS, OVER 4 12/06/19 14 [id number]-[id number] NAIL(S) 12/05/2013 Insurance Providers Payer Name Payer Address Payer Phone Subscriber Number Group Number Insured Name Patient Relationship to Insured Coverage Start Date Coverage End Date BlueCare 65 Medicare Preferred [address] [place] [address] [phone] [id number] Michelle Garcia Self - patient is [...]
== END 2024-11-26 15:07 | disposition home or self-care (01) ==
LOC: HO.HOP 14:00
PROVIDERS: PCP Internal Medicine; Visit Provider Clinical Nurse Specialist Psychiatric/Mental Health
DX: F32.9 Major depressive disorder, single episode, unspecified (principal); F41.1 Generalized anxiety disorder
CPT/HCPCS: 90792

== ENCOUNTER → 2024-11-26 14:00 | Outpatient (BNVA) | payer MEDICARE, SELFPAY | PROVIDERS: PCP Internal Medicine; Visit Provider Clinical Nurse Specialist Psychiatric/Mental Health | DX: F32.9 Major depressive disorder, single episode, unspecified (principal); F41.1 Generalized anxiety disorder | CPT/HCPCS: 90792 ==

== ENCOUNTER 2025-01-21 09:03 | Outpatient (AMB) | payer MEDICARE, SELFPAY ==
--- NOTE | 2025-01-21 09:05 | MHC.PC.OV ---
Vital Signs 01/21/25 09:06 Height 5 ft 3 in Weight 167 lb BMI 29.6 BP 114/72 Blood Pressure Location Lt brachial Position Sitting Pulse 75 Pulse Source Pulse Oximeter Pulse Oximetry (%) 97 Oxygen Delivery Method Room Air Intake Visit Reasons: DM Intake Note: Requesting script for 90 day supply of sertraline to the mail order [facility]. Allergies atorvastatin [From Lipitor] Allergy (Intermediate, Verified 01/21/25 09:07) Leg cramps simvastatin Allergy (Intermediate, Verified 01/21/25 09:07) leg cramps meperidine [From Demerol] Adverse Reaction (Intermediate, Verified 01/21/25 09:07) Vomiting, passed out celecoxib [From Celebrex] Adverse Reaction (Mild, Verified 01/21/25 09:07) Over active bladder Tobacco use date assessed: 10/15/24 Fall risk assessment: No Falls in past year Last assessed Fall Risk: 01/21/25 Dental Screening Dental Screen Date: 10/15/24 HPI DM HPI Details under [facility]- 3 hours a week help at home. 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 Annual physical exam Tinea corporis Foul smelling urine Osteoarthritis, knee Generalized anxiety disorder Bilateral hand numbness Annual physical exam Fatigue Right knee meniscal tear Osteoarthritis of right knee Internal derangement of right knee Knee effusion, right Right knee injury Sprain of right knee Osteoporosis Cervical compression fracture PTSD (post-traumatic stress disorder) Rectocele Type 2 diabetes mellitus with hyperglycemia Hypercholesterolemia Bladder prolapse Obesity (BMI 30-39.9) Anxiety and depression Vitamin D deficiency Hypertension Surgical History Hx of left knee surgery Hx of meniscectomy of right knee H/O colonoscopy History of bladder surgery History of section History of bilateral cataract extraction History of hysterectomy with bilateral oophorectomy Family History Mother Heart attack Father No problems noted. Sister Heart abnormality Social History Housing: Apartment Are you a primary career transition specialist to a significant other at home: No Do you presently have visiting nurse or other home services: No Alcohol intake: never Patient Tobacco Use Status: Never used Tobacco Tobacco use type: Cigarette e-Cigarette/Vaping Use: Never Used Second Hand Smoke Exposure: No service: No Current occupational status: retired Current occupation: Right Handed Current occupational exposures/hazards: No Cognitive needs: No Hearing needs: No Vision needs: Yes Questionnaire PHQ-9 Over the last 2 weeks, how often have you been bothered by any of the following problems? 1. Little interest or pleasure in doing things: several days 2. Feeling down, depressed, or hopeless: several days 3. Trouble falling or staying asleep, or sleeping too much: not at all 4. Feeling tired or having little energy: several days 5. Poor appetite or overeating: several days 6. Feeling bad about yourself - or that you are a failure or have let yourself or your family down: not at all 7. Trouble concentrating on things, such as reading the newspaper or watching television: several days 8. Moving or speaking so slowly that other people could have noticed. Or the opposite - being so fidgety or restless that you have been moving around a lot more than usual: not at all 9. Thoughts that you would be better off or of hurting yourself in some way: not at all Total score: 5 Depression Screening Interpretation: Positive Depression Screening Done: Yes 67916 - PHQ-9 Billing: Yes Source: Developed by Drs. Yuriy Noe, Lor Duncan, Almas Bailey and colleagues, with an educational kit from [employer]. Thrive Questionnaire Date Thrive assessed: 01/15/25 I am a: Patient What is your living situation today?: I have a steady place to live Within the past 12 months, did the food you bought not last and you didn't have the money to get more?: Never true Within the past 12 months, did you worry whether your food would run out before you got money to buy more?: Never true Do you have trouble paying for medicines?: No Do you have trouble getting transportation to medical appointments?: No Do you have trouble paying your heating and electricity bill?: No Do you have trouble taking care of your child, family member or friend?: No Do you have trouble with day-to-day activities such as bathing, preparing meals, shopping, managing finances, etc.?: No Are you currently unemployed and looking for a job?: No Are you interested in more education?: No Please select the resources that you would like help with: None Currently or been in a relationship where the following occur: I choose not to answer THRIVE Score: 0 AUDIT C Alcohol Use Questionnaire (AUDIT-C) 1. How often do you have a drink containing alcohol?: Never Total Score: 0 VIVIAN-7 AMB Questionnaire VIVIAN-7 Date VIVIAN - 7 assessed: 01/21/25 Feeling nervous, anxious, or on edge: 3 = Nearly every day Not being able to stop or control worryin = Nearly every day Worrying too much about different things: 3 = Nearly every day Trouble relaxin = Nearly every day Being so restless that it is hard to sit still: 1 = Several days Becoming easily annoyed or irritable: 1 = Several days Feeling afraid as if something awful might happen: 1 = Several days Total VIVIAN-7 score (0-4 normal; 5-9 mild; 10-14 moderate; 15-21 severe): 15 Source: Developed by Drs. Yuriy Noe, Lor Duncan, Almas Bailey and colleagues, with an educational kit from [employer]. VIVIAN-7 Assessment Billing VIVIAN-7 Assessment Tool: VIVIAN-7 Assessment 34339 Physical exam (Primary Care) Vital Signs: Last Vital Signs Pulse 75 01/21/25 09:06 BP 114/72 01/21/25 09:06 Pulse Ox 97 01/21/25 09:06 Oxygen Delivery Method Room Air 01/21/25 09:06 BMI result Body Mass Index 29.6 Tobacco/Smoking Status: Tobacco use Status Tobacco use date assessed 10/15/24 01/21/25 09:08 Patient Tobacco Use Status Never used Tobacco 01/21/25 09:08 Tobacco use type Cigarette 01/21/25 09:08 e-Cigarette/Vaping Use Never Used 01/21/25 09:08 PHQ-9: PHQ-9 Score PHQ-9: Total score 5 01/21/25 10:08 Depression Screening Interpretation: Positive Thrive Assessment: Date of Thrive Assessment Date Thrive assessed 01/15/25 01/21/25 09:08 Currently or been in a relationship where the following occur: I choose not to answer Const General: alert; No acute distress Eyes Conjunctivae: conjunctivae normal Resp Auscultation: clear to auscultation bilaterally Cardio Rate: regular rate Rhythm: regular rhythm GI Inspection: Yes normal to inspection Extrem General: Yes normal to inspection and No edema Results AMB Hemoglobin A1c AMB Hemoglobin A1c 5.6 % Last Edit by Sharron Siddiqui CMA on 01/21/25 09:23 Immunizations Tenivac (PF) 5 Lf unit-2 Lf unit/0.5 mL intramuscular suspension Performing Provider: Alexis Melara MD [facility] Administered by: Sharron Siddiqui CMA on 01/21/25 10:09 Dose Route Admin Location Dispensed Lot Number Expiration Date NDC Incident Response Manager 0.5 mL IM Left Deltoid 0.5 mL [id number] 11/16/26 [id number] [employer] VIS Given Date VIS Provided VIS Publication Date 01/21/25 Single Vaccine 21 Eligibility Eligibility Date Funding Source Not [facility] Eligible 01/21/25 Private Results Reviewed Results Reviewed: Laboratory Last Values Hgb A1c (Clinic) 5.6 % (4.0-6.0) 01/21/25 09:08 Coding Level of Care Code Est Pt Level 4 (72973) Complex EM visit Add On G2211 Diagnoses Type 2 diabetes mellitus with hyperglycemia E11.65 Hypercholesterolemia E78.00 Renal insufficiency N28.9 Major depression F32.9 Additional Codes VIVIAN-7 Assessment Billing - VIVIAN-7 Assessment Tool: VIVIAN-7 Assessment 41677 ([id number]) PHQ-9 - 07273 - PHQ-9 Billing: Yes ([id number]) Assessment & Plan Assessment & Plan (1) Type 2 diabetes mellitus with hyperglycemia: Comment: borderline per patient-taking Metformin once/day-does not check at home-last A1C-5.8% 05/2022. Dr. Strauss Code(s): E11.65 - Type 2 diabetes mellitus with hyperglycemia Category: Medical Plan: Decrease the amount of carbohydrate intake, pasta, bread, rice and potatoes are all sugar and that is aside from all the sweet stuff, remember that fruits are good but they are Sweet also. hemoglobin A1c goal of less than 7 patient is on metformin 500 mg at bedtime (2) Hypercholesterolemia: Comment: cannot tolerate statins Code(s): E78.00 - Pure hypercholesterolemia, unspecified Category: Medical Plan: Avoid fried foods, chicken skin, eggs, butter margarine, pastries and meat. Be it pork or beef they have a lot of cholesterol patient will need repeat testing June was the last blood work (3) Renal insufficiency: Code(s): N28.9 - Disorder of kidney and ureter, unspecified Category: Medical Plan: Keep well hydrated avoid NSAID (4) Major depression: Code(s): F32.9 - Major depressive disorder, single episode, unspecified Category: Medical Plan: Patient has been placed on sertraline and lorazepam Plan History of Present Illness The patient is a 79-year-old female presenting with a follow-up for chronic disease management and medication review. She has a notable history of type 2 diabetes mellitus, with recent reports of improved hemoglobin A1c from 6.4 to 5.6. Despite maintaining her A1c levels, she has an elevated LDL cholesterol that requires closer monitoring. She has been dealing with increased depressive symptoms following a recent family , affecting medication adherence and causing a temporary lapse in her psychiatric treatment, resulting in weight loss and emotional distress. Her treatment has been adjusted, transitioning from escitalopram to sertraline, with clonazepam continued for anxiety management. The patient has reported improvements since initiating therapy at [facility] post-therapy at [facility] discontinued. Additionally, she experiences perennial postoperative knee pain after a replacement surgery in September 2022, and has faced ongoing financial issues related to medical bills. Her health maintenance screenings, including mammogram and bone density, are up to date, though a colonoscopy is still due. She has been reassured about her skin cancer follow-up, finding no new issues. Health Maintenance - Mammograms and bone density tests are up to date. - Due for colonoscopy screening. - Hemoglobin A1c level is 5.6. - LDL cholesterol is elevated and requires management. - Skin cancer screening conducted, with no new abnormalities. - Blood pressure is controlled. Social History - Receives assistance through [employer], including therapy and housing assistance. - Financial stress due to medical bills and ongoing collections for knee surgery costs. - Depression linked to a family and adjustment disorder has required therapeutic intervention. - Episcopal evangelical affiliation which aligns with her therapist's background. - Experiences knee pain post-replacement surgery and financial issues. Review of Systems - General: Reports 5-pound weight loss. - Psychiatric: Reports ongoing depressive symptoms and stress; recent family bereavement. - Musculoskeletal: Reports postoperative knee pain. - Endocrine: Denies hyperglycemia; has diabetes with improved A1c levels. - Cardiovascular: Denies hypertension; reports good blood pressure control. - Dermatology: Denies new skin lesions; follows up on past skin cancer. Physical Exam Results - Labs: Hemoglobin A1c at 5.6 in June 2024; elevated LDL cholesterol. - Kidney function: Elevated creatinine at 1.42; normal electrolytes. - Bloodwork in June 2024 shows normal complete blood count. Plan The management plan includes monitoring and treatment for type 2 diabetes mellitus with ongoing blood glucose surveillance and maintaining the current dosage of metformin. For hypercholesterolemia, emphasis was placed on the need for continued monitoring and potential intervention if elevated cholesterol persists. The patient is advised on medication adherence with sertraline and clonazepam. Continued follow-up with therapy at [facility] for depressive symptoms is endorsed. Vaccination needs were discussed, and a tetanus shot is considered if she wishes, while advising appropriate follow-up for overdue colonoscopy. Patient was informed and verbally consented to the use of an ambient scribe for clinic note documentation during this visit. Discussion Notes During the discussion, we covered the patient's ongoing chronic disease management and medication review. I informed her of the necessity to monitor her A1c regularly due to her diabetes, and we acknowledged the improvement made thus far. We reviewed the treatment adjustment to sertraline for her depression and advised continued use alongside clonazepam for anxiety symptoms. We discussed cholesterol management and agreed on monitoring it closely during follow-up visits. I provided reassurance regarding her improved A1c levels and advised follow-up with her primary care for the overdue colonoscopy. Additionally, with the financial stress due to collections and billing, I explained that while challenging, it is important to continue communicating with billing services. I encouraged her to reach out via the patient portal for medication refills and provided guidance on its use. Patient Instructions - Continue metformin as prescribed at bedtime. - Follow up with therapy at [facility] for depression treatment. 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 - Monitor blood glucose levels regularly. - Arrange for a colonoscopy as it is overdue. - Contact the office for medication refills using the patient portal. - Keep records of conversations with billing departments and [employer] for support. - Consider a tetanus vaccination. - Maintain a healthy diet and activity level to support cardiovascular health. Orders: Orders AMB Hemoglobin A1c Today Z13.9 - Encounter for screening, unspecified Td Immunization Today Z23 - Encounter for immunization Medications: Refilled sertraline (Zoloft) 100 mg PO DAILY 90 tabs 1RF F32.9 - Major depressive disorder, single episode, unspecified
[2025-01-21 09:06] VITALS: BP 114/72; PULSE 75; O2SAT 97; BMI 29.6
--- OUTSIDE RECORDS SUMMARY | 2025-01-21 09:46 | XMS_ITS | Patient Health Record ---
Author Organization [facility] Address [address] [place] [address] Care Team Providers Care Anime Designer Name Role Phone Shelby Melaramiladymery Primary Care Provider Brigitte Mcnamara Unavailable [phone] Allergies Allergen (clinical drug ingredient) Drug/Non Drug [...] W/U Status Risk Notes Problem Plantar wart ([id number]) Plantar wart (B07.0) Active confirmed Problem Polyneuropathy due to type 2 diabetes mellitus ([id number]) Type 2 diabetes mellitus with diabetic polyneuropathy (E11.42) Active confirmed Plan Of Treatment Pending Test Test Name Order Date [id number] Plate 12/05/2013 [id number] SKIN LESIONS, OVER 4 12/06/19 14 [id number] NAIL(S) 12/05/2013 Insurance Providers Payer Name Payer Address Payer Phone Subscriber Number Group Number Insured Name Patient Relationship to Insured Coverage Start Date Coverage End Date [employer] 65 Medicare Preferred [address] [place] [address] [phone] [id number] Michelle Garcia Self - patient is [...]
== END 2025-01-21 10:17 | disposition home or self-care (01) ==
LOC: HO.HMCH 09:03
PROVIDERS: PCP Internal Medicine; Visit Provider Internal Medicine
DX: E11.65 Type 2 diabetes mellitus with hyperglycemia (principal); E78.00 Pure hypercholesterolemia, unspecified; N28.9 Disorder of kidney and ureter, unspecified; F32.9 Major depressive disorder, single episode, unspecified; Z23 Encounter for immunization; Z13.9 Encounter for screening, unspecified

== ENCOUNTER → 2025-01-21 09:03 | Outpatient (BNVA) | payer MEDICARE, SELFPAY | PROVIDERS: PCP Internal Medicine; Visit Provider Internal Medicine | DX: E11.65 Type 2 diabetes mellitus with hyperglycemia (principal); Z23 Encounter for immunization; E78.00 Pure hypercholesterolemia, unspecified; N28.9 Disorder of kidney and ureter, unspecified; F32.9 Major depressive disorder, single episode, unspecified; Z79.84 Long term (current) use of oral hypoglycemic drugs | CPT/HCPCS: 83036; 90471; 90714; 96127; 99212 ==

== ENCOUNTER 2025-05-26 08:01 | Outpatient (REF) | payer MEDICARE, SELFPAY ==
[2025-05-26 14:03] LABS: MANUAL DIFF FLAG NO
[2025-05-26 14:04] LABS: Hematocrit 35.8 % (37.0-47.0); Hemoglobin 11.6 g/dl (12.0-16.0); Imm Gran Abs Auto 0.04 X10*3/uL (0.00-0.03); Imm Gran Pct Auto 0.4 % (0.0-0.4); Lymphocytes Absolute Auto 1.5 X10*3/uL (1.2-4.9); Mean Corpuscular HGB Conc 32.4 g/dl (31.0-35.0); Mean Corpuscular Hemoglobin 31.1 pg (27.0-33.0); Mean Corpuscular Volume 96.0 fL (80.0-98.0); NRBC Abs Auto 0.000 X10*3/uL (0.0-0.012); NRBC Pct Auto 0.0 /100WBC (0.0-0.2); Platelet Count 271 X10*3/uL (160-400); Red Blood Count 3.73 X10*6/uL (4.20-5.50); White Blood Count 8.9 X10*3/uL (4.8-10.8)
[2025-05-26 14:23] LABS: Hemoglobin A1C 137.8695 umol/L; Total Hemoglobin (HGBA1C) 3078.1758 umol/L
[2025-05-26 14:46] LABS: Microalbum/Creatinine Ratio Ur 13.8 ug/mg cr (<30)
[2025-05-26 14:51] LABS: Alanine Aminotransferase 13 U/L (0-31); Albumin Level 4.2 g/dL (3.5-5.0); Alkaline Phosphatase 72 U/L (39-117); Anion Gap 14 (12-20); Aspartate Amino Transferase 26 U/L (5-31); Blood Urea Nitrogen 20 mg/dL (9-16); Calcium 8.9 mg/dL (8.4-10.2); Carbon Dioxide 25 mmol/L (22-29); Chloride 108 mmol/L (96-108); Cholesterol 165 mg/dL (<200); Estimated Glomerular Filt Rate 38; HDL Cholesterol 36 mg/dL (>40); Potassium 5.5 mmol/L (3.3-5.1); Sodium 141 mmol/L (135-145); Total Protein 6.7 g/dL (6.5-8.0); Triglycerides 147 mg/dL (<150)
[2025-05-26 14:54] LABS: Folate 12.4 ng/mL (> or = 4.0); Vitamin B12 374 pg/mL (200-900)
[2025-05-26 15:15] LABS: Free T4 (Free Thyroxine) 0.86 ng/dL (0.71-1.85); Thyroid Stimulating Hormone 2.29 uIU/mL (0.32-4.0)
== END 2025-05-26 08:02 | disposition home or self-care (01) ==
LOC: HO.HMGCLDS 08:01
PROVIDERS: PCP Internal Medicine; Visit Provider Internal Medicine
DX: E11.65 Type 2 diabetes mellitus with hyperglycemia (principal); E78.00 Pure hypercholesterolemia, unspecified
CPT/HCPCS: 36415; 80053; 80061; 82043; 82570; 82607; 82746; 83036; 84439; 84443; 85025

== ENCOUNTER 2025-05-27 09:22 | Outpatient (AMB) | payer MEDICARE, SELFPAY ==
--- NOTE | 2025-05-27 09:39 | A.OFFPC_ITS ---
Vital Signs 05/27/25 09:40 Height 5 ft 3 in Weight 170 lb BMI 30.1 BP 122/62 Blood Pressure Location Lt brachial Position Sitting Pulse 56 Pulse Source Pulse Oximeter Pulse Oximetry (%) 98 Oxygen Delivery Method Room Air Intake Visit Reasons: DM, Depression Allergies atorvastatin (From Lipitor) Allergy (Intermediate, Verified 01/21/25 09:07) Leg cramps simvastatin Allergy (Intermediate, Verified 01/21/25 09:07) leg cramps meperidine (From Demerol) Adverse Reaction (Intermediate, Verified 01/21/25 09:07) Vomiting, passed out celecoxib (From Celebrex) Adverse Reaction (Mild, Verified 01/21/25 09:07) Over active bladder Tobacco use date assessed: 10/15/24 Dental Screening Dental Screen Date: 10/15/24 [facility] Medical History (Updated 05/27/25 @ 10:21 by Alexis Melara MD) Age-related osteoporosis without current pathological fracture Medicare annual wellness visit, subsequent Breast cancer screening by mammogram Non-insulin dependent type 2 diabetes mellitus Anemia IBS (irritable bowel syndrome) Osteoarthritis Osteopenia Skin cancer, basal cell Chronic renal insufficiency Patellofemoral instability of right knee with pain Annual physical exam Tinea corporis Foul smelling urine Osteoarthritis, knee Generalized anxiety disorder Bilateral hand numbness Annual physical exam Fatigue Right knee meniscal tear Osteoarthritis of right knee Internal derangement of right knee Knee effusion, right Right knee injury Sprain of right knee Osteoporosis Cervical compression fracture PTSD (post-traumatic stress disorder) Rectocele Type 2 diabetes mellitus with hyperglycemia Hypercholesterolemia Bladder prolapse Obesity (BMI 30-39.9) Anxiety and depression Vitamin D deficiency Hypertension Surgical History Hx of left knee surgery Hx of meniscectomy of right knee H/O colonoscopy History of bladder surgery History of section History of bilateral cataract extraction History of hysterectomy with bilateral oophorectomy Family History Mother Heart attack Father No problems noted. Sister Heart abnormality Social History Housing: Apartment Are you a primary care technician to a significant other at home: No Do you presently have visiting nurse or other home services: No Alcohol intake: never Patient Tobacco Use Status: Never used Tobacco Tobacco use type: Cigarette e-Cigarette/Vaping Use: Never Used Second Hand Smoke Exposure: No service: No Current occupational status: retired Current occupation: Right Handed Current occupational exposures/hazards: No Cognitive needs: No Hearing needs: No Vision needs: Yes Questionnaire Thrive Questionnaire Date Thrive assessed: 01/15/25 I am a: Patient What is your living situation today?: I have a steady place to live Within the past 12 months, did the food you bought not last and you didn't have the money to get more?: Never true Within the past 12 months, did you worry whether your food would run out before you got money to buy more?: Never true Do you have trouble paying for medicines?: No Do you have trouble getting transportation to medical appointments?: No Do you have trouble paying your heating and electricity bill?: No Do you have trouble taking care of your child, family member or friend?: No Do you have trouble with day-to-day activities such as bathing, preparing meals, shopping, managing finances, etc.?: No Are you currently unemployed and looking for a job?: No Are you interested in more education?: No Please select the resources that you would like help with: None Currently or been in a relationship where the following occur: I choose not to answer THRIVE Score: 0 VIVIAN-7 AMB Questionnaire VIVIAN-7 Date VIVIAN - 7 assessed: 01/21/25 Source: Developed by Drs. Yuriy Noe, Lor Duncan, Almas Bailey and colleagues, with an educational kit from [email or web address]. Physical exam (Primary Care) Vital Signs: Last Vital Signs Pulse 56 05/27/25 09:40 BP 122/62 05/27/25 09:40 Pulse Ox 98 05/27/25 09:40 Oxygen Delivery Method Room Air 05/27/25 09:40 BMI result Body Mass Index 30.1 Tobacco/Smoking Status: Tobacco use Status Tobacco use date assessed 10/15/24 05/27/25 09:42 Patient Tobacco Use Status Never used Tobacco 05/27/25 09:42 Tobacco use type Cigarette 05/27/25 09:42 e-Cigarette/Vaping Use Never Used 05/27/25 09:42 Thrive Assessment: Date of Thrive Assessment Date Thrive assessed 01/15/25 05/27/25 09:42 Currently or been in a relationship where the following occur: I choose not to answer Const General: alert; No acute distress Eyes Conjunctivae: conjunctivae normal Resp Auscultation: clear to auscultation bilaterally Cardio Rate: regular rate Rhythm: regular rhythm GI Inspection: Yes normal to inspection Extrem General: Yes normal to inspection and No edema Coding Level of Care Code Est Pt Level 4 (47936) Diagnoses Type 2 diabetes mellitus with hyperglycemia E11.65 Hypercholesterolemia E78.00 Obesity (BMI 30-39.9) E66.9 Anemia D64.9 Generalized anxiety disorder F41.1 Assessment & Plan Assessment & Plan (1) Type 2 diabetes mellitus with hyperglycemia: Comment: borderline per patient-taking Metformin once/day-does not check at home-last A1C-5.8% 05/2022. Dr. Strauss Code(s): E11.65 - Type 2 diabetes mellitus with hyperglycemia Category: Medical Plan: Decrease the amount of carbohydrate intake, pasta, bread, rice and potatoes are all sugar and that is aside from all the sweet stuff, remember that fruits are g ood but they are Sweet also. Hemoglobin A1c goal of less than 7.0 on metformin 500 mg once a day (2) Hypercholesterolemia: Comment: cannot tolerate statins Code(s): E78.00 - Pure hypercholesterolemia, unspecified Category: Medical Plan: Avoid fried foods, chicken skin, eggs, butter margarine, pastries and meat. Be it pork or beef they have a lot of cholesterol LDL goal of less than 100 and triglyceride of less than 150 on rosuvastatin 40 mg once a day (3) Obesity (BMI 30-39.9): Code(s): E66.9 - Obesity, unspecified Category: Medical Plan: Diet and exercise (4) Anemia: Code(s): D64.9 - Anemia, unspecified Category: Medical Plan: Continue to monitor (5) Generalized anxiety disorder: Comment: Declined counseling referral April 2022, [facility](05/2025) Code(s): F41.1 - Generalized anxiety disorder Category: Medical Plan: Continue with sertraline and clonazepam as needed Plan History of Present Illness The patient is a 79-year-old female presenting for a follow-up visit. The patient has a history of obesity with a recent 3-pound weight gain. She also has diabetes mellitus and hypercholesterolemia, which are being monitored. The patient has generalized anxiety disorder and major depressive disorder, exacerbated by recent personal events, including the of her ex-. She reports a breakdown earlier this year and has been struggling with depression and anxiety, affecting her daily activities and motivation. The patient has osteopenia and is due for a bone density test this month. She has declined a colonoscopy but is up to date with her mammogram and eye exam. The patient has a history of basal cell carcinoma and intertrigo, for which she was treated with antifungal cream. Recent blood work showed mild anemia with a hemoglobin level of 11.6 g/dL. Health Maintenance - Mammogram is up to date - Bone density test is due this month - Eye exam is up to date with no complications of retinopathy Social History - The patient lives in senior housing and reports limited mobility due to leg and back pain. - She receives assistance from [employer] and has a therapist at [facility], although she finds the sessions insufficient. - The patient has a history of volunteering but has been inactive since the COVID-19 pandemic. - She reports a lack of motivation and social engagement, contributing to her depressive symptoms. Review of Systems - General: Reports fatigue and lack of motivation. - Musculoskeletal: Reports leg and back pain. - Psychiatric: Reports depression and anxiety, exacerbated by recent personal events. - Hematologic: Reports mild anemia. Physical Exam Results - Labs: Mild anemia with hemoglobin level of 11.6 g/dL - Labs: Blood sugar level at 6.4% indicating controlled diabetes - Labs: Cholesterol level at 100 mg/dL, improved but still above target Plan Patient was informed and verbally consented to the use of an ambient scribe for clinic note documentation during this visit. 1. Obesity The patient is advised to engage in regular physical activity, including chair exercises, to improve mobility and manage weight. Nutritional counseling is recommended to encourage healthy eating habits. 2. Diabetes Mellitus The patient's blood sugar level is at 6.4%, indicating controlled diabetes. Continued monitoring of blood glucose levels and adherence to dietary recommendations are advised. 3. Hypercholesterolemia The patient's cholesterol level is at 100 mg/dL, which is an improvement but still above the target. Dietary modifications and regular monitoring are recommended to further reduce cholesterol levels. 4. Generalized Anxiety Disorder The patient is encouraged to continue therapy sessions and consider medication adjustments if current treatment is ineffective. 5. Major Depressive Disorder The patient is advised to maintain regular therapy sessions and explore medication adjustments to better manage depressive symptoms. 6. Osteopenia A bone density test is due this month to assess the progression of osteopenia. 7. Basal Cell Carcinoma The patient should continue regular dermatology follow-ups for monitoring and management of basal cell carcinoma. 8. Intertrigo The patient was treated with antifungal cream for intertrigo and should monitor for any recurrence. 9. Mild Anemia The patient has mild anemia with a hemoglobin level of 11.6 g/dL, and further evaluation may be necessary if symptoms persist. Discussion Notes During the visit, we discussed the importance of managing obesity through regular physical activity and nutritional counseling. We reviewed the patient's diabetes management, noting that her blood sugar level is controlled at 6.4%, and emphasized the need for continued monitoring and dietary adherence. The patient's cholesterol level has improved to 100 mg/dL, and we discussed dietary modifications to further reduce it. We addressed the patient's anxiety and depression, recommending continued therapy and potential medication adjustments. The patient is due for a bone density test to monitor osteopenia, and we discussed the importance of regular dermatology follow-ups for basal cell carcinoma. Patient Instructions - Engage in regular physical activity, including chair exercises, to improve mobility and manage weight. - Follow dietary recommendations to manage diabetes and reduce cholesterol levels. - Continue therapy sessions and discuss medication adjustments with your therapist if needed. - Schedule and complete the bone density test this month. - Attend regular dermatology follow-ups for basal cell carcinoma monitoring. Orders: Referrals Psychiatry Outpatient Consultation Service F32.9 - Major depressive disorder, single episode, unspecified
[2025-05-27 09:40] VITALS: BP 122/62; PULSE 56; O2SAT 98; BMI 30.1
--- OUTSIDE RECORDS SUMMARY | 2025-05-27 10:48 | XMS_ITS | Patient Health Record ---
Author Organization [facility] Address [address] [place] [address] Care Team Providers Care Solar Project Manager Name Role Phone Shelby Melaramiladymery Primary Care Provider Brigitte Mcnamara Unavailable [phone] Allergies Allergen (clinical drug ingredient) Drug/Non Drug [...] with neuropathy, foot deformity and preulcerative skin lesions; Duration: . 12/05/2013 Active Lisinopril 10 MG 1 [...] Vaccine Route Administration Date Status Comme nts Influenza Unknown 06/18/2019 Administered Influenza Unknown 07/10/2020 Administered COVID-19 Moderna Vaccine Unknown 10/21/2020 Administered Second Dose: 11/08 Social History Tobacco Use: Social History Observation [...] W/U Status Risk Notes Problem Plantar wart (51926571) Plantar wart (B07.0) Active confirmed Problem Polyneuropathy due to type 2 diabetes mellitus (563918074) Type 2 diabetes mellitus with diabetic polyneuropathy (E11.42) Active confirmed Plan Of Treatment Pending Test Test Name Order Date [id number] Plate 12/05/2013 [id number] SKIN LESIONS, OVER 4 12/06/19 14 [id number] NAIL(S) 12/05/2013 Insurance Providers Payer Name Payer Address Payer Phone Subscriber Number Group Number Insured Name Patient Relationship to Insured Coverage Start Date Coverage End Date BlueCare 65 Medicare Preferred [address] [place] [address] [phone] [id number] Michelle Garcia Self - patient is [...]
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
== END 2025-05-27 10:53 | disposition home or self-care (01) ==
LOC: HO.HMCH 09:23
PROVIDERS: PCP Internal Medicine; Visit Provider Internal Medicine
DX: E11.65 Type 2 diabetes mellitus with hyperglycemia (principal); E78.00 Pure hypercholesterolemia, unspecified; Z68.30 Body mass index [BMI] 30.0-30.9, adult; E66.9 Obesity, unspecified; D64.9 Anemia, unspecified; F41.1 Generalized anxiety disorder

== ENCOUNTER → 2025-05-27 09:22 | Outpatient (BNVA) | payer MEDICARE, SELFPAY | PROVIDERS: PCP Internal Medicine; Visit Provider Internal Medicine | DX: E11.65 Type 2 diabetes mellitus with hyperglycemia (principal); F32.A Depression, unspecified; E78.00 Pure hypercholesterolemia, unspecified; E66.9 Obesity, unspecified; D64.9 Anemia, unspecified; F41.1 Generalized anxiety disorder; M85.80 Other specified disorders of bone density and structure, unspecified site; L30.4 Erythema intertrigo; Z85.828 Personal history of other malignant neoplasm of skin; Z68.30 Body mass index [BMI] 30.0-30.9, adult | CPT/HCPCS: 99212 ==

== ENCOUNTER 2025-06-12 09:59 | Outpatient (AMB) | payer MEDICARE, SELFPAY ==
--- NOTE | 2025-06-12 10:12 | MHC.OFFVISPS ---
Intake Intake Visit Reasons: consultation Bank Cashier Required: No Allergies atorvastatin (From Lipitor) Allergy (Intermediate, Verified 01/21/25 09:07) Leg cramps simvastatin Allergy (Intermediate, Verified 01/21/25 09:07) leg cramps meperidine (From Demerol) Adverse Reaction (Intermediate, Verified 01/21/25 09:07) Vomiting, passed out celecoxib (From Celebrex) Adverse Reaction (Mild, Verified 01/21/25 09:07) Over active bladder Medication List - Last Reconciled 06/12/25 by Alise Mitchell APRN acetaminophen 650 mg (2 x 325 mg) PO Q6H PRN 30 days atenolol 25 mg PO DAILY [Bedside commode Z96.651 - Presence of right artificial knee joint M17.11 - Unilateral primary osteoarthritis, right knee] blood sugar diagnostic (FreeStyle Lite Strips) As directed check the BS QD blood-glucose meter (FreeStyle Lite Meter kit) As directed calcium carbonate-vitamin D3 250 mg-3.125 mcg (125 unit) (Oyster Shell Calcium-Vitamin D3) 1 tab PO DAILY cholecalciferol (vitamin D3) 1 mcg PO DAILY clonazepam 2 mg PO BEDTIME 90 days cyanocobalamin (vitamin B-12) 1,000 mcg PO DAILY fluticasone propionate 50 mcg/actuation 2 sprays intranasal DAILY lancets (FreeStyle Lancets) As directed check BS QD lisinopril 10 mg PO DAILY 90 days metformin 500 mg PO QPM multivitamin 1 tab PO DAILY rosuvastatin 40 mg PO BEDTIME sertraline (Zoloft) 100 mg PO DAILY HPI- Psychiatric Chief Complaint: consultation HPI Narrative: Pt here for follow up re: medication management. She started at therapy but therapist left agency. Her PHQ9= 15 and her GAD7=15. She is feeling very depressed still; she is lonely; she is disapointed in her children who dont contact ot text her; recently she went out with some friends ands they tole her she was a ronit downer. she felt upset and betrayed as she said she always listens to their problems and has for years; she is struggling with depression and anxiety. she dneis SI or HI. she is adherent with zoloft 100mg daily Past Psychiatric History: long hx of outpt tx for depression and anxiety; trials of lexarpo, wellbutrin, cymbalta and zoloft; reports zoloft worked the best. Subjective Subjective Subjective Medication Compliance: Yes Side effects from medications: No Review of Systems Medical Review of Systems: unchanged Mental Status Exam Mental Status Exam Patient Appearance: Well Grooomed Patient Orientation: Person, Place, Time and Situation Level of Consciousness: Awake and Appropriate Patient Behavior: Appropriate and Talkative Mood Description: Anxious and Sad Affect Description: Anxious and Sad Patient Cognition Impaired: No Ability to Follow Directions: Good Speech Pattern: Clear and Coherent Memory Description: Intact Hallucinations: None Delusions: Not Present Thought Process: Intact Thought Content: positive for Intact Judgement: Fair Assessment and Plan Assessment & Plan (1) Major depression: Status: Acute Code(s): F32.9 - Major depressive disorder, single episode, unspecified (2) Generalized anxiety disorder: Status: Acute Code(s): F41.1 - Generalized anxiety disorder Plan follow up with [facility] for therapy and medications Increase zoloft to 150mg daily with food add abilify 2mg daily continue clonazepam 2 mg at bedtime retrun in 6 weeks Medications: New aripiprazole (Abilify) 2 mg PO DAILY 90 tabs 1RF Changed From sertraline (Zoloft) 100 mg PO DAILY 90 tabs 1RF F32.9 - Major depressive disorder, single episode, unspecified To sertraline (Zoloft) 150 mg (1.5 x 100 mg) PO DAILY 135 tabs 1RF F32.9 - Major depressive disorder, single episode, unspecified Refilled clonazepam 2 mg PO BEDTIME 90 tabs 1RF 90 days E78.00 - Pure hypercholesterolemia, unspecified Counseling and coordination of Care Pt. Self Management counseling: Maintenance-social rhythm, Nutrition education and improvement, Sleep hygiene, General coping skills and Problem solving Medication management counseling: Effectiveness, Side effects, Dosing range, Duration, Drug interaction and Adherence Diagnosis and Prognosis Counseling: Accuracy of diagnosis, Prognosis over time, Impact of diagnosis on life functions, Impact of family relationship, Problematic behaviors secondary to diagnosis and Adequacy of current interventions Details: I spent 45 minutes reviewing the record, seeing the patient and documenting in the medical record. Counseling provided to the patient/caregiver as outlined below. Addressed patient/caregiver concerns regarding current medication regime including effective adherence. Addressed patient/caregiver concerns regarding diagnosis and prognosis including accuracy of diagnosis, prognosis over time, impact of diagnosis. Addressed patient/caregiver concerns regarding impact of recent stressors. [facility] Medical History (Updated 05/27/25 @ 10:21 by Alexis Melara MD) Age-related osteoporosis without current pathological fracture Medicare annual wellness visit, subsequent Breast cancer screening by mammogram Non-insulin dependent type 2 diabetes mellitus Anemia IBS (irritable bowel syndrome) Osteoarthritis Osteopenia Skin cancer, basal cell Chronic renal insufficiency Patellofemoral instability of right knee with pain Annual physical exam Tinea corporis Foul smelling urine Osteoarthritis, knee Generalized anxiety disorder Bilateral hand numbness Annual physical exam Fatigue Right knee meniscal tear Osteoarthritis of right knee Internal derangement of right knee Knee effusion, right Right knee injury Sprain of right knee Osteoporosis Cervical compression fracture PTSD (post-traumatic stress disorder) Rectocele Type 2 diabetes mellitus with hyperglycemia Hypercholesterolemia Bladder prolapse Obesity (BMI 30-39.9) Anxiety and depression Vitamin D deficiency Hypertension Surgical History Hx of left knee surgery Hx of meniscectomy of right knee H/O colonoscopy History of bladder surgery History of section History of bilateral cataract extraction History of hysterectomy with bilateral oophorectomy Family History Mother Heart attack Father No problems noted. Sister Heart abnormality Social History Housing: Apartment Are you a primary nonfarm animal caretaker to a significant other at home: No Do you presently have visiting nurse or other home services: No Alcohol intake: never Patient Tobacco Use Status: Never used Tobacco Tobacco use type: Cigarette e-Cigarette/Vaping Use: Never Used Second Hand Smoke Exposure: No service: No Current occupational status: retired Current occupation: Right Handed Current occupational exposures/hazards: No Cognitive needs: No Hearing needs: No Vision needs: Yes Social History: lives alone. 4 adult children and 9 grandchildren. Substance History: none Trauma History: single parenting and pandemic very stressful for pt Coding Level of Care Code Est Pt Level 5 (02316) Diagnoses Major depression F32.9 Generalized anxiety disorder F41.1
--- OUTSIDE RECORDS SUMMARY | 2025-06-12 12:01 | XMS_ITS | Patient Health Record ---
Author Organization [facility] Address [address] [place] [address] Care Team Providers Care Site Reliability Engineer Name Role Phone Shelby Melaramiladymery Primary Care Provider Brigitte Mcnamara Unavailable [phone] Allergies Allergen (clinical drug ingredient) Drug/Non Drug [...] W/U Status Risk Notes Problem Plantar wart (21410517) Plantar wart (B07.0) Active confirmed Problem Polyneuropathy due to type 2 diabetes mellitus (878835525) Type 2 diabetes mellitus with diabetic polyneuropathy (E11.42) Active confirmed Plan Of Treatment Pending Test Test Name Order Date [id number] Plate 12/05/2013 [id number] SKIN LESIONS, OVER 4 12/06/19 14 [id number] NAIL(S) 12/05/2013 Insurance Providers Payer Name Payer Address Payer Phone Subscriber Number Group Number Insured Name Patient Relationship to Insured Coverage Start Date Coverage End Date BlueCare 65 Medicare Preferred [address] [place] [address] [phone] [id number] Michelle Garcia Self - patient is [...]
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
== END 2025-06-12 11:36 | disposition home or self-care (01) ==
LOC: HO.HOP 09:59
PROVIDERS: PCP Internal Medicine; Visit Provider Clinical Nurse Specialist Psychiatric/Mental Health
DX: F32.1 Major depressive disorder, single episode, moderate (principal); F41.1 Generalized anxiety disorder
CPT/HCPCS: 99215

== ENCOUNTER → 2025-06-12 09:59 | Outpatient (BNVA) | payer MEDICARE, SELFPAY | PROVIDERS: PCP Internal Medicine; Visit Provider Clinical Nurse Specialist Psychiatric/Mental Health | DX: F41.1 Generalized anxiety disorder (principal); F32.9 Major depressive disorder, single episode, unspecified | CPT/HCPCS: 99212 ==

== ENCOUNTER 2025-07-08 11:38 | Outpatient (REF) | payer MEDICARE, SELFPAY ==
--- OUTSIDE RECORDS SUMMARY | 2025-07-08 15:10 | XMS_ITS | Patient Health Record ---
Author Organization [facility] Address [address] [place] [address] Care Team Providers Care Oil Developer Name Role Phone Shelby Melaramiladymery Primary Care Provider Brigitte Mcnamara Unavailable [phone] Allergies Allergen (clinical drug ingredient) Drug/Non Drug [...] W/U Status Risk Notes Problem Plantar wart (92678295) Plantar wart (B07.0) Active confirmed Problem Polyneuropathy due to type 2 diabetes mellitus (805726707) Type 2 diabetes mellitus with diabetic polyneuropathy (E11.42) Active confirmed Plan Of Treatment Pending Test Test Name Order Date [id number]-Seuhvqyl Plate 12/05/2013 [id number] SKIN LESIONS, OVER 4 12/06/19 14 [id number] NAIL(S) 12/05/2013 Insurance Providers Payer Name Payer Address Payer Phone Subscriber Number Group Number Insured Name Patient Relationship to Insured Coverage Start Date Coverage End Date BlueCare 65 Medicare Preferred [address] [place] [address] [phone] [id number] 3 Michelle Garcia Self - patient is [...]
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
== END 2025-07-08 11:39 | disposition home or self-care (01) ==
LOC: HO.MAMMO 11:38
PROVIDERS: PCP Internal Medicine; Visit Provider Internal Medicine
DX: Z12.31 Encounter for screening mammogram for malignant neoplasm of breast (principal)
CPT/HCPCS: 77063; 77067

== ENCOUNTER → 2025-07-08 12:00 | Outpatient (BNV) | payer MEDICARE, SELFPAY | PROVIDERS: PCP Internal Medicine; Visit Provider Internal Medicine | DX: Z12.31 Encounter for screening mammogram for malignant neoplasm of breast (principal) | CPT/HCPCS: 77063; 77067 ==

== ENCOUNTER 2025-07-21 09:13 | Outpatient (AMB) | payer MEDICARE, SELFPAY ==
--- NOTE | 2025-07-21 09:28 | A.OFFPSYCH_ITS ---
Intake Intake Visit Reasons: f/u consultation Napkin Band Wrapper Required: No Allergies atorvastatin (From Lipitor) Allergy (Intermediate, Verified 01/21/25 09:07) Leg cramps simvastatin Allergy (Intermediate, Verified 01/21/25 09:07) leg cramps meperidine (From Demerol) Adverse Reaction (Intermediate, Verified 01/21/25 09:07) Vomiting, passed out celecoxib (From Celebrex) Adverse Reaction (Mild, Verified 01/21/25 09:07) Over active bladder Medication List - Last Reconciled 07/21/25 by Alise Mitchell, ENDOSCOPY TECHNICIAN acetaminophen 650 mg (2 x 325 mg) PO Q6H PRN 30 days aripiprazole (Abilify) 2 mg PO DAILY atenolol 25 mg PO DAILY [Bedside commode Z96.651 - Presence of right artificial knee joint M17.11 - Unilateral primary osteoarthritis, right knee] blood sugar diagnostic (FreeStyle Lite Strips) As directed check the BS QD blood-glucose meter (FreeStyle Lite Meter kit) As directed calcium carbonate-vitamin D3 250 mg-3.125 mcg (125 unit) (Oyster Shell Calcium- Vitamin D3) 1 tab PO DAILY cholecalciferol (vitamin D3) 1 mcg PO DAILY clonazepam 2 mg PO BEDTIME 90 days cyanocobalamin (vitamin B-12) 1,000 mcg PO DAILY fluticasone propionate 50 mcg/actuation 2 sprays intranasal DAILY lancets (FreeStyle Lancets) As directed check BS QD lisinopril 10 mg PO DAILY 90 days metformin 500 mg PO QPM multivitamin 1 tab PO DAILY rosuvastatin 40 mg PO BEDTIME sertraline (Zoloft) 150 mg (1.5 x 100 mg) PO DAILY HPI- Psychiatric Chief Complaint: f/u consultation HPI Narrative: Pt here for follow up re:depression and anxiety; she has been consistent with medications and feels they are helping; she reports feeling much less depressed; stats its like a cloud lifting. Her PHQ9=8 down from 15 and her GAD7= 12 down from 15. She has been more assertive with her children letting them know she needs support. She sees a [facility] therapist 2 x a month. She dneis SI or HI. She states she is ready to return ot her PCP for him to follow hermeds; she states if she needs to come back she will ask PCP to re-refer her. Past Psychiatric History: long hx of outpt tx for depression and anxiety; trials of lexarpo, wellbutrin, cymbalta and zoloft; reports zoloft worked the best. Subjective Subjective Medication Compliance: Yes Side effects from medications: No Review of Systems Medical Review of Systems: unchanged Mental Status Exam Mental Status Exam Patient Appearance: Well Grooomed Patient Orientation: Person, Place, Time and Situation Level of Consciousness: Awake and Appropriate Patient Behavior: Appropriate and Talkative Mood Description: Anxious and Sad Affect Description: Anxious and Sad Patient Cognition Impaired: No Ability to Follow Directions: Good Speech Pattern: Clear and Coherent Memory Description: Intact Hallucinations: None Delusions: Not Present Thought Process: Intact Thought Content: positive for Intact and positive for Goal Oriented Judgement: Fair Assessment and Plan Assessment & Plan (1) Major depression: Status: Acute Qualifiers: Major depression recurrence: recurrent Active/Remission status: in partial remission Qualified Code(s): F33.41 - Major depressive disorder, recurrent, in partial remission Code(s): F32.9 - Major depressive disorder, single episode, unspecified (2) Generalized anxiety disorder: Status: Acute Code(s): F41.1 - Generalized anxiety disorder Plan Increase zoloft to 200mg daily with food continue abilify 2mg daily continue clonazepam 2 mg at bedtime follow up with PCP Medications: Changed From sertraline (Zoloft) 150 mg (1.5 x 100 mg) PO DAILY 135 tabs 1RF F32.9 - Major depressive disorder, single episode, unspecified To sertraline (Zoloft) 200 mg (2 x 100 mg) PO DAILY 180 tabs 1RF F32.9 - Major depressive disorder, single episode, unspecified Refilled aripiprazole (Abilify) 2 mg PO DAILY 90 tabs 1RF clonazepam 2 mg PO BEDTIME 90 tabs 1RF 90 days E78.00 - Pure hypercholesterolemia, unspecified Counseling and coordination of Care Pt. Self Management counseling: Maintenance-social rhythm, Nutrition education and improvement, Sleep hygiene, General coping skills and Problem solving Medication management counseling: Effectiveness, Side effects, Dosing range, Duration, Drug interaction and Adherence Diagnosis and Prognosis Counseling: Accuracy of diagnosis, Prognosis over time, Impact of diagnosis on life functions, Impact of family relationship, Problematic behaviors secondary to diagnosis and Adequacy of current interventions Details: I spent 43 minutes reviewing the record, seeing the patient and documenting in the medical record. Counseling provided to the patient/caregiver as outlined below. Addressed patient/caregiver concerns regarding current medication regime including effective adherence. Addressed patient/caregiver concerns regarding diagnosis and prognosis including accuracy of diagnosis, prognosis over time, impact of diagnosis. Addressed patient/caregiver concerns regarding impact of recent stressors. [facility] Medical History (Updated 07/21/25 @ 12:29 by Alise Mitchell APRN) Age-related osteoporosis without current pathological fracture Medicare annual wellness visit, subsequent Breast cancer screening by mammogram Non-insulin dependent type 2 diabetes mellitus Anemia IBS (irritable bowel syndrome) Osteoarthritis Osteopenia Skin cancer, basal cell Chronic renal insufficiency Patellofemoral instability of right knee with pain Annual physical exam Tinea corporis Foul smelling urine Osteoarthritis, knee Generalized anxiety disorder Bilateral hand numbness Annual physical exam Fatigue Right knee meniscal tear Osteoarthritis of right knee Internal derangement of right knee Knee effusion, right Right knee injury Sprain of right knee Osteoporosis Cervical compression fracture PTSD (post-traumatic stress disorder) Rectocele Type 2 diabetes mellitus with hyperglycemia Hypercholesterolemia Bladder prolapse Obesity (BMI 30-39.9) Anxiety and depression Vitamin D deficiency Hypertension Surgical History Hx of left knee surgery Hx of meniscectomy of right knee H/O colonoscopy History of bladder surgery History of section History of bilateral cataract extraction History of hysterectomy with bilateral oophorectomy Family History Mother Heart attack Father No problems noted. Sister Heart abnormality Social History Housing: Apartment Are you a primary critical care physician to a significant other at home: No Do you presently have visiting nurse or other home services: No Alcohol intake: never Patient Tobacco Use Status: Never used Tobacco Tobacco use type: Cigarette e-Cigarette/Vaping Use: Never Used Second Hand Smoke Exposure: No service: No Current occupational status: retired Current occupation: Right Handed Current occupational exposures/hazards: No Cognitive needs: No Hearing needs: No Vision needs: Yes Social History: lives alone. 4 adult children and 9 grandchildren. Substance History: none Trauma History: single parenting and pandemic very stressful for pt Coding Level of Care Code Est Pt Level 4 (74355) Diagnoses Recurrent major depressive disorder, in partial remission F33.41 Major depression recurrence: recurrent Active/Remission status: in partial remission Generalized anxiety disorder F41.1
--- OUTSIDE RECORDS SUMMARY | 2025-07-21 10:13 | XMS_ITS | Patient Health Record ---
Author Organization [facility] Address [address] [place] [address] Care Team Providers Care Cisco Administrator Name Role Phone Shelby Melaramiladymery Primary Care Provider Brigitte Mcnamara Unavailable [phone] Allergies Allergen (clinical drug ingredient) Drug/Non Drug [...] W/U Status Risk Notes Problem Plantar wart (29068894) Plantar wart (B07.0) Active confirmed Problem Polyneuropathy due to type 2 diabetes mellitus (301302251) Type 2 diabetes mellitus with diabetic polyneuropathy (E11.42) Active confirmed Plan Of Treatment Pending Test Test Name Order Date 70209-Ugravzog Plate 12/05/2013 [id number] SKIN LESIONS, OVER 4 12/06/19 14 [id number] NAIL(S) 12/05/2013 Insurance Providers Payer Name Payer Address Payer Phone Subscriber Number Group Number Insured Name Patient Relationship to Insured Coverage Start Date Coverage End Date Blue[employer] 65 Medicare Preferred [address] [place] [address] [phone] [id number] 3 Michelle Garcia Self - patient is [...]
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
== END 2025-07-21 10:40 | disposition home or self-care (01) ==
LOC: HO.HOP 09:13
PROVIDERS: PCP Internal Medicine; Visit Provider Clinical Nurse Specialist Psychiatric/Mental Health
DX: F33.41 Major depressive disorder, recurrent, in partial remission (principal); F41.1 Generalized anxiety disorder
CPT/HCPCS: 99214

== ENCOUNTER → 2025-07-21 09:13 | Outpatient (BNVA) | payer MEDICARE, SELFPAY | PROVIDERS: PCP Internal Medicine; Visit Provider Clinical Nurse Specialist Psychiatric/Mental Health | DX: F33.41 Major depressive disorder, recurrent, in partial remission (principal); F41.1 Generalized anxiety disorder | CPT/HCPCS: 99212 ==